=== PATIENT | female | born 1950 | race Two or more races ===

== ENCOUNTER 2017-10-05 15:33 | Emergency (ER) | payer BC ==
[~2017-10-05] VITALS: Ht 160 cm; Wt 111.1 kg
[~2017-10-05 15:33] MED LIST: ALBU18; ASPI81CH43; ERGO1CAP6 PO; FLUT250M2 IN; FURO20TA; FURO20TA3 PO; POTA10CA29; POTA10TA75 PO; PROAIR
[2017-10-05 19:16] LABS: Basophils # (auto) 0 uL; Basophils % (auto) 0.5 % (0.0-2.0); Eosinophils # (auto) 0.1 uL; Eosinophils % (auto) 2.6 % (0.0-7.0); Hematocrit 36.3 % (36.0-46.0); Hemoglobin 12.7 g/dL (12.2-16.2); Lymphocytes % (auto) 17.6 % (10.0-50.0); Mean Corpuscular Hemoglobin 34.2 pg (28.0-32.0); Mean Corpuscular Hgb Conc. 34.9 g/dL (32.0-36.0); Mean Corpuscular Volume 97.9 fL (80.0-100.0); Monocytes # (auto) 0.5 uL; Monocytes % (auto) 7.9 % (0.0-12.0); Neutrophils # (auto) 4.2 uL; Neutrophils % (auto) 71.4 % (37.0-80.0); Nucleated Red Blood Cells % 0.1 %; Platelet Count (auto) 205 10^3/uL (140-450); Red Blood Cells 3.71 10^6/uL (4.0-5.20); Red Cell Distribution Width 15.6 % (11.8-14.3); White Blood Cell 5.9 10^3/uL (4.4-10.8)
[2017-10-05 19:19] LABS: Albumin 4.1 g/dL (3.4-5.0); BUN/Creatinine Ratio 34.8
[2017-10-05 19:29] LABS: Total Protein 7.9 g/dL (6.4-8.2)
[2017-10-06] MEDS ORDERED: HYDROcodone-ACET 5/325MG TAB PO ONE (00:30)
[2017-10-06] MEDS ORDERED: KETOROLAC TROMETH 60MG/2ML VIAL IM ONE (00:30)
[2017-10-06 00:41] VITALS: BP 140/86
== END 2017-10-06 00:45 | disposition home or self-care (01) ==
LOC: ER 15:33
DX: M79.604 Pain in right leg (principal); M06.9 Rheumatoid arthritis, unspecified; J45.909 Unspecified asthma, uncomplicated; M19.90 Unspecified osteoarthritis, unspecified site; Z98.51 Tubal ligation status; Z88.1 Allergy status to other antibiotic agents; Z88.8 Allergy status to other drugs, medicaments and biological substances; Z79.82 Long term (current) use of aspirin; Z79.899 Other long term (current) drug therapy
CPT/HCPCS: 36415; 80053; 85025; 93971; 96372; 99285; J1885

== ENCOUNTER → 2017-10-07 | Outpatient (CLI) | payer BC, MEDICARE ==
[2017-10-07 09:13] LABS: Basophils # (auto) 0 uL; Basophils % (auto) 0.7 % (0.0-2.0); Eosinophils # (auto) 0.1 uL; Eosinophils % (auto) 3.9 % (0.0-7.0); Hematocrit 35.8 % (36.0-46.0); Hemoglobin 12.2 g/dL (12.2-16.2); Lymphocytes # (auto) 0.7 uL; Lymphocytes % (auto) 23.3 % (10.0-50.0); Mean Corpuscular Hemoglobin 33.2 pg (28.0-32.0); Mean Corpuscular Hgb Conc. 34.2 g/dL (32.0-36.0); Monocytes # (auto) 0.2 uL; Monocytes % (auto) 5.2 % (0.0-12.0); Neutrophils # (auto) 2.1 uL; Neutrophils % (auto) 66.9 % (37.0-80.0); Nucleated Red Blood Cells % 0.1 %; Platelet Count (auto) 208 10^3/uL (140-450); White Blood Cell 3.1 10^3/uL (4.4-10.8)
[2017-10-07 09:20] LABS: Albumin 3.8 g/dL (3.4-5.0); BUN/Creatinine Ratio 28.8; Bilirubin, Total 0.8 mg/dL (0.2-1.0); CRP High Sensitivity 0.24 mg/dL (< 0.3); Calcium 8.5 mg/dL (8.5-10.1); Potassium 3.9 mmol/L (3.5-5.1); Total Protein 7.1 g/dL (6.4-8.2); Uric Acid 5.6 mg/dL (2.6-6.0)
[2017-10-07 09:23] LABS: Hepatitis B Surface Antibody Negative
[2017-10-07 10:01] LABS: Hepatitis A Total Antibody Positive
[2017-10-07 13:43] LABS: Hepatitis B Core Total AB Negative; Hepatitis B Surface Antigen Negative (Negative); Hepatitis C Antibody Negative (Negative)
== END | disposition home or self-care (01) ==
LOC: MERGE 07:56 → LAB 07:56
DX: M06.9 Rheumatoid arthritis, unspecified (principal); M79.7 Fibromyalgia; I10 Essential (primary) hypertension; Z79.899 Other long term (current) drug therapy
CPT/HCPCS: 36415; 80053; 82306; 82550; 82607; 84443; 84550; 85025; 85652; 86038; 86141; 86200; 86431; 86704; 86706; 86708; 86803; 86812; 87340

== ENCOUNTER 2017-10-12 09:44 | Inpatient (IN) | payer BC, MEDICARE ==
[~2017-10-12] VITALS: Ht 154.9 cm; Wt 107.0 kg
[2017-10-12] MEDS ORDERED: SODIUM CHLORIDE 0.9% 500 ML IVB ONE (10:09)
[2017-10-12] MEDS ORDERED: ONDANSETRON HCL 4 MG/2 ML VIAL IV ONE ×2 (10:15→12:00)
[2017-10-12] MEDS ORDERED: MORPHINE SULFATE 4 MG/ML SYR/VIAL IV ONE ×2 (10:15→12:00)
[2017-10-12 10:42] LABS: Basophils # (auto) 0 uL; Basophils % (auto) 0.6 % (0.0-2.0); Eosinophils # (auto) 0 uL; Eosinophils % (auto) 0.9 % (0.0-7.0); Hematocrit 38.6 % (36.0-46.0); Hemoglobin 13.6 g/dL (12.2-16.2); Lymphocytes # (auto) 0.4 uL; Lymphocytes % (auto) 7.6 % (10.0-50.0); Mean Corpuscular Hemoglobin 33.5 pg (28.0-32.0); Mean Corpuscular Hgb Conc. 35.1 g/dL (32.0-36.0); Mean Corpuscular Volume 95.5 fL (80.0-100.0); Monocytes # (auto) 0.4 uL; Monocytes % (auto) 8.3 % (0.0-12.0); Neutrophils # (auto) 4.4 uL; Neutrophils % (auto) 82.6 % (37.0-80.0); Platelet Count (auto) 184 10^3/uL (140-450); Red Blood Cells 4.04 10^6/uL (4.0-5.20); Red Cell Distribution Width 15.6 % (11.8-14.3); White Blood Cell 5.3 10^3/uL (4.4-10.8)
[2017-10-12] MEDS ORDERED: MORPHINE SULFATE 8mg/ml INJ SDV IV ONE ×2 (10:45→12:00)
[2017-10-12] MEDS ORDERED: ACYCLOVIR 400 MG TAB PO ONE (10:45)
[2017-10-12 11:02] LABS: Albumin 4.1 g/dL (3.4-5.0); BUN/Creatinine Ratio 16.4; Bilirubin, Total 1.6 mg/dL (0.2-1.0); Magnesium 2.2 mg/dL (1.6-2.6); Potassium 3.8 mmol/L (3.5-5.1); Total Protein 7.9 g/dL (6.4-8.2)
[2017-10-12] MEDS ORDERED: MORPHINE SULFATE 4 MG/ML SYR/VIAL IV PRN ×2 (14:00)
[2017-10-12] MEDS ORDERED: ALBUTEROL SULF 2.5 MG/0.5ML(0.5%) NEB SOLN NEB PRN (14:00)
[2017-10-12] MEDS ORDERED: DEXTROSE (50%) 50ML SYRG IV PRN (14:00)
[2017-10-12] MEDS ORDERED: ONDANSETRON HCL 4 MG/2 ML VIAL IV PRN (14:00)
[2017-10-12] MEDS ORDERED: cefTRIAXone 1GM/10ml IVPUSH 10 ML IV ONE (14:00)
[2017-10-12] MEDS ORDERED: NITROGLYCERIN 0.4 MG SL TAB SL PRN (14:00)
[2017-10-12] MEDS ORDERED: TEMAZEPAM 15 MG CAP PO PRN (14:00)
[2017-10-12] MEDS ORDERED: ACETAMINOPHEN 325 MG TAB PO PRN (14:00)
[2017-10-12] MEDS ORDERED: DOCUSATE SOD 100 MG CAP PO PRN (14:00)
[2017-10-12] MEDS: SODIUM CHLOR 0.9% PF (SALINE LOCK) 10ML VIAL/SYR IV SCH ×2 (14:09→22:52)
[2017-10-12] MEDS: ZINC SULFATE 220 MG CAP PO SCH (14:45)
[2017-10-12] MEDS: ASCORBIC ACID 500 MG TAB PO SCH ×2 (14:45→22:37)
[2017-10-12] MEDS: ACYCLOVIR 400 MG TAB PO SCH ×3 (14:45→22:37)
[2017-10-12 16:21] VITALS: BP 109/59
[2017-10-12 16:36] LABS: Urine Bacteria NONE SEEN /hpf (None Seen); Urine Blood Negative /uL (Negative); Urine Specific Gravity 1.008 (1.001-1.035); Urine WBC 51 /hpf (0 - 5)
[2017-10-12 16:37] VITALS: BP 109/59
[2017-10-12 17:00] VITALS: BP 111/58
[2017-10-12] MEDS: InsuLIN REG 1unit/0.01ml Soln (100units/ml) SC SCH ×2 (17:00→22:50)
[2017-10-12 17:18] VITALS: BP 109/59
[2017-10-12] MEDS: ACCU-CHEK COMFORT CURVE STRIP VI SCH ×2 (18:08→22:41)
[2017-10-12] MEDS: HYDROcodone-ACET 5/325MG TAB PO PRN ×2 (18:28→22:38)
[2017-10-12] MEDS: BUDESONIDE (INHALATION) 0.5 MG/2 ML NEB NEB SCH (19:25)
[2017-10-12 22:00] VITALS: BP 109/61
[2017-10-12] MEDS: FAMOTIDINE 20 MG TAB PO SCH (22:37)
[2017-10-13 05:00] VITALS: BP 130/67
[2017-10-13] MEDS: ACCU-CHEK COMFORT CURVE STRIP VI SCH ×3 (06:02→17:00)
[2017-10-13] MEDS: ACYCLOVIR 400 MG TAB PO SCH ×3 (06:02→14:50)
[2017-10-13] MEDS: SODIUM CHLOR 0.9% PF (SALINE LOCK) 10ML VIAL/SYR IV SCH ×2 (06:02→14:00)
[2017-10-13] MEDS: InsuLIN REG 1unit/0.01ml Soln (100units/ml) SC SCH ×3 (06:12→17:00)
[2017-10-13] MEDS: HYDROcodone-ACET 5/325MG TAB PO PRN ×2 (06:12→14:49)
[2017-10-13 06:42] LABS: Basophils # (auto) 0 uL; Basophils % (auto) 0.8 % (0.0-2.0); Eosinophils # (auto) 0.1 uL; Eosinophils % (auto) 3.3 % (0.0-7.0); Hematocrit 32.9 % (36.0-46.0); Hemoglobin 11.6 g/dL (12.2-16.2); Lymphocytes # (auto) 0.6 uL; Lymphocytes % (auto) 15.2 % (10.0-50.0); Mean Corpuscular Hgb Conc. 35.4 g/dL (32.0-36.0); Mean Corpuscular Volume 96.1 fL (80.0-100.0); Monocytes # (auto) 0.6 uL; Neutrophils # (auto) 2.6 uL; Neutrophils % (auto) 65.7 % (37.0-80.0); Nucleated Red Blood Cells % 0.3 %; Platelet Count (auto) 144 10^3/uL (140-450); Red Blood Cells 3.43 10^6/uL (4.0-5.20); Red Cell Distribution Width 15.7 % (11.8-14.3)
[2017-10-13 07:02] LABS: Potassium 3.9 mmol/L (3.5-5.1)
[2017-10-13 07:17] LABS: Albumin 3.4 g/dL (3.4-5.0); BUN/Creatinine Ratio 21.9; Calcium 8.8 mg/dL (8.5-10.1)
[2017-10-13 07:30] LABS: Bilirubin, Total 1.9 mg/dL (0.2-1.0); Total Protein 6.9 g/dL (6.4-8.2)
[2017-10-13] MEDS: BUDESONIDE (INHALATION) 0.5 MG/2 ML NEB NEB SCH (07:32)
[2017-10-13 08:00] VITALS: BP 124/58
[2017-10-13 09:00] VITALS: BP_SYST 107; BP_SYST 124; BP_DIAS 58; BP_DIAS 75
[2017-10-13] MEDS ORDERED: cefTRIAXone 1GM/10ml IVPUSH 10 ML IV SCH (09:00)
[2017-10-13] MEDS ORDERED: MULTIPLE VITAMIN TAB PO SCH (10:00)
[2017-10-13] MEDS ORDERED: B-COMPLEX W/ C & FOLIC ACID(NEPHROVITE TAB) PO SCH (10:00)
[2017-10-13] MEDS ORDERED: ASPirin-EC 325mg tab PO SCH (10:00)
[2017-10-13] MEDS ORDERED: POTASSIUM CHL 10 Meq TABLET PO SCH (10:00)
[2017-10-13] MEDS ORDERED: FUROSEMIDE 20 MG TAB PO SCH (10:00)
[2017-10-13] MEDS: ZINC SULFATE 220 MG CAP PO SCH (10:09)
[2017-10-13] MEDS: FAMOTIDINE 20 MG TAB PO SCH (10:10)
[2017-10-13] MEDS: ASCORBIC ACID 500 MG TAB PO SCH (10:10)
[2017-10-13 13:00] VITALS: BP 107/75
[2017-10-13 17:00] VITALS: BP 126/74
== END 2017-10-13 17:30 | disposition home or self-care (01) | DRG 872 ==
LOC: ER 09:50 → TELE 09:51 → TELE-WESTW 15:10
PROVIDERS: ADMIT Internal Medicine; ATTEND Family Medicine
DX: A41.9 Sepsis, unspecified organism (principal); B02.9 Zoster without complications; E66.01 Morbid (severe) obesity due to excess calories; N18.3 Chronic kidney disease, stage 3 (moderate); E87.1 Hypo-osmolality and hyponatremia; N28.1 Cyst of kidney, acquired; N12 Tubulo-interstitial nephritis, not specified as acute or chronic; Z68.41 Body mass index [BMI] 40.0-44.9, adult; J45.909 Unspecified asthma, uncomplicated; K40.90 Unilateral inguinal hernia, without obstruction or gangrene, not specified as recurrent; K57.30 Diverticulosis of large intestine without perforation or abscess without bleeding; M19.90 Unspecified osteoarthritis, unspecified site; Z86.73 Personal history of transient ischemic attack (TIA), and cerebral infarction without residual deficits; I70.8 Atherosclerosis of other arteries; L08.82 Omphalitis not of newborn; R73.9 Hyperglycemia, unspecified
CPT/HCPCS: 36415; 74176; 80053; 81001; 82150; 82962; 83036; 83605; 83690; 83735; 84443; 85025; 87040; 87086; 94640; 96361; 96374; 96375; J1815; J2270; J2405

== ENCOUNTER → 2017-11-11 | Outpatient (CLI) | payer BC, MEDICARE ==
[2017-11-11 16:27] LABS: Basophils # (auto) 0 uL; Basophils % (auto) 0.3 % (0.0-2.0); Eosinophils # (auto) 0.1 uL; Eosinophils % (auto) 1.6 % (0.0-7.0); Hemoglobin 13.4 g/dL (12.2-16.2); Lymphocytes # (auto) 1.3 uL; Lymphocytes % (auto) 21.9 % (10.0-50.0); Mean Corpuscular Hemoglobin 33.6 pg (28.0-32.0); Mean Corpuscular Hgb Conc. 35.1 g/dL (32.0-36.0); Mean Corpuscular Volume 95.7 fL (80.0-100.0); Monocytes # (auto) 0.4 uL; Monocytes % (auto) 6.3 % (0.0-12.0); Neutrophils # (auto) 4.2 uL; Neutrophils % (auto) 69.9 % (37.0-80.0); Nucleated Red Blood Cells % 0.1 %; Platelet Count (auto) 192 10^3/uL (140-450); Red Blood Cells 3.97 10^6/uL (4.0-5.20); Red Cell Distribution Width 15.6 % (11.8-14.3)
[2017-11-11 16:33] LABS: Urine Bacteria FEW /hpf (None Seen); Urine Blood Negative /uL (Negative); Urine Mucus FEW (None Seen); Urine Specific Gravity 1.024 (1.001-1.035); Urine WBC 113 /hpf (0 - 5); Urine WBC Clumps PRESENT /hpf (None Seen)
[2017-11-11 16:35] LABS: BUN/Creatinine Ratio 24.6; Calcium 8.8 mg/dL (8.5-10.1)
[2017-11-12 10:29] LABS: Hepatitis B Surface Antibody Negative
[2017-11-12 12:13] LABS: Hepatitis B Surface Antigen Negative (Negative)
== END | disposition home or self-care (01) ==
LOC: LAB 12:21
PROVIDERS: ATTEND Student in an Organized Health Care Education/Training Program
DX: N39.0 Urinary tract infection, site not specified (principal); N18.3 Chronic kidney disease, stage 3 (moderate); D63.1 Anemia in chronic kidney disease; B17.8 Other specified acute viral hepatitis; R76.0 Raised antibody titer; R79.82 Elevated C-reactive protein (CRP); R80.9 Proteinuria, unspecified; R82.90 Unspecified abnormal findings in urine
CPT/HCPCS: 36415; 80048; 81001; 82570; 84156; 85025; 86160; 86225; 86235; 86256; 86706; 87086; 87340

== ENCOUNTER → 2018-01-07 | Outpatient (CLI) | payer BC, MEDICARE | END | disposition home or self-care (01) | LOC: LAB 12:03 | PROVIDERS: ATTEND Student in an Organized Health Care Education/Training Program | DX: R76.9 Abnormal immunological finding in serum, unspecified (principal); N18.3 Chronic kidney disease, stage 3 (moderate); Z88.0 Allergy status to penicillin; Z88.2 Allergy status to sulfonamides | CPT/HCPCS: 84156; 84166 ==

== ENCOUNTER → 2018-01-20 | Outpatient (CLI) | payer BC, MEDICARE ==
[~2018-01-20] MED LIST changes: +MIDAZOLAM HCL 1MG/1ML-2 ML VIAL ONE; +fentaNYL CITRATE 100 MCG/2 ML VL ONE
[2018-01-20 09:01] LABS: Basophils # (auto) 0 uL
[2018-01-20 09:03] LABS: Basophils % (auto) 0.7 % (0.0-2.0); Eosinophils # (auto) 0.2 uL; Eosinophils % (auto) 3.3 % (0.0-7.0); Hematocrit 37.1 % (36.0-46.0); Lymphocytes # (auto) 1.3 uL; Mean Corpuscular Hemoglobin 33.9 pg (28.0-32.0); Mean Corpuscular Hgb Conc. 35.1 g/dL (32.0-36.0); Mean Corpuscular Volume 96.5 fL (80.0-100.0); Monocytes # (auto) 0.3 uL; Monocytes % (auto) 7.2 % (0.0-12.0); Neutrophils % (auto) 62.8 % (37.0-80.0); Platelet Count (auto) 220 10^3/uL (140-450); Red Blood Cells 3.84 10^6/uL (4.0-5.20); Red Cell Distribution Width 15.3 % (11.8-14.3); White Blood Cell 4.8 10^3/uL (4.4-10.8)
[2018-01-20 09:09] LABS: INR 0.88 (0.9-1.15); Partial Thromboplastin Time 26.8 sec (23.78-33.04); Prothrombin Time 9.5 sec (9.27-12.13)
[2018-01-20 10:31] LABS: Albumin 3.7 g/dL (3.4-5.0); BUN/Creatinine Ratio 27.5; Calcium 8.5 mg/dL (8.5-10.1); Potassium 4.2 mmol/L (3.5-5.1)
== END | disposition home or self-care (01) ==
LOC: LAB 07:59
PROVIDERS: ATTEND Urology
DX: N28.1 Cyst of kidney, acquired (principal); I12.9 Hypertensive chronic kidney disease with stage 1 through stage 4 chronic kidney disease, or unspecified chronic kidney disease; N18.3 Chronic kidney disease, stage 3 (moderate)
CPT/HCPCS: 36415; 80053; 85025; 85610; 85730

== ENCOUNTER → 2018-01-21 | Outpatient (CLI) | payer BC, MEDICARE ==
[~2018-01-21] MED LIST changes: +GELATIN 1 SPONGE SIZE 100 TOP ONE; +LIDOCAINE 2% (LOCAL ANESTH.) PF 5ml SDV ONE; -MIDAZOLAM HCL 1MG/1ML-2 ML VIAL ONE; -fentaNYL CITRATE 100 MCG/2 ML VL ONE
== END | disposition home or self-care (01) ==
LOC: CT 08:17
PROVIDERS: ATTEND Urology
DX: N28.1 Cyst of kidney, acquired (principal); Z88.1 Allergy status to other antibiotic agents; Z88.2 Allergy status to sulfonamides; F41.9 Anxiety disorder, unspecified; F10.99 Alcohol use, unspecified with unspecified alcohol-induced disorder; Z82.49 Family history of ischemic heart disease and other diseases of the circulatory system
CPT/HCPCS: 50390; 74150; 75989; 76942; 88104; 88305; C1729; J2001; J2250; J3010; 10022

== ENCOUNTER → 2018-02-09 | Outpatient (CLI) | payer BC, MEDICARE ==
[~2018-02-09] MED LIST changes: -GELATIN 1 SPONGE SIZE 100 TOP ONE; -LIDOCAINE 2% (LOCAL ANESTH.) PF 5ml SDV ONE
[2018-02-09 08:34] LABS: Basophils # (auto) 0 uL; Eosinophils # (auto) 0.1 uL; Eosinophils % (auto) 2.7 % (0.0-7.0); Hematocrit 36.9 % (36.0-46.0); Hemoglobin 13.2 g/dL (12.2-16.2); Lymphocytes # (auto) 1.1 uL; Lymphocytes % (auto) 24.5 % (10.0-50.0); Mean Corpuscular Hemoglobin 35.4 pg (28.0-32.0); Mean Corpuscular Hgb Conc. 35.9 g/dL (32.0-36.0); Mean Corpuscular Volume 98.4 fL (80.0-100.0); Monocytes # (auto) 0.4 uL; Monocytes % (auto) 8.5 % (0.0-12.0); Neutrophils % (auto) 63.3 % (37.0-80.0); Platelet Count (auto) 207 10^3/uL (140-450); Red Blood Cells 3.75 10^6/uL (4.0-5.20); Red Cell Distribution Width 15.4 % (11.8-14.3); White Blood Cell 4.7 10^3/uL (4.4-10.8)
[2018-02-09 08:58] LABS: BUN/Creatinine Ratio 26.9; Calcium 8.5 mg/dL (8.5-10.1); Potassium 4.1 mmol/L (3.5-5.1)
[2018-02-09 12:48] LABS: Urine Bacteria NONE SEEN /hpf (None Seen); Urine Blood Negative /uL (Negative); Urine Mucus FEW (None Seen); Urine Specific Gravity 1.027 (1.001-1.035); Urine WBC 16 /hpf (0 - 5)
[2018-02-09 13:18] LABS: Protein, Urine 13.9 mg/dL (0.0-11.9)
== END | disposition home or self-care (01) ==
LOC: LAB 08:12
PROVIDERS: ATTEND Student in an Organized Health Care Education/Training Program
DX: I12.9 Hypertensive chronic kidney disease with stage 1 through stage 4 chronic kidney disease, or unspecified chronic kidney disease (principal); N18.3 Chronic kidney disease, stage 3 (moderate); D63.1 Anemia in chronic kidney disease; R80.9 Proteinuria, unspecified; E21.3 Hyperparathyroidism, unspecified
CPT/HCPCS: 36415; 80048; 80061; 81001; 82570; 84156; 85025

== ENCOUNTER → 2018-03-03 | Outpatient (CLI) | payer BC, MEDICARE | END | disposition home or self-care (01) | LOC: LAB 14:34 | PROVIDERS: ATTEND Urology | DX: N39.0 Urinary tract infection, site not specified (principal) | CPT/HCPCS: 87086 ==

== ENCOUNTER → 2018-03-21 | Outpatient (CLI) | payer BC, MEDICARE ==
[2018-03-21 13:04] LABS: Basophils # (auto) 0 uL; Eosinophils # (auto) 0.1 uL; Hemoglobin 13.4 g/dL (12.2-16.2); Mean Corpuscular Hemoglobin 34.1 pg (28.0-32.0); Mean Corpuscular Hgb Conc. 34.8 g/dL (32.0-36.0); Mean Corpuscular Volume 97.9 fL (80.0-100.0); Monocytes # (auto) 0.3 uL; Neutrophils # (auto) 2.6 uL; Nucleated Red Blood Cells % 0.1 %; White Blood Cell 4.1 10^3/uL (4.4-10.8)
[2018-03-21 13:09] LABS: Basophils % (auto) 0.6 % (0.0-2.0); Eosinophils % (auto) 3.2 % (0.0-7.0); Hematocrit 38.5 % (36.0-46.0); Lymphocytes # (auto) 1.1 uL; Lymphocytes % (auto) 26.3 % (10.0-50.0); Monocytes % (auto) 6.5 % (0.0-12.0); Neutrophils % (auto) 63.4 % (37.0-80.0); Platelet Count (auto) 193 10^3/uL (140-450); Red Blood Cells 3.93 10^6/uL (4.0-5.20); Red Cell Distribution Width 14.4 % (11.8-14.3)
[2018-03-21 13:32] LABS: Hepatitis B Surface Antibody Negative
[2018-03-21 13:38] LABS: Albumin 3.7 g/dL (3.4-5.0); Bilirubin, Total 0.9 mg/dL (0.2-1.0); CRP High Sensitivity 0.16 mg/dL (< 0.3); Calcium 8.5 mg/dL (8.5-10.1); Total Protein 7.3 g/dL (6.4-8.2)
[2018-03-21 13:59] LABS: Urine Bacteria NONE SEEN /hpf (None Seen); Urine Blood Negative /uL (Negative); Urine Mucus FEW (None Seen); Urine Specific Gravity 1.027 (1.001-1.035); Urine WBC 2 /hpf (0 - 5)
[2018-03-21 14:11] LABS: Hepatitis A Total Antibody Positive
[2018-03-21 14:23] LABS: Protein, Urine 17.8 mg/dL (0.0-11.9)
[2018-03-21 14:36] LABS: Hepatitis B Core Total AB Negative; Hepatitis B Surface Antigen Negative (Negative); Hepatitis C Antibody Negative (Negative)
[2018-03-22 09:07] LABS: Immunoglobulin G, Serum 947 mg/dL (700-1600)
== END | disposition home or self-care (01) ==
LOC: LAB 10:57
PROVIDERS: ATTEND Internal Medicine
DX: E03.5 Myxedema coma (principal); M85.89 Other specified disorders of bone density and structure, multiple sites; M06.9 Rheumatoid arthritis, unspecified; N28.1 Cyst of kidney, acquired; I10 Essential (primary) hypertension
CPT/HCPCS: 36415; 80053; 81001; 82085; 82306; 82550; 82570; 82784; 84155; 84156; 84165; 84166; 84443; 85025; 85652; 86141; 86160; 86200; 86334; 86431; 86704; 86706; 86708; 86800; 86803; 87340

== ENCOUNTER → 2018-09-15 | Outpatient (CLI) | payer BC, MEDICARE ==
[2018-09-15 08:16] LABS: Albumin 3.7 g/dL (3.4-5.0); Calcium 8.5 mg/dL (8.5-10.1); Potassium 4.3 mmol/L (3.5-5.1)
[2018-09-15 08:52] LABS: Bilirubin, Total 0.6 mg/dL (0.2-1.0); Total Protein 6.8 g/dL (6.4-8.2)
[2018-09-15 16:18] LABS: Urine Bacteria FEW /hpf (None Seen); Urine Blood TRACE /uL (Negative); Urine Specific Gravity 1.022 (1.001-1.035); Urine WBC 114 /hpf (0 - 5)
== END | disposition home or self-care (01) ==
LOC: LAB 07:26
DX: R10.9 Unspecified abdominal pain (principal)
CPT/HCPCS: 36415; 80053; 81001; 87086

== ENCOUNTER → 2018-10-24 | Outpatient (CLI) | payer BC, MEDICARE | END | disposition home or self-care (01) | LOC: LAB 08:51 | PROVIDERS: ATTEND Nurse Practitioner Family | DX: R05 Cough (principal) | CPT/HCPCS: 87070; 87205 ==

== ENCOUNTER → 2019-02-03 | Outpatient (CLI) | payer BC, MEDICARE ==
[~2019-02-03] MED LIST changes: +FURO1TAB33; -FURO20TA
[2019-02-03 12:41] LABS: Basophils # (auto) 0.1 uL; Eosinophils # (auto) 0.1 uL; Eosinophils % (auto) 1.9 % (0.0-7.0); Hematocrit 39.7 % (36.0-46.0); Hemoglobin 13.7 g/dL (12.2-16.2); Lymphocytes # (auto) 1.2 uL; Lymphocytes % (auto) 22.6 % (10.0-50.0); Mean Corpuscular Hemoglobin 33.8 pg (28.0-32.0); Mean Corpuscular Hgb Conc. 34.5 g/dL (32.0-36.0); Mean Corpuscular Volume 98.1 fL (80.0-100.0); Monocytes # (auto) 0.3 uL; Monocytes % (auto) 5.7 % (0.0-12.0); Neutrophils # (auto) 3.7 uL; Neutrophils % (auto) 68.8 % (37.0-80.0); Nucleated Red Blood Cells % 0.1 %; Platelet Count (auto) 217 10^3/uL (140-450); Red Blood Cells 4.05 10^6/uL (4.0-5.20); White Blood Cell 5.4 10^3/uL (4.4-10.8)
[2019-02-03 13:00] LABS: Urine Bacteria FEW /hpf (None Seen); Urine Blood Negative /uL (Negative); Urine Specific Gravity 1.021 (1.001-1.035); Urine WBC 15 /hpf (0 - 5)
[2019-02-03 13:32] LABS: Albumin 4.1 g/dL (3.4-5.0); Calcium 9.2 mg/dL (8.5-10.1); Potassium 3.5 mmol/L (3.5-5.1)
[2019-02-03 13:36] LABS: BUN/Creatinine Ratio 24.4; Bilirubin, Total 0.8 mg/dL (0.2-1.0); CRP High Sensitivity 0.1 mg/dL (< 0.3); Total Protein 7.8 g/dL (6.4-8.2)
== END | disposition home or self-care (01) ==
LOC: LAB 11:56
PROVIDERS: ATTEND Internal Medicine
DX: Z00.00 Encounter for general adult medical examination without abnormal findings (principal); N28.1 Cyst of kidney, acquired; I10 Essential (primary) hypertension; E55.9 Vitamin D deficiency, unspecified; M32.10 Systemic lupus erythematosus, organ or system involvement unspecified; M05.79 Rheumatoid arthritis with rheumatoid factor of multiple sites without organ or systems involvement
CPT/HCPCS: 36415; 80053; 80061; 81001; 83036; 84156; 84439; 84443; 85025; 85652; 86141; 86160; 86200; 86225; 86431

== ENCOUNTER 2019-04-10 08:21 | Day surgery (SDC) | payer BC, MEDICARE ==
[2019-04-06 12:15] LABS: Basophils # (auto) 0 uL; Basophils % (auto) 0.8 % (0.0-2.0); Eosinophils # (auto) 0.1 uL; Eosinophils % (auto) 2.4 % (0.0-7.0); Hematocrit 38.7 % (36.0-46.0); Hemoglobin 13.5 g/dL (12.2-16.2); Lymphocytes # (auto) 1.3 uL; Mean Corpuscular Hemoglobin 33.6 pg (28.0-32.0); Mean Corpuscular Hgb Conc. 34.8 g/dL (32.0-36.0); Mean Corpuscular Volume 96.4 fL (80.0-100.0); Monocytes # (auto) 0.4 uL; Monocytes % (auto) 7.9 % (0.0-12.0); Neutrophils # (auto) 3.4 uL; Neutrophils % (auto) 64.9 % (37.0-80.0); Nucleated Red Blood Cells % 0.2 %; Platelet Count (auto) 236 10^3/uL (140-450); Red Blood Cells 4.01 10^6/uL (4.0-5.20); Red Cell Distribution Width 14.4 % (11.8-14.3); White Blood Cell 5.3 10^3/uL (4.4-10.8)
[2019-04-06 12:45] LABS: INR 0.99 (0.9-1.15); Partial Thromboplastin Time 26.3 sec (23.64-32.05)
[~2019-04-10] VITALS: Ht 160 cm; Wt 113.4 kg
[~2019-04-10 08:21] MED LIST changes: -ALBU18; +ALBU18 IN; -ASPI81CH43; +ASPI81CH43 PO; -ERGO1CAP6 PO; -FLUT250M2 IN; -FURO1TAB33; -FURO20TA3 PO; +HYDR-4188 PO; +LIDOCAINE VISCOUS 2% 15ML UD ONE; +METH2.5T3 PO; -POTA10CA29; -POTA10TA75 PO; -PROAIR; +SODIUM CHLORIDE LOCK 10 ML ONE
[2019-04-10] MEDS ORDERED: diphenhdrAMINE HCL 50 MG/1 ML VL ONE (08:22)
[2019-04-10] MEDS: fentaNYL CITRATE 100 MCG/2 ML VL ONE ×2 (08:52→09:04)
[2019-04-10] MEDS: MIDAZOLAM HCL 5 MG/ML-1ML VIAL ONE ×2 (08:52→09:04)
[2019-04-10 09:43] VITALS: BP 133/77
== END 2019-04-10 09:55 | disposition home or self-care (01) ==
LOC: GI 08:21
PROVIDERS: ATTEND Internal Medicine Gastroenterology
DX: K63.5 Polyp of colon (principal); K29.80 Duodenitis without bleeding; K57.30 Diverticulosis of large intestine without perforation or abscess without bleeding; K29.50 Unspecified chronic gastritis without bleeding; J45.909 Unspecified asthma, uncomplicated; D64.9 Anemia, unspecified; N18.3 Chronic kidney disease, stage 3 (moderate); Z86.73 Personal history of transient ischemic attack (TIA), and cerebral infarction without residual deficits; Z79.01 Long term (current) use of anticoagulants; Z98.51 Tubal ligation status; Z98.890 Other specified postprocedural states; Z79.899 Other long term (current) drug therapy; Z88.2 Allergy status to sulfonamides; Z88.1 Allergy status to other antibiotic agents
CPT/HCPCS: 36415; 43239; 45378; 85025; 85610; 85730; 88305; 88342; J1200; J2250; J3010; J7030; 99152

== ENCOUNTER 2019-05-30 14:23 | Inpatient (IN) | payer BC, MEDICARE ==
[~2019-05-30] VITALS: Ht 160 cm; Wt 121.3 kg
[~2019-05-30 14:23] MED LIST changes: -LIDOCAINE VISCOUS 2% 15ML UD ONE; -SODIUM CHLORIDE LOCK 10 ML ONE
--- NOTE | 2019-05-30 14:30 | NUR ---
Direct Admit Note SIOBHAN ASHRAF admitted to Telemetry unit as a direct admit per MD order. Patient oriented to JESS ESCOBAR,RN primary RN, unit, room, bed, and unit policies regarding patient care and visiting hours. Patient now on continuous telemetry monitoring, tele box #10 and telemetry reading on arrival to unit is ST 102BPM. Patient placed on bedside oxygen @ 3L N/C, weighed by bedscale and encouraged to call if they need something. Bed in lowest/locked position, bed rails up x2, call light within reach. All questions and concerns addressed, patient verbalized understanding. MD notified of patients arrival and admit orders received.
[2019-05-30] MEDS ORDERED: ONDANSETRON HCL 4 MG/2 ML VIAL IV PRN (15:00)
[2019-05-30] MEDS ORDERED: NITROGLYCERIN 0.4 MG SL TAB SL PRN (15:00)
[2019-05-30] MEDS ORDERED: cefTRIAXone 1GM/50ML D5W 50 ML IV ONE (15:00)
[2019-05-30] MEDS ORDERED: ALUM & MAG HYDROX-SIMETH LIQ(MAALOX) 30 ML PO PRN (15:00)
[2019-05-30] MEDS ORDERED: MORPHINE SULF INJ 2 MG/ML SYRINGE 1ML IV PRN (15:00)
[2019-05-30] MEDS ORDERED: TEMAZEPAM 15 MG CAP PO PRN (15:00)
[2019-05-30] MEDS ORDERED: HYDROcodone-ACET 5/325MG TAB PO PRN (15:00)
[2019-05-30 15:06] VITALS: BP 129/74
[2019-05-30 15:22] LABS: Basophils # (auto) 0.1 uL; Basophils % (auto) 1.2 % (0.0-2.0); Eosinophils # (auto) 0.1 uL; Eosinophils % (auto) 2.7 % (0.0-7.0); Hematocrit 37.9 % (36.0-46.0); Lymphocytes # (auto) 0.9 uL; Mean Corpuscular Hemoglobin 33.6 pg (28.0-32.0); Mean Corpuscular Hgb Conc. 34.4 g/dL (32.0-36.0); Mean Corpuscular Volume 97.7 fL (80.0-100.0); Monocytes # (auto) 0.4 uL; Monocytes % (auto) 8.5 % (0.0-12.0); Neutrophils # (auto) 3.3 uL; Neutrophils % (auto) 69.6 % (37.0-80.0); Nucleated Red Blood Cells % 0.1 %; Platelet Count (auto) 198 10^3/uL (140-450); Red Blood Cells 3.88 10^6/uL (4.0-5.20); Red Cell Distribution Width 14.7 % (11.8-14.3); White Blood Cell 4.7 10^3/uL (4.4-10.8)
[2019-05-30 15:38] LABS: Albumin 3.8 g/dL (3.4-5.0); Calcium 8.7 mg/dL (8.5-10.1); Magnesium 2.3 mg/dL (1.6-2.6)
[2019-05-30 15:41] LABS: BUN/Creatinine Ratio 28.9; Bilirubin, Total 0.7 mg/dL (0.2-1.0); Total Protein 7.3 g/dL (6.4-8.2)
[2019-05-30 15:42] LABS: Partial Thromboplastin Time 26.8 sec (23.64-32.05)
[2019-05-30] MEDS ORDERED: LEVOFLOXACIN 500MG 100 ML IV ONE (16:00)
[2019-05-30] MEDS ORDERED: OPTISON 3ml Vial for INJ IV ONE (16:06)
[2019-05-30] MEDS ORDERED: FUROSEMIDE 40 MG/4 ML VIAL IV ONE (16:15)
--- NOTE | 2019-05-30 16:40 | NUR ---
MD ROUNDS JG QUARLES AT BEDSIDE DISCUSSING POC WITH PATIENT. ALL QUESTIONS/CONCERNS ANSWERED. NEW ORDERS RECEIVED/CARRIED OUT. WILL CONTINUE TO MONITOR
[2019-05-30] MEDS ORDERED: ASPirin 81 mg TAB PO ONE (17:15)
[2019-05-30 17:35] VITALS: BP 134/82
[2019-05-30] MEDS: ALBUTEROL SULF 2.5 MG/0.5ML(0.5%) NEB SOLN NEB PRN (18:49)
[2019-05-30] MEDS: BUDESONIDE (INHALATION) 0.5 MG/2 ML NEB NEB SCH (18:50)
[2019-05-30] MEDS: IPRATROPIUM BROM 0.5 MG/2.5ML INH SOL NEB PRN (18:50)
--- NOTE | 2019-05-30 19:42 | NUR ---
LAB UA SENT
--- NOTE | 2019-05-30 20:18 | NUR ---
LAB UA SENT Addendum: 05/31/19 at 0019 by JESS ESCOBAR RN RN DUPLICATE
[2019-05-30 20:25] LABS: Urine Bacteria FEW /hpf (None Seen); Urine Blood Negative /uL (Negative); Urine Mucus FEW (None Seen); Urine Specific Gravity 1.019 (1.001-1.035); Urine WBC 22 /hpf (0 - 5)
[2019-05-30 20:31] LABS: Cholesterol 154 mg/dL (< 200)
[2019-05-30 20:34] LABS: HDL Cholesterol 50 mg/dL (40-59); LDL Cholesterol 91 mg/dL (< 100); Triglycerides 77 mg/dL (< 150)
[2019-05-30 22:00] VITALS: BP 99/49
[2019-05-30] MEDS: CARVEDILOL 3.125 MG TAB PO SCH (22:00)
--- NOTE | 2019-05-30 22:00 | NUR ---
EKG EKG SUBMITTED TO CHART PER MD ORDER
[2019-05-30] MEDS: SACUBITRIL-VALSARTAN 24mg/26mg TAB PO SCH (22:27)
[2019-05-30] MEDS: ATORVASTATIN 20 MG TAB PO SCH (22:27)
[2019-05-30] MEDS: SODIUM CHLOR 0.9% PF (SALINE LOCK) 10ML VIAL/SYR IV SCH (22:28)
[2019-05-30] MEDS: methylPREDNISolone SOD SUCC 125 MG/2 ML VL IV SCH (22:28)
[2019-05-31 00:40] VITALS: BP 99/49
--- NOTE | 2019-05-31 03:30 | NUR ---
RECEIVED REPORT. ASSUMED CARE.
[2019-05-31 05:00] VITALS: BP 115/65
[2019-05-31] MEDS: SODIUM CHLOR 0.9% PF (SALINE LOCK) 10ML VIAL/SYR IV SCH ×3 (06:00→22:01)
[2019-05-31 06:40] LABS: BUN/Creatinine Ratio 21.6; Calcium 9.1 mg/dL (8.5-10.1); Magnesium 2.3 mg/dL (1.6-2.6); Potassium 4.2 mmol/L (3.5-5.1)
[2019-05-31] MEDS: FUROSEMIDE 40 MG/4 ML VIAL IV SCH ×2 (06:45→18:30)
[2019-05-31] MEDS: ADENOSINE 101 MG in GIVE UN-DILUTED 0 ML IV STA ×2 (08:19→09:17)
--- NOTE | 2019-05-31 08:31 | NUR ---
PER STRESS TEST LABS REQUEST, SECOND IV STARTED TO RT FOREARM JUST ABOVE WRIST 20GA. ON FIRST ATTEMPT. HEPLOCKED.
[2019-05-31 08:56] VITALS: BP 110/64
--- NOTE | 2019-05-31 09:09 | NUR ---
[facility], faxed ss order and packet to [facility]
[2019-05-31] MEDS: IPRATROPIUM BROM 0.5 MG/2.5ML INH SOL NEB PRN (09:23)
[2019-05-31] MEDS: BUDESONIDE (INHALATION) 0.5 MG/2 ML NEB NEB SCH ×2 (09:23→22:15)
[2019-05-31] MEDS: ALBUTEROL SULF 2.5 MG/0.5ML(0.5%) NEB SOLN NEB PRN (09:23)
[2019-05-31] MEDS: cefTRIAXone 1GM/50ML D5W 50 ML IV SCH (09:29)
[2019-05-31] MEDS: methylPREDNISolone SOD SUCC 125 MG/2 ML VL IV SCH ×2 (10:15→22:01)
[2019-05-31] MEDS: CARVEDILOL 3.125 MG TAB PO SCH ×2 (10:16→22:00)
[2019-05-31] MEDS: SACUBITRIL-VALSARTAN 24mg/26mg TAB PO SCH ×2 (10:17→21:59)
[2019-05-31] MEDS: LEVOFLOXACIN 500MG 100 ML IV SCH (10:24)
[2019-05-31 12:30] VITALS: BP 106/67
--- NOTE | 2019-05-31 12:49 | NUR ---
IV TO LEFT ARM SORE RED. FLUSHES WELL BUT IS VERY UNCOMFORTABLE. SITE DC'D CANNULA INTACT. HOUSESMITH AT BEDSIDE STATES SECOND IV WILL BE NEEDED TOMORROW. AND THAT OK FOR PT TO EAT AT LUNCH.
--- NOTE | 2019-05-31 13:12 | NUR ---
CARDIAC STRESS TEST STAFF COMES TO TAKE PT FOR FIRST PART OF THIS TEST. CONFIRMS OK TO EAT PRIOR FOR THIS PORTION OF THE TEST. IV HAS BEEN HEPLOCKED AFTER IVPB.
[2019-05-31 17:16] VITALS: BP 122/78
--- NOTE | 2019-05-31 18:54 | NUR ---
LATRELL HALL HERE TEACHING PT ON USE OF THEIR DEVISE FOR USE ON DC HOME.
--- NOTE | 2019-05-31 19:40 | NUR ---
Opening Shift Note Assumed care of patient, awake and alert oriented x4. No S/S of distress/SOB noted. Bed is in lowest locked position with bed rails up x2 and call light is within reach of the patient. Life vest is on the patient and instructed she is on strict I AND O's. Patient verbalized understanding. Instructed on POC and to call for assist PRN.
[2019-05-31] MEDS: ATORVASTATIN 20 MG TAB PO SCH (21:59)
[2019-05-31 22:00] VITALS: BP 104/64
[2019-05-31] MEDS: ACETAMINOPHEN 325 MG TAB PO PRN (22:00)
--- NOTE | 2019-06-01 02:11 | NUR ---
rapid influenza swab sent to lab
[2019-06-01 05:00] VITALS: BP 94/56
[2019-06-01] MEDS: SODIUM CHLOR 0.9% PF (SALINE LOCK) 10ML VIAL/SYR IV SCH ×3 (05:45→22:45)
[2019-06-01] MEDS: FUROSEMIDE 40 MG/4 ML VIAL IV SCH (05:45)
[2019-06-01] MEDS: BUDESONIDE (INHALATION) 0.5 MG/2 ML NEB NEB SCH ×2 (08:19→19:32)
[2019-06-01] MEDS: ALBUTEROL SULF 2.5 MG/0.5ML(0.5%) NEB SOLN NEB PRN (08:19)
[2019-06-01 09:15] VITALS: BP 109/73
[2019-06-01] MEDS: cefTRIAXone 1GM/50ML D5W 50 ML IV SCH (10:34)
--- NOTE | 2019-06-01 10:34 | NUR ---
RETURNS FROM CARDIAC STRESS TEST. PLACED BACK ON TELE MONITOR. LIFE VEST IN PLACE. DENIES ANY DISCOMFORT. SCHEDULED IVPB INITIATED. ASSISTED WITH POSITIONING BED LINENS.
[2019-06-01] MEDS: CARVEDILOL 3.125 MG TAB PO SCH ×2 (11:00→22:53)
[2019-06-01] MEDS: methylPREDNISolone SOD SUCC 125 MG/2 ML VL IV SCH ×2 (11:00→22:45)
[2019-06-01] MEDS: SACUBITRIL-VALSARTAN 24mg/26mg TAB PO SCH ×2 (11:00→22:44)
[2019-06-01 12:49] VITALS: BP 121/69
[2019-06-01] MEDS: LEVOFLOXACIN 500MG 100 ML IV SCH (13:33)
--- NOTE | 2019-06-01 14:51 | NUR ---
URINE SPECIMEN SENT TO LAB. ASSISTED PT IN TROUBLE SHOOTING AND REPOSITIONING LIFE VEST THAT INDICATED IMPROPER PLACEMENT.
[2019-06-01] MEDS ORDERED: METH2.5T3 PO (15:19)
[2019-06-01] MEDS ORDERED: HYDR-4188 OR (15:19)
[2019-06-01] MEDS ORDERED: METHOTREXATE 2.5 MG TAB PO SCH (15:30)
[2019-06-01 17:03] VITALS: BP 128/81
[2019-06-01] MEDS: FUROSEMIDE 20 MG/2 ML VIAL IV SCH (18:20)
--- NOTE | 2019-06-01 18:34 | NUR ---
RT NOTE PT EATING EVENING MEAL. RT WILL RETURN
--- NOTE | 2019-06-01 19:28 | NUR ---
RT NOTE PT WAS SEEN BY RT FOR HHN TX. PT TOLERATES WELL VIA MOUTHPIECE. NO ADVERSE REACTION NOTED. CONT ORDERED Addendum: 06/01/19 at 1956 by Johana Solano RT Amended: Links added.
--- NOTE | 2019-06-01 19:30 | NUR ---
Opening Shift Note Assumed care of patient, awake and alert oriented x4. No S/S of distress/SOB noted. Bed is in lowest locked position with bed rails up x2 and call light is within reach of the patient. Life vest is on the patient and instructed she is on strict I AND O's. Patient verbalized understanding. Instructed on POC and to call for assist PRN. Life vest is on the patient.
[2019-06-01 21:00] VITALS: BP 103/63
[2019-06-01] MEDS: ATORVASTATIN 20 MG TAB PO SCH (22:44)
[2019-06-01] MEDS: HYDROXYCHLOROQUINE SULFATE 200 MG TAB PO SCH (22:44)
[2019-06-01] MEDS: ACETAMINOPHEN 325 MG TAB PO PRN (22:44)
[2019-06-01 23:37] LABS: Protein, Urine 33.5 mg/dL (0.0-11.9)
[2019-06-02 04:30] VITALS: BP 114/68
--- NOTE | 2019-06-02 04:59 | NUR ---
EKG DONE AND PLACED IN CHART. PATIENT TOLERATED WELL.
[2019-06-02] MEDS: SODIUM CHLOR 0.9% PF (SALINE LOCK) 10ML VIAL/SYR IV SCH ×3 (05:56→22:09)
[2019-06-02] MEDS: FUROSEMIDE 20 MG/2 ML VIAL IV SCH ×2 (05:56→18:28)
[2019-06-02 08:00] VITALS: BP 129/77
[2019-06-02 08:20] LABS: Basophils # (auto) 0 uL; Basophils % (auto) 0.3 % (0.0-2.0); Eosinophils # (auto) 0 uL; Hematocrit 41.3 % (36.0-46.0); Hemoglobin 14.3 g/dL (12.2-16.2); Lymphocytes # (auto) 0.4 uL; Lymphocytes % (auto) 4.1 % (10.0-50.0); Mean Corpuscular Hemoglobin 33.5 pg (28.0-32.0); Mean Corpuscular Hgb Conc. 34.6 g/dL (32.0-36.0); Mean Corpuscular Volume 96.8 fL (80.0-100.0); Monocytes # (auto) 0.2 uL; Neutrophils # (auto) 8.4 uL; Neutrophils % (auto) 93.6 % (37.0-80.0); Nucleated Red Blood Cells % 0.2 %; Platelet Count (auto) 237 10^3/uL (140-450); Red Blood Cells 4.27 10^6/uL (4.0-5.20)
[2019-06-02 08:31] LABS: INR 1.05 (0.9-1.15); Partial Thromboplastin Time 25.1 sec (23.64-32.05)
[2019-06-02 08:32] LABS: BUN/Creatinine Ratio 29.5; Calcium 8.5 mg/dL (8.5-10.1); Potassium 4.2 mmol/L (3.5-5.1)
[2019-06-02] MEDS: BUDESONIDE (INHALATION) 0.5 MG/2 ML NEB NEB SCH ×2 (08:33→22:00)
--- NOTE | 2019-06-02 08:50 | NUR ---
[facility] CALLS FOR PT. TRANSPORTED TO CCL. CHECK LIST COMPLETE. CONSENTS PREPARED.
[2019-06-02] MEDS: SACUBITRIL-VALSARTAN 24mg/26mg TAB PO SCH ×2 (10:00→22:07)
[2019-06-02] MEDS: CARVEDILOL 3.125 MG TAB PO SCH ×2 (10:00→22:00)
[2019-06-02] MEDS: HYDROXYCHLOROQUINE SULFATE 200 MG TAB PO SCH ×2 (10:00→22:09)
[2019-06-02] MEDS ORDERED: IOHEXOL 350 MG/ML 100ML IJ ONE ×2 (10:03→11:59)
[2019-06-02] MEDS ORDERED: LIDOCAINE 2%HCL (LOCAL ANESTH.) INJ 20ML MDV ONE ×2 (10:04→11:59)
[2019-06-02] MEDS ORDERED: ANGIOMAX 250 MG VIAL IV ONE (11:57)
[2019-06-02] MEDS ORDERED: fentaNYL CITRATE 100 MCG/2 ML VL ONE (11:58)
[2019-06-02] MEDS ORDERED: HEPARIN SODIUM (PORCINE) 5000 UNITS/ML 1ML VIAL ONE (11:58)
[2019-06-02] MEDS ORDERED: MIDAZOLAM HCL 1MG/1ML-2 ML VIAL ONE (11:58)
[2019-06-02] MEDS ORDERED: SODIUM CHL 0.9% 0 ML ONE (11:58)
[2019-06-02] MEDS ORDERED: VERAPAMIL 2.5MG/ML INJ 2ML VIAL IV ONE (11:58)
--- NOTE | 2019-06-02 14:00 | NUR ---
RETURNS FROM CCL. ASSESS RT GROIN FOUND SOFT TO TOUCH, DSG D&I NO STAINING. STRONG PEDAL PULSE. TEACHING REGARDING RESTRICTIONS. PLANNED USE OF BEDPAN. DR. ELLIOTT ROUNDS AND VISITS PT.
--- NOTE | 2019-06-02 14:20 | NUR ---
RIGHT GROIN CHECK BENIGN.
--- NOTE | 2019-06-02 15:08 | NUR ---
RIGHT GROIN CHECK SOFT TO TOUCH. DSG NO STAINING. SMALL BRUISE DISCOLORATION AROUND EDGES NOW VISIBLE. DENIES NEED TO VOID AT THIS TIME.
[2019-06-02] MEDS ORDERED: ATOR20TA50 PO (15:35)
[2019-06-02] MEDS ORDERED: CHOL20007 OR (15:35)
[2019-06-02] MEDS ORDERED: CAR3125T PO (15:35)
[2019-06-02] MEDS ORDERED: FURO40TA4 PO (15:35)
[2019-06-02] MEDS ORDERED: SACU1TAB PO (15:35)
[2019-06-02] MEDS ORDERED: LEVO-28 PO (15:35)
[2019-06-02] MEDS ORDERED: POTA10TA51 PO (15:35)
[2019-06-02 17:00] VITALS: BP 132/84
[2019-06-02] MEDS ORDERED: METHOTREXATE 2.5 MG TAB PO SCH (17:45)
--- NOTE | 2019-06-02 17:56 | NUR ---
GROIN BENIGN. UP TO BR. GROIN REMAINS STABLE.
[2019-06-02] MEDS: LEVOFLOXACIN 500 MG TAB PO SCH (18:27)
--- NOTE | 2019-06-02 19:30 | NUR ---
Opening Shift Note Assumed care of patient, awake and alert oriented x4. No S/S of distress/SOB noted. Bed is in lowest locked position with bed rails up x2 and call light is within reach of the patient. Life vest is on the patient and instructed she is on strict I AND O's. Patient verbalized understanding. Instructed on POC and to call for assist PRN. Life vest is on the patient. Dressing to right groin is dry and intact.
[2019-06-02 21:00] VITALS: BP 92/41
[2019-06-02 21:30] VITALS: BP 132/84
--- NOTE | 2019-06-02 22:00 | NUR ---
Respiratory note: PT REFUSED MED NEB TX AT THIS TIME. HR 78, RR 16, SPO2 96% ON 2L NC. NO SIGNS OF ANY RESPIRATORY DISTRESS NOTED. ADVISED PT TO CALL IF TX IS NEEDED. RT NAME AND PAGER NUMBER WRITTEN ON PT'S BOARD.
[2019-06-02] MEDS: ATORVASTATIN 20 MG TAB PO SCH (22:08)
[2019-06-02] MEDS: ACETAMINOPHEN 325 MG TAB PO PRN (22:17)
[2019-06-03 04:30] VITALS: BP 96/48
[2019-06-03] MEDS: FUROSEMIDE 20 MG/2 ML VIAL IV SCH (05:30)
[2019-06-03] MEDS: SODIUM CHLOR 0.9% PF (SALINE LOCK) 10ML VIAL/SYR IV SCH (05:31)
[2019-06-03] MEDS: BUDESONIDE (INHALATION) 0.5 MG/2 ML NEB NEB SCH (07:27)
--- NOTE | 2019-06-03 07:55 | NUR ---
Opening Shift Note Assumed care of patient, awake , alert and oriented x4. No S/S of distress/SOB noted. Bed is in lowest locked position with bed rails up x2 and call light is within reach of the patient. Life vest is on the patient. Patient instructed on fluid restriction. Patient verbalized understanding. Instructed on POC and to call for assist PRN. Dressing to right groin is dry and intact. Moderated sized bruise noted on the bottom of the dressing. No c/o pain , tender to touch. Will continue to monitor PRN.
[2019-06-03 07:56] LABS: Potassium 3.8 mmol/L (3.5-5.1)
[2019-06-03 08:00] VITALS: BP 100/46
[2019-06-03 08:05] LABS: Albumin 3.2 g/dL (3.4-5.0); BUN/Creatinine Ratio 36.3; Bilirubin, Total 0.5 mg/dL (0.2-1.0); Calcium 8.3 mg/dL (8.5-10.1)
[2019-06-03 09:00] VITALS: BP 97/33
[2019-06-03] MEDS: CARVEDILOL 3.125 MG TAB PO SCH (10:00)
[2019-06-03] MEDS: HYDROXYCHLOROQUINE SULFATE 200 MG TAB PO SCH (10:03)
[2019-06-03] MEDS: LEVOFLOXACIN 500 MG TAB PO SCH (10:03)
[2019-06-03] MEDS: SACUBITRIL-VALSARTAN 24mg/26mg TAB PO SCH (10:03)
--- NOTE | 2019-06-03 11:55 | NUR ---
DR. KILLIAN AT BEDSIDE , UPDATING PATIENT ON PLAN OF CARE. MD REQUESTING FOR OXYGEN TO BE OFF, RE-CHECK OXYGEN SATURATIONS IN 20 MINUTES.
--- NOTE | 2019-06-03 12:17 | NUR ---
O2 SATURATION PATIENT'S OXYGEN SATURATION IS AT 96% ON ROOM AIR, NO S/S OF DISTRESS/SOB NOTED/STATED. WILL CONTINUE TO MONITOR PRN.
[2019-06-03 13:00] VITALS: BP 92/43
== END 2019-06-03 14:37 | disposition home or self-care (01) | DRG 286 ==
LOC: TELE-EAST 14:34
PROVIDERS: ADMIT Internal Medicine; ATTEND Internal Medicine
PROC: 4A023N8 Measurement of Cardiac Sampling and Pressure, Bilateral, Percutaneous Approach (ICD-10-PCS; principal; 2019-06-02)
PROC: B2111ZZ Fluoroscopy of Multiple Coronary Arteries using Low Osmolar Contrast (ICD-10-PCS; 2019-06-02)
PROC: B2151ZZ Fluoroscopy of Left Heart using Low Osmolar Contrast (ICD-10-PCS; 2019-06-02)
DX: I50.23 Acute on chronic systolic (congestive) heart failure (principal); J96.00 Acute respiratory failure, unspecified whether with hypoxia or hypercapnia; Z68.42 Body mass index [BMI] 45.0-49.9, adult; J98.11 Atelectasis; N39.0 Urinary tract infection, site not specified; M35.1 Other overlap syndromes; I42.9 Cardiomyopathy, unspecified; M06.9 Rheumatoid arthritis, unspecified; J45.909 Unspecified asthma, uncomplicated; G47.00 Insomnia, unspecified; D64.9 Anemia, unspecified; R73.9 Hyperglycemia, unspecified; I27.20 Pulmonary hypertension, unspecified; I45.10 Unspecified right bundle-branch block; E55.9 Vitamin D deficiency, unspecified; E87.70 Fluid overload, unspecified; E66.01 Morbid (severe) obesity due to excess calories; K21.9 Gastro-esophageal reflux disease without esophagitis; N28.1 Cyst of kidney, acquired; M32.9 Systemic lupus erythematosus, unspecified; J34.0 Abscess, furuncle and carbuncle of nose; Z79.899 Other long term (current) drug therapy; Z79.82 Long term (current) use of aspirin; Z72.89 Other problems related to lifestyle; Z82.49 Family history of ischemic heart disease and other diseases of the circulatory system; Z88.1 Allergy status to other antibiotic agents; Z88.2 Allergy status to sulfonamides
CPT/HCPCS: 36415; 71045; 71250; 78452; 78582; 80048; 80053; 80061; 81001; 82306; 82570; 83036; 83735; 83880; 84156; 84443; 84484; 85025; 85379; 85610; 85652; 85730; 86141; 86160; 86225; 87086; 87804; 93017; 93306; 93460; 94640; 99152; 99153; C1751; G0378; J0153; J0696; J1956; J2250; Q9956

== ENCOUNTER → 2019-06-09 | Outpatient (CLI) | payer BC, MEDICARE ==
[~2019-06-09] MED LIST changes: +ATOR20TA50 PO; +CAR3125T PO; +CHOL20007 OR; +FURO40TA4 PO; +HYDR-4188 OR; +LEVO-28 PO; +POTA10TA51 PO; +SACU1TAB PO
[2019-06-09 12:52] LABS: Basophils # (auto) 0 uL; Basophils % (auto) 0.8 % (0.0-2.0); Eosinophils # (auto) 0.3 uL; Eosinophils % (auto) 5.4 % (0.0-7.0); Hematocrit 41.2 % (36.0-46.0); Hemoglobin 14.1 g/dL (12.2-16.2); Lymphocytes # (auto) 0.9 uL; Lymphocytes % (auto) 15.6 % (10.0-50.0); Mean Corpuscular Hemoglobin 32.7 pg (28.0-32.0); Mean Corpuscular Hgb Conc. 34.2 g/dL (32.0-36.0); Mean Corpuscular Volume 95.6 fL (80.0-100.0); Monocytes # (auto) 0.7 uL; Monocytes % (auto) 12.7 % (0.0-12.0); Neutrophils # (auto) 3.8 uL; Neutrophils % (auto) 65.5 % (37.0-80.0); Nucleated Red Blood Cells % 0.1 %; Platelet Count (auto) 214 10^3/uL (140-450); Red Blood Cells 4.31 10^6/uL (4.0-5.20); Red Cell Distribution Width 14.8 % (11.8-14.3); White Blood Cell 5.8 10^3/uL (4.4-10.8)
[2019-06-09 13:17] LABS: Albumin 3.7 g/dL (3.4-5.0); Calcium 9.2 mg/dL (8.5-10.1); Potassium 4.3 mmol/L (3.5-5.1)
[2019-06-09 13:20] LABS: Bilirubin, Total 0.9 mg/dL (0.2-1.0); Total Protein 6.9 g/dL (6.4-8.2)
== END | disposition home or self-care (01) ==
LOC: LAB 12:16
PROVIDERS: ATTEND Internal Medicine
DX: C17.2 Malignant neoplasm of ileum (principal)
CPT/HCPCS: 36415; 80053; 85025; 85652; 86160

== ENCOUNTER → 2019-07-26 | Outpatient (CLI) | payer BC, MEDICARE | END | disposition home or self-care (01) | LOC: XYW 09:33 | PROVIDERS: ATTEND Internal Medicine | DX: I07.1 Rheumatic tricuspid insufficiency (principal); I42.9 Cardiomyopathy, unspecified; R06.02 Shortness of breath; I48.91 Unspecified atrial fibrillation | CPT/HCPCS: 93306 ==

== ENCOUNTER → 2019-08-01 | Outpatient (CLI) | payer BC ==
[~2019-08-01] MED LIST changes: +CYAN1TAB14 PO; +DOX100T PO; +ERGO1CAP23 PO; +MET25T PO; +POTA1TAB61 PO
[2019-08-01 13:36] LABS: Basophils # (auto) 0 10 ^3/uL (0-0.2); Basophils % (auto) 0.6 % (0.0-2.0); Eosinophils # (auto) 0.2 10 ^3/uL (0-0.8); Eosinophils % (auto) 3.3 % (0.0-7.0); Hematocrit 33.3 % (36.0-46.0); Hemoglobin 11.6 g/dL (12.2-16.2); Lymphocytes # (auto) 0.9 10 ^3/uL (0.4-5.4); Lymphocytes % (auto) 18.1 % (10.0-50.0); Mean Corpuscular Hemoglobin 33.9 pg (28.0-32.0); Mean Corpuscular Hgb Conc. 34.8 g/dL (32.0-36.0); Mean Corpuscular Volume 97.5 fL (80.0-100.0); Monocytes # (auto) 0.4 10 ^3/uL (0-1.3); Monocytes % (auto) 7.5 % (0.0-12.0); Neutrophils # (auto) 3.3 10 ^3/uL (1.6-8.6); Neutrophils % (auto) 70.5 % (37.0-80.0); Nucleated Red Blood Cells % 0.1 %; Platelet Count (auto) 212 10^3/uL (140-450); Red Blood Cells 3.42 10^6/uL (4.0-5.20); Red Cell Distribution Width 16.7 % (11.8-14.3); White Blood Cell 4.7 10^3/uL (4.4-10.8)
[2019-08-01 13:54] LABS: BUN/Creatinine Ratio 29.4; CRP High Sensitivity 0.11 mg/dL (< 0.3); Potassium 3.8 mmol/L (3.5-5.1)
== END | disposition home or self-care (01) ==
LOC: LAB 13:11
PROVIDERS: ATTEND Internal Medicine Rheumatology
DX: M05.79 Rheumatoid arthritis with rheumatoid factor of multiple sites without organ or systems involvement (principal)
CPT/HCPCS: 36415; 80048; 85025; 85652; 86141

== ENCOUNTER → 2019-08-15 | Outpatient (CLI) | payer BC ==
[~2019-08-15] MED LIST changes: -CYAN1TAB14 PO; -DOX100T PO; -ERGO1CAP23 PO; -MET25T PO
[2019-08-15 13:34] LABS: Eosinophils # (auto) 0.2 10 ^3/uL (0-0.8); Hematocrit 33.4 % (36.0-46.0); Monocytes # (auto) 0.4 10 ^3/uL (0-1.3); Nucleated Red Blood Cells % 0.1 %; Red Blood Cells 3.44 10^6/uL (4.0-5.20); White Blood Cell 5.2 10^3/uL (4.4-10.8)
[2019-08-15 13:36] LABS: Basophils # (auto) 0 10 ^3/uL (0-0.2); Basophils % (auto) 0.9 % (0.0-2.0); Eosinophils % (auto) 2.9 % (0.0-7.0); Hemoglobin 11.9 g/dL (12.2-16.2); Mean Corpuscular Hemoglobin 34.5 pg (28.0-32.0); Mean Corpuscular Hgb Conc. 35.5 g/dL (32.0-36.0); Mean Corpuscular Volume 97.2 fL (80.0-100.0); Neutrophils # (auto) 3.6 10 ^3/uL (1.6-8.6); Neutrophils % (auto) 68.2 % (37.0-80.0); Platelet Count (auto) 196 10^3/uL (140-450); Red Cell Distribution Width 15.6 % (11.8-14.3)
[2019-08-15 13:45] LABS: Urine Bacteria NONE SEEN /hpf (None Seen); Urine Blood Negative /uL (Negative); Urine Hyaline Cast FEW /lpf (0 - 2); Urine Mucus FEW (None Seen); Urine Specific Gravity 1.026 (1.001-1.035); Urine WBC 26 /hpf (0 - 5)
[2019-08-15 13:56] LABS: INR 0.98 (0.9-1.15); Partial Thromboplastin Time 26.8 sec (23.64-32.05)
[2019-08-15 13:59] LABS: BUN/Creatinine Ratio 25.5; Calcium 9.1 mg/dL (8.5-10.1)
== END | disposition home or self-care (01) ==
LOC: LAB 13:07
PROVIDERS: ATTEND Specialist
DX: N64.9 Disorder of breast, unspecified (principal); I10 Essential (primary) hypertension; R31.9 Hematuria, unspecified
CPT/HCPCS: 36415; 80048; 81001; 85025; 85610; 85730; 87086

== ENCOUNTER 2019-08-21 06:33 | Inpatient (IN) | payer BC, MEDICARE ==
[~2019-08-21] VITALS: Ht 160 cm; Wt 121.6 kg
[~2019-08-21 06:33] MED LIST changes: -CHOL20007 OR; -HYDR-4188 OR; -LEVO-28 PO; -POTA10TA51 PO
[2019-08-21] MEDS ORDERED: VANCOMYCIN 1GM/250ML 250 ML IV ONE (07:12)
[2019-08-21] MEDS ORDERED: BACITRACIN INJ 50000 UNIT VIAL ONE (07:12)
[2019-08-21] MEDS ORDERED: VANCOMYCIN HCL 1000 MG VL ONE (07:12)
[2019-08-21] MEDS ORDERED: LIDOCAINE 2%HCL (LOCAL ANESTH.) INJ 20ML MDV ONE (07:15)
[2019-08-21] MEDS ORDERED: MIDAZOLAM HCL 1MG/1ML-2 ML VIAL ONE (08:09)
[2019-08-21] MEDS ORDERED: EPINEPHrine HCL 1 MG/10 ML SYRG ONE (08:09)
[2019-08-21] MEDS ORDERED: ATROPINE SULF 1 MG/10ml SYR ONE (08:09)
[2019-08-21] MEDS ORDERED: fentaNYL CITRATE 100 MCG/2 ML VL ONE (08:09)
[2019-08-21] MEDS ORDERED: IODIXANOL 320MG/ML 100ML BTL IV ONE (09:04)
[2019-08-21] MEDS ORDERED: ONDANSETRON HCL 4 MG/2 ML VIAL IV PRN (11:30)
[2019-08-21] MEDS ORDERED: NITROGLYCERIN 0.4 MG SL TAB SL PRN (11:30)
[2019-08-21] MEDS ORDERED: MORPHINE SULF INJ 2 MG/ML SYRINGE 1ML IV PRN (11:30)
[2019-08-21] MEDS ORDERED: METHOTREXATE 2.5 MG TAB PO SCH (11:30)
[2019-08-21] MEDS ORDERED: POTASSIUM CHL 10 Meq TABLET PO PRN (12:00)
[2019-08-21] MEDS: HYDROcodone-ACET 5/325MG TAB PO PRN ×3 (12:27→23:03)
[2019-08-21 14:55] LABS: Basophils # (auto) 0 10 ^3/uL (0-0.2); Basophils % (auto) 0.4 % (0.0-2.0); Eosinophils # (auto) 0.1 10 ^3/uL (0-0.8); Eosinophils % (auto) 2.8 % (0.0-7.0); Hematocrit 32.3 % (36.0-46.0); Hemoglobin 10.6 g/dL (12.2-16.2); Lymphocytes # (auto) 0.7 10 ^3/uL (0.4-5.4); Lymphocytes % (auto) 15.5 % (10.0-50.0); Mean Corpuscular Hemoglobin 32.6 pg (28.0-32.0); Mean Corpuscular Hgb Conc. 32.9 g/dL (32.0-36.0); Monocytes # (auto) 0.2 10 ^3/uL (0-1.3); Monocytes % (auto) 5.5 % (0.0-12.0); Neutrophils # (auto) 3.5 10 ^3/uL (1.6-8.6); Neutrophils % (auto) 75.8 % (37.0-80.0); Platelet Count (auto) 165 10^3/uL (140-450); Red Blood Cells 3.27 10^6/uL (4.0-5.20); Red Cell Distribution Width 15.3 % (11.8-14.3); White Blood Cell 4.5 10^3/uL (4.4-10.8)
--- NOTE | 2019-08-21 15:05 | NUR ---
Telemetry admit from Printing Equipment Mechanic Apprentice SIOBHAN ASHRAF admitted to Telemetry unit after SBAR received. Patient oriented to LORI WASHINGTON, RN primary RN, unit, room, bed, and unit policies regarding patient care and visiting hours. Patient now on continuous telemetry monitoring, tele box # 79 and telemetry reading on arrival to unit is Sinus Rhythm. Patient placed on bedside oxygen, weighed by bedscale and encouraged to call if they need something. All questions and concerns addressed, patient verbalized understanding.
[2019-08-21 15:08] LABS: BUN/Creatinine Ratio 24.1; Calcium 8.2 mg/dL (8.5-10.1); Magnesium 2.5 mg/dL (1.6-2.6); Potassium 4.3 mmol/L (3.5-5.1)
[2019-08-21 15:30] VITALS: BP 110/78
[2019-08-21 16:00] VITALS: BP 110/78
--- NOTE | 2019-08-21 16:30 | NUR ---
Patient reuqesting pain medication for pain 11/30. Administered requested [place]. Will reassess and cont to monitor patient.
[2019-08-21] MEDS: VANCOMYCIN 1GM/250ML 250 ML IV SCH (18:25)
--- NOTE | 2019-08-21 19:26 | NUR ---
Endorsed care to night RN Alex. Patient resting in bed, no distress, sob, or pain noted.
[2019-08-21 21:59] VITALS: BP 98/57
[2019-08-21] MEDS: SACUBITRIL-VALSARTAN 24mg/26mg TAB PO SCH (22:00)
[2019-08-21] MEDS: CARVEDILOL 3.125 MG TAB PO SCH (22:00)
[2019-08-21] MEDS: ATORVASTATIN 20 MG TAB PO SCH (22:50)
[2019-08-21] MEDS: DOXYCYCLINE 100 MG TAB/CAP PO SCH (22:50)
[2019-08-22] VITALS (7 sets, daily range): BP systolic 77–109; BP diastolic 52–69
[2019-08-22 06:34] LABS: Folate (Folic Acid) 13.78 ng/mL (5.38-24)
[2019-08-22] MEDS: VANCOMYCIN 1GM/250ML 250 ML IV SCH (06:40)
--- NOTE | 2019-08-22 07:35 | NUR ---
opening shift note Care of patient assumed from NOC RN. Patient is AOX4 no sings and symptoms of SOB, pain or distress at this time. Bed is in lowest locked position, side rails up x2, call light is within reach. Updated patient on plan of care, patient verbalized understanding. I will continue to monitor Q1HR and PRN.
[2019-08-22] MEDS: SACUBITRIL-VALSARTAN 24mg/26mg TAB PO SCH ×2 (10:00→22:00)
[2019-08-22] MEDS: FUROSEMIDE 40 MG TAB PO SCH (10:00)
[2019-08-22] MEDS: CARVEDILOL 3.125 MG TAB PO SCH ×2 (10:00→22:00)
[2019-08-22] MEDS: HYDROcodone-ACET 5/325MG TAB PO PRN (10:12)
[2019-08-22] MEDS: DOXYCYCLINE 100 MG TAB/CAP PO SCH ×2 (10:12→22:06)
[2019-08-22] MEDS ORDERED: ERGOCALCIFEROL 50,000 UNIT(1.25MG) CAP PO SCH (10:45)
[2019-08-22] MEDS ORDERED: CYANOCOBALAMIN (B-12) 1000 MCG/1 ML VIAL SUBCUT ONE (10:45)
--- NOTE | 2019-08-22 13:52 | NUR ---
Nutrition Assessment Notes Please refer to link for full assessment notes. Est energy needs: 5272-6155 kcals (12-15 kcal/kgBW) Est protein needs: 68-75 gms/day (1.0-1.1 gm/kgAdjBW) Will continue to monitor and reassess prn. Addendum: 08/22/19 at [address] Amended: Links added.
--- NOTE | 2019-08-22 14:55 | NUR ---
Spoke to family Spoke to patients , updated him on patient status and plan of care.
--- NOTE | 2019-08-22 17:26 | NUR ---
Called pharmacy regarding Vit D 50,0000 units. Medication is not in med Pyxis, per pharmacy they will be sending the medication via [facility].
--- NOTE | 2019-08-22 19:25 | NUR ---
closing shift note Care of patient endorsed to NOC LUISITO Sibley. No s/s of distress noted at this time.
--- NOTE | 2019-08-22 19:35 | NUR ---
Opening Shift Note Assumed care of patient, awake and alert. No S/S of distress/SOB. Patient is on 1 liter of oxygen via nasal cannula. Respirations even and unlabored. Dressing to pacemaker insertion site is clean, dry, and intact. Patient reports 6/10 pain to pacemaker insertion site. Will medicate for pain per MD order. Instructed on POC and to call for assist PRN, will continue to monitor for changes Q1hr and PRN.
[2019-08-22] MEDS: ACETAMINOPHEN 325 MG TAB PO PRN (19:37)
--- NOTE | 2019-08-22 19:37 | NUR ---
Tylenol given for pain 6/10 at pacemaker insertion site per patient request. Patient refuses Odonnell. Ice pack placed to left shoulder.
--- NOTE | 2019-08-22 20:37 | NUR ---
Patient reports 6/10 pain at pacemaker insertion site. Patient refuses pain medication at this time. Ice pack remains on left shoulder. Will continue to monitor.
--- NOTE | 2019-08-22 21:50 | NUR ---
Hospitalist paged regarding patient's blood pressure of 77/59. Patient's HR is 114, respiratory rate 18, temperature 97.9 F, pulse oximeter reading is 94% on room air. Patient states she is only dizzy when she gets up. Patient denies dizziness at rest. Patient asymptomatic at rest. Awaiting callback at this time. Will continue to monitor.
[2019-08-22] MEDS: ATORVASTATIN 20 MG TAB PO SCH (22:05)
--- NOTE | 2019-08-22 22:21 | NUR ---
JG Jerome, called back regarding patient's blood pressure of 77/59. New orders received. Addendum: 08/23/19 at 0806 by Maryjo Rodríguez RN Stat BMP, CBC, and lactic acid.
[2019-08-22] MEDS ORDERED: ALBUMIN 5% 250 ML IV ONE (22:30)
[2019-08-22 22:47] LABS: Basophils # (auto) 0 10 ^3/uL (0-0.2); Eosinophils # (auto) 0.2 10 ^3/uL (0-0.8); Hemoglobin 10.9 g/dL (12.2-16.2); Lymphocytes # (auto) 0.4 10 ^3/uL (0.4-5.4); Neutrophils # (auto) 5.6 10 ^3/uL (1.6-8.6); Platelet Count (auto) 143 10^3/uL (140-450); White Blood Cell 6.6 10^3/uL (4.4-10.8)
[2019-08-22 22:48] LABS: Basophils % (auto) 0.1 % (0.0-2.0); Eosinophils % (auto) 3.2 % (0.0-7.0); Hematocrit 30.9 % (36.0-46.0); Mean Corpuscular Hemoglobin 34.6 pg (28.0-32.0); Mean Corpuscular Hgb Conc. 35.2 g/dL (32.0-36.0); Mean Corpuscular Volume 98.4 fL (80.0-100.0); Monocytes # (auto) 0.3 10 ^3/uL (0-1.3); Monocytes % (auto) 5.2 % (0.0-12.0); Neutrophils % (auto) 85.5 % (37.0-80.0); Nucleated Red Blood Cells % 0.1 %; Red Blood Cells 3.14 10^6/uL (4.0-5.20)
--- NOTE | 2019-08-22 22:50 | NUR ---
New order received from JG Jerome, for Albumin 5%. Albumin started at this time per MD order.
[2019-08-22 23:03] LABS: BUN/Creatinine Ratio 17.9; Calcium 8.4 mg/dL (8.5-10.1); Potassium 4.3 mmol/L (3.5-5.1)
[2019-08-23] VITALS (44 sets, daily range): BP systolic 64–116; BP diastolic 35–66
[2019-08-23] MEDS: ACETAMINOPHEN 325 MG TAB PO PRN ×2 (01:40→08:59)
--- NOTE | 2019-08-23 01:40 | NUR ---
Tylenol given for 7/10 pain at pacemaker insertion site per patient request. Patient refuses all other pain medication. Patient states she only wants Tylenol. Ice pack placed on left shoulder.
--- NOTE | 2019-08-23 01:54 | NUR ---
IV removal from right hand due to leakage and bleeding IV DC'd with clean sterile technique, catheter fully intact. Pressure dressing applied to site. Patient tolerated well.
--- NOTE | 2019-08-23 02:22 | NUR ---
Hospitalist paged regarding patient's blood pressure of 88/45. Patient's HR is 108, respiratory rate is 16, temperature is 98.3 F, pulse oximeter reading with 1 liter of oxygen via nasal cannula is 98%. Patient denies dizziness at rest. Patient asymptomatic at rest. Patients states she is dizzy when she gets up. Awaiting callback at this time.
--- NOTE | 2019-08-23 02:40 | NUR ---
Patient has no complaints of pain at this time.
--- NOTE | 2019-08-23 02:47 | NUR ---
JG Jerome, called back regarding patient's blood pressure of 88/45. Per JG Jerome, to be notified when MAP is not below 60. No new orders received. Patient currently asymptomatic.
[2019-08-23] MEDS ORDERED: SODIUM CHLORIDE 0.9% 500 ML IV ONE ×2 (03:00→13:00)
--- NOTE | 2019-08-23 03:08 | NUR ---
Patient's blood pressure reassessed and is 86/42 with MAP of 66. Patient asymptomatic at this time.
--- NOTE | 2019-08-23 03:26 | NUR ---
New order received from JG Jerome, for 500 ml of NS to be given over one hour. Patient's lung sounds clear throughout anterior. NS started at this time.
--- NOTE | 2019-08-23 05:24 | NUR ---
Report given to Ramirez JORGE in ICU. Patient to be transferred to bed 108. Vital signs are BP of 106/54, HR 116, respiratory rate of 20, temperature of 98.3 F, and pulse oximeter reading of 100% on 1 liter of oxygen via nasal cannula. Addendum: 08/23/19 at 0811 by Maryjo Rodríguez RN Correct time is 0542.
--- NOTE | 2019-08-23 05:25 | NUR ---
Hospitalist paged regarding patient's blood pressure of 64/40 MAP of 51. Patient's HR is 108, respiratory rate 18, temperature 97.9 F, pulse oximeter reading on 1 liter of oxygen via nasal cannula is 97%. Patient states she feels tired. Patient denies dizziness at rest. Patient states she feels dizzy when she gets up. Awaiting callback at this time.
--- NOTE | 2019-08-23 05:30 | NUR ---
Callback received from JG Jerome, regarding patient's blood pressure of 64/40 and MAP of 51. New orders received at this time. Stat CBC, CMP, troponin, and transfer to ICU to be started on Levophed.
--- NOTE | 2019-08-23 05:35 | NUR ---
salesperson furniture notified regarding patient to be transferred to ICU. salesperson furniture Clyde to notify housekeeper supervisor.
--- NOTE | 2019-08-23 05:42 | NUR ---
Report given to Ramirez JORGE in ICU. Patient to be transferred to bed 108. Vital signs are BP of 106/54, HR 116, respiratory rate of 20, temperature of 98.3 F, and pulse oximeter reading of 100% on 1 liter of oxygen via nasal cannula.
[2019-08-23] MEDS ORDERED: NOREPINEPHRINE 8 MG/250ML KIT 250 ML IV ONE (06:08)
--- NOTE | 2019-08-23 06:15 | NUR ---
Patient transferred to ICU bed 108 with 1 liter of oxygen via nasal cannula. Patient has no S/S of distress/SOB at this time.
--- NOTE | 2019-08-23 06:30 | NUR ---
Received patient via bed, on 1 L NC, states "I just feel awful". HR V paced low 100s, SBP 90s. New 22 G IV to left hand started, left AC 20 G IV patent. Levophed order received, did not start at this time.
[2019-08-23 07:26] LABS: Basophils # (auto) 0 10 ^3/uL (0-0.2); Basophils % (auto) 0.1 % (0.0-2.0); Eosinophils # (auto) 0.2 10 ^3/uL (0-0.8); Lymphocytes # (auto) 0.4 10 ^3/uL (0.4-5.4); Lymphocytes % (auto) 6.9 % (10.0-50.0); Monocytes # (auto) 0.4 10 ^3/uL (0-1.3); Red Cell Distribution Width 15.1 % (11.8-14.3); White Blood Cell 5.7 10^3/uL (4.4-10.8)
[2019-08-23 07:28] LABS: Hemoglobin 10.6 g/dL (12.2-16.2); Mean Corpuscular Hemoglobin 34.8 pg (28.0-32.0); Mean Corpuscular Hgb Conc. 35.3 g/dL (32.0-36.0); Mean Corpuscular Volume 98.6 fL (80.0-100.0); Monocytes % (auto) 6.6 % (0.0-12.0); Neutrophils # (auto) 4.8 10 ^3/uL (1.6-8.6); Neutrophils % (auto) 83.4 % (37.0-80.0); Platelet Count (auto) 121 10^3/uL (140-450); Red Blood Cells 3.04 10^6/uL (4.0-5.20)
[2019-08-23 07:44] LABS: Albumin 3.4 g/dL (3.4-5.0); Calcium 8.2 mg/dL (8.5-10.1); Potassium 4.3 mmol/L (3.5-5.1)
[2019-08-23 07:49] LABS: BUN/Creatinine Ratio 19.8; Total Protein 5.9 g/dL (6.4-8.2)
--- NOTE | 2019-08-23 08:46 | NUR ---
BIOTRONIKS PAGED: PATIENT COMPLAINING OF A "SHOCKING" SENSATION TO LEFT UPPER CHEST ESPECIALLY WHEN LYING FLAT. PATIENTS NOTED TO HAVE TWITCHING SENSATION. PATIENT NOTED TO BE 100% V PACED WITH RATE AT 104-120'S. CIRCUIT BOARD ASSEMBLER PAGED. AWAITING CALLBACK WITH ETA.
[2019-08-23] MEDS: DOXYCYCLINE 100 MG TAB/CAP PO SCH ×2 (08:59→22:34)
--- NOTE | 2019-08-23 09:00 | NUR ---
[email or web address] CALLED BACK EXT JS DEVELOPER KARL [phone]. PATIENT AWARE.
--- NOTE | 2019-08-23 09:24 | NUR ---
UTILITY WORKER DRIVER DR. DOVER CALLED. UPDATED ON ICU TRANSFER. AWARE PATIENT HAS REMAINED OFF LEVOPHED. AWARE OF ICU SHOCKING PATIENT. NEW ORDERS IN PLACE FOR ECHO. Addendum: 08/23/19 at 1608 by Gypsy Marroquin RN CELINA
[2019-08-23] MEDS: SACUBITRIL-VALSARTAN 24mg/26mg TAB PO SCH ×2 (10:00→22:00)
[2019-08-23] MEDS: FUROSEMIDE 40 MG TAB PO SCH (10:00)
--- NOTE | 2019-08-23 10:00 | NUR ---
DR. DOVER AT BEDSIDE MD UPDATED PATIENTS ON CURRENT STATUS AND PLAN OF CARE. SEE NEW ORDERS.
--- NOTE | 2019-08-23 12:00 | NUR ---
INCENTIVE SPIROMETER PATIENT UNABLE TO GET OOB DUE TO BP FLUCTUATING FROM 80'S-90'S. PATIENT EDUCATED ON IMPORTANCE OF I.S AND HOW TO PERFORM EXERCISE. PATIENT ABLE TO RETURN PROPER DEMONSTRATION REACHING 1500ML DURING INSPIRATION. PT AWARE TO PERFORM EXERCISE AT LEAST 10/HR WHEN AWAKE. PT VERBALIZED UNDERSTANDING. WILL CONTINUE TO ENCOURAGE USE.
--- NOTE | 2019-08-23 12:35 | NUR ---
BIOTRONIK REP AT BEDSIDE
--- NOTE | 2019-08-23 13:00 | NUR ---
BIOTRONIK F/U BIOTRONIK TRAINER MADE ADJUSTMENTS TO AICD SETTINGS. PATIENTS AT THIS TIME NOT NOTICING ANY SHOCKS. WILL CONTINUE TO MONITOR. IF TWITCHING/SHOCKS NOTED BIOTRONIK TO BE RECALLED FOR FURTHER ADJUSTMENTS.
--- NOTE | 2019-08-23 15:40 | NUR ---
PAGED PAGED TO UPDATED ON PATIENTS STATUS AND DETERMINE IF PATIENTS BP REMAINS STABLE IF OK TO DOWNGRADE TO TELE. CALLED BACK AND STATED LATER TONIGHT IF BP STABLE OK TO DOWNGRADE.
--- NOTE | 2019-08-23 16:05 | NUR ---
PATIENTS BP AGAIN RANGING 80'S. PATIENT CONTINUES TO STATE SHE ONLY FEELS TIRED BUT NO SOB, CP OR DIZZINESS. BP TO RECYCLE BP HAS BEEN FLUCTUATING. IF BP PERSISTS IN 80'S MD TO BE REPAGED.
--- NOTE | 2019-08-23 16:32 | NUR ---
Elimination Patient verbalizing she needs to urinate. Patient to remains bed rest at this time due to hypotension and fall precautions. Patient able to assist with turning while immobilizing left arm with sling. Patient used bedpan but urine fell onto peripad. Output inaccurate at this time.
--- NOTE | 2019-08-23 16:51 | NUR ---
MD AWARE PATIENTS CONTINUES TO FLUCTUATE BP. PATIENT NOT ADEQUATELY TAKING PO INTAKE AT THIS TIME. ONLY NOTED TO DRINK WATER WHEN NURSE AT BEDSIDE TO ENCOURAGE. NEW ORDERS IN PLACE.
[2019-08-23] MEDS ORDERED: SODIUM CHLORIDE 0.9% 1,000 ML IV SCH (17:00)
[2019-08-23] MEDS: SODIUM CHLORIDE 0.9% 1,000 ML IV SCH (18:38)
--- NOTE | 2019-08-23 20:00 | NUR ---
PT AAOX4, AFEBRILE. NO SOB OR DISTRESS. POC DISCUSSED, PT STATED UNDERSTANDING. SAFETY PRECAUTIONS IN PLACE. WILL CONTINUE TO MONITOR.
[2019-08-23] MEDS: ATORVASTATIN 20 MG TAB PO SCH (22:34)
--- NOTE | 2019-08-23 23:30 | NUR ---
PT HAD 1 BM HARD SMALL.
[2019-08-24] VITALS (73 sets, daily range): BP systolic 77–148; BP diastolic 32–76
--- NOTE | 2019-08-24 01:30 | NUR ---
LEVOPHED INITIATED, PT SBP 70'S, PT TOLERATING WELL , SAFETY PRECAUTIONS IN PLACE.
[2019-08-24] MEDS: NOREPINEPHRINE 8 MG/250ML KIT 250 ML IV SCH ×2 (01:35→06:57)
[2019-08-24 04:30] LABS: BUN/Creatinine Ratio 21.1; Calcium 8.2 mg/dL (8.5-10.1); Magnesium 2.1 mg/dL (1.6-2.6); Potassium 4.1 mmol/L (3.5-5.1)
[2019-08-24] MEDS: SODIUM CHLORIDE 0.9% 1,000 ML IV SCH ×3 (04:33→23:51)
[2019-08-24] MEDS: ACETAMINOPHEN 325 MG TAB PO PRN (04:33)
--- NOTE | 2019-08-24 05:30 | NUR ---
AM CARE DONE , PT TOLERATED WELL.
[2019-08-24] MEDS: SACUBITRIL-VALSARTAN 24mg/26mg TAB PO SCH ×2 (09:33→22:22)
[2019-08-24] MEDS: FUROSEMIDE 40 MG TAB PO SCH (10:16)
[2019-08-24] MEDS: DOXYCYCLINE 100 MG TAB/CAP PO SCH ×2 (10:16→22:23)
--- NOTE | 2019-08-24 11:44 | NUR ---
assessment Patient is a 68 year old female who is alert and oriented. Patients cognitive abilities are intact. Prior to admission patient lived home with her Cruz and functioned independently. Patient informed me she is able to care for her own ADLs. Per patient she will return home to her prior living arrangements post discharge and family will transport her home. Patient has a cane for home use. Patients PCP is Dr Lea. Patient has no safety issues regarding returning home on discharge. I informed patient her post discharge needs to be determined prior to discharge. I informed patient she has a right to speak to a clinical social worker regarding all care. I informed patient she has a right to participate in any and all discharge planning. Patient has a POA and advanced directive. Patient verbalized understanding and agreed to discharge plan. Addendum: 08/24/19 at 1148 by Laurel LAST Amended: Links added.
--- NOTE | 2019-08-24 12:45 | NUR ---
DR. MCCLURE AT BEDSIDE. SEE MD NOTED AND EMR FOR ANY NEW ORDERS.
[2019-08-24] MEDS ORDERED: diphenhdrAMINE HCL 25 MG CAP PO ONE ×2 (14:15→22:45)
[2019-08-24] MEDS: ATORVASTATIN 20 MG TAB PO SCH (22:23)
--- NOTE | 2019-08-24 22:28 | NUR ---
PT REFUSED ENTRESTO DO B/P BEING LOW .
--- NOTE | 2019-08-24 22:37 | NUR ---
PT C/O ITCHING RE OCCURRING . Miki DOE NOTIFIED , ORDER REC'D.
[2019-08-24] MEDS: METOPROLOL TARTRATE 25 MG TAB PO SCH (23:00)
[2019-08-25] VITALS (27 sets, daily range): BP systolic 82–114; BP diastolic 39–63
[2019-08-25 04:21] LABS: Basophils # (auto) 0 10 ^3/uL (0-0.2); Eosinophils # (auto) 0.2 10 ^3/uL (0-0.8); Eosinophils % (auto) 4.3 % (0.0-7.0); Hemoglobin 9.4 g/dL (12.2-16.2); Lymphocytes # (auto) 0.4 10 ^3/uL (0.4-5.4); Lymphocytes % (auto) 7.5 % (10.0-50.0); Mean Corpuscular Hemoglobin 34.3 pg (28.0-32.0); Mean Corpuscular Hgb Conc. 34.9 g/dL (32.0-36.0); Mean Corpuscular Volume 98.2 fL (80.0-100.0); Monocytes # (auto) 0.3 10 ^3/uL (0-1.3); Monocytes % (auto) 5.7 % (0.0-12.0); Neutrophils % (auto) 82.5 % (37.0-80.0); Nucleated Red Blood Cells % 0.1 %; Platelet Count (auto) 112 10^3/uL (140-450); Red Blood Cells 2.75 10^6/uL (4.0-5.20); Red Cell Distribution Width 14.7 % (11.8-14.3); White Blood Cell 4.9 10^3/uL (4.4-10.8)
[2019-08-25 04:33] LABS: Potassium 3.9 mmol/L (3.5-5.1)
[2019-08-25 04:38] LABS: BUN/Creatinine Ratio 16.7; Calcium 8.6 mg/dL (8.5-10.1)
--- NOTE | 2019-08-25 07:30 | NUR ---
REPORT RECEIVED FROM GENERAL MERCHANDISE SALESPERSON NURSE. PATIENT ASLEEP IN BED AT THIS TIME. RESPIRATIONS EVEN AND UNLABORED. NO SIGNS OF ACUTE DISTRESS NOTED. CALL LIGHT IN REACH, BED IN LOW POSITION. WILL CONTINUE TO MONITOR.
--- NOTE | 2019-08-25 09:46 | NUR ---
UPDATED ON PATIENT STATUS PER PATIENT REQUEST. ALL QUESTIONS AND CONCERNS ADDRESSED AT THIS TIME.
--- NOTE | 2019-08-25 09:55 | NUR ---
UPDATED DAUGHTER AND ON PATIENT STATUS AND OBTAINED HOME MEDICATION LIST. PER FAMILY PATIENT IS UP TO DATE ON VACCINES. ALSO OBTAINED DOUBLE NURSE CONSENT FROM . Addendum: 08/25/19 at 1006 by Carina Ahumada RN WRONG PATIENT
[2019-08-25] MEDS ORDERED: METHOTREXATE 2.5 MG TAB PO SCH (10:00)
[2019-08-25] MEDS: SODIUM CHLORIDE 0.9% 1,000 ML IV SCH (10:00)
[2019-08-25] MEDS: SACUBITRIL-VALSARTAN 24mg/26mg TAB PO SCH (10:00)
[2019-08-25] MEDS: DOXYCYCLINE 100 MG TAB/CAP PO SCH (10:38)
[2019-08-25] MEDS: METOPROLOL TARTRATE 25 MG TAB PO SCH (10:40)
--- NOTE | 2019-08-25 10:58 | NUR ---
REPORT GIVEN TO SIDRA JORGE FROM TELEMETRY FLOOR. PATIENT TO GO TO ROOM 287B TELE BOX 73.
--- NOTE | 2019-08-25 11:45 | NUR ---
RECEIVED PATIENT VIA WHEEL CHAIR SBAR RECEIVED FROM DAMIAN JORGE. PATIENT ORIENTATED TO SIDRA JORGE, UNIT, 287 ROOM, AND B BED. PATIENT EDUCATED ON POC AND TO CALL PRN. WILL CONTINUE TO MONITOR.
--- NOTE | 2019-08-25 11:48 | NUR ---
PATIENT TRANSFERRED TO ROOM 287B VIA WHEELCHAIR CONNECTED TO TELEMETRY BOX 73. ASSISTED TO TOILET THEN BED. GIVEN CALL LIGHT GIVEN TO PATIENT AND INSTRUCTED TO CALL BEFORE AMBULATING. PATIENT VERBALIZED UNDERSTANDING. PRIMARY NURSE AT BEDSIDE TO SEE PATIENT. Addendum: 08/25/19 at 1159 by Carina Ahumada RN BED IN LOW POSITION. NO SIGNS OF ACUTE DISTRESS NOTED.
[2019-08-25] MEDS ORDERED: MET25T PO (13:22)
[2019-08-25] MEDS ORDERED: ERGO1CAP23 PO (13:24)
[2019-08-25] MEDS ORDERED: CYAN1TAB14 PO (13:24)
[2019-08-25] MEDS ORDERED: DOX100T PO (13:24)
--- NOTE | 2019-08-25 16:15 | NUR ---
Discharge instructions given as ordered. Encourage to follow up with PMD as instructed. All questions and concerns addressed. Patient verbalized understanding. Medication reconciliation form completed and copy given to patient. No home medications held in Pharmacy and none returned to patient, and no needed vaccines given. IV removed with catheter intact, pressure dressing applied. Telemetry unit returned to ICU. Patient taken to vehicle via wheelchair with all personal belongings, accompanied by staff. Family member at front entrance waiting to transport patient home. No distress noted at time of departure.
== END 2019-08-25 17:49 | disposition home or self-care (01) | DRG 226 ==
LOC: CATH 06:33 → TELE-WESTW 15:07 → ICU WEST 08-23 06:10 → WEST WING 08-25 11:28 → TELE-WESTW 08-25 12:08
PROVIDERS: ADMIT Internal Medicine; ATTEND Internal Medicine
PROC: 0JH609Z Insertion of Cardiac Resynchronization Defibrillator Pulse Generator into Chest Subcutaneous Tissue and Fascia, Open Approach (ICD-10-PCS; principal; 2019-08-21)
PROC: 02HK3KZ Insertion of Defibrillator Lead into Right Ventricle, Percutaneous Approach (ICD-10-PCS; 2019-08-21)
PROC: 02H63KZ Insertion of Defibrillator Lead into Right Atrium, Percutaneous Approach (ICD-10-PCS; 2019-08-21)
DX: I11.0 Hypertensive heart disease with heart failure (principal); R57.0 Cardiogenic shock; Z68.42 Body mass index [BMI] 45.0-49.9, adult; I50.23 Acute on chronic systolic (congestive) heart failure; I42.8 Other cardiomyopathies; E66.01 Morbid (severe) obesity due to excess calories; Z88.2 Allergy status to sulfonamides; Z88.8 Allergy status to other drugs, medicaments and biological substances; Z82.49 Family history of ischemic heart disease and other diseases of the circulatory system; Z86.73 Personal history of transient ischemic attack (TIA), and cerebral infarction without residual deficits
CPT/HCPCS: 36415; 71045; 80048; 80053; 82306; 82607; 82746; 83036; 83605; 83735; 83880; 84484; 85025; 87081; 93005; 93306; 99152; 99153; C1769; G0378; J2250; Q9967

== ENCOUNTER → 2019-09-25 | Outpatient (CLI) | payer MEDICARE, OTHER ==
[~2019-09-25] MED LIST changes: -CAR3125T PO; +CYAN1TAB14 PO; +DOX100T PO; +ERGO1CAP23 PO; +MET25T PO; +METH2.5T PO; -METH2.5T3 PO; -SACU1TAB PO
[2019-09-25 10:48] LABS: Basophils # (auto) 0 10 ^3/uL (0-0.2); Eosinophils # (auto) 0.2 10 ^3/uL (0-0.8); Eosinophils % (auto) 5.4 % (0.0-7.0); Hematocrit 33.4 % (36.0-46.0); Hemoglobin 11.4 g/dL (12.2-16.2); Lymphocytes # (auto) 0.9 10 ^3/uL (0.4-5.4); Lymphocytes % (auto) 21.5 % (10.0-50.0); Mean Corpuscular Hemoglobin 33.7 pg (28.0-32.0); Mean Corpuscular Hgb Conc. 34.3 g/dL (32.0-36.0); Mean Corpuscular Volume 98.3 fL (80.0-100.0); Monocytes # (auto) 0.3 10 ^3/uL (0-1.3); Monocytes % (auto) 6.8 % (0.0-12.0); Neutrophils # (auto) 2.8 10 ^3/uL (1.6-8.6); Neutrophils % (auto) 65.3 % (37.0-80.0); Platelet Count (auto) 179 10^3/uL (140-450); Red Cell Distribution Width 15.4 % (11.8-14.3); White Blood Cell 4.3 10^3/uL (4.4-10.8)
[2019-09-25 10:51] LABS: Urine Bacteria NONE SEEN /hpf (None Seen); Urine Blood Negative /uL (Negative); Urine Mucus FEW (None Seen); Urine Specific Gravity 1.023 (1.001-1.035); Urine WBC 5 /hpf (0 - 5)
[2019-09-25 11:24] LABS: Potassium 4.2 mmol/L (3.5-5.1)
[2019-09-25 11:32] LABS: Albumin 3.6 g/dL (3.4-5.0); Bilirubin, Direct 0.2 mg/dL (0-0.2); Bilirubin, Total 0.9 mg/dL (0.2-1.0); Calcium 8.9 mg/dL (8.5-10.1)
== END | disposition home or self-care (01) ==
LOC: LAB 10:23
PROVIDERS: ATTEND Specialist
DX: I10 Essential (primary) hypertension (principal); R94.5 Abnormal results of liver function studies; D64.9 Anemia, unspecified; E78.5 Hyperlipidemia, unspecified; E11.9 Type 2 diabetes mellitus without complications; E03.9 Hypothyroidism, unspecified
CPT/HCPCS: 36415; 80053; 80061; 80076; 81001; 83036; 84443; 85025

== ENCOUNTER → 2019-12-09 | Outpatient (CLI) | payer OTHER ==
[2019-12-09 09:30] LABS: Basophils # (auto) 0.1 10 ^3/uL (0-0.2); Basophils % (auto) 1.2 % (0.0-2.0); Eosinophils # (auto) 0.1 10 ^3/uL (0-0.8); Eosinophils % (auto) 2.8 % (0.0-7.0); Hematocrit 35.1 % (36.0-46.0); Hemoglobin 12.2 g/dL (12.2-16.2); Lymphocytes % (auto) 23.1 % (10.0-50.0); Mean Corpuscular Hemoglobin 33.5 pg (28.0-32.0); Mean Corpuscular Hgb Conc. 34.7 g/dL (32.0-36.0); Mean Corpuscular Volume 96.7 fL (80.0-100.0); Monocytes # (auto) 0.3 10 ^3/uL (0-1.3); Monocytes % (auto) 6.1 % (0.0-12.0); Neutrophils # (auto) 2.8 10 ^3/uL (1.6-8.6); Neutrophils % (auto) 66.8 % (37.0-80.0); Platelet Count (auto) 188 10^3/uL (140-450); Red Blood Cells 3.63 10^6/uL (4.0-5.20); Red Cell Distribution Width 15.5 % (11.8-14.3); White Blood Cell 4.2 10^3/uL (4.4-10.8)
[2019-12-09 09:55] LABS: Calcium 9.1 mg/dL (8.5-10.1); Potassium 4.1 mmol/L (3.5-5.1)
[2019-12-09 10:02] LABS: Albumin 3.8 g/dL (3.4-5.0); BUN/Creatinine Ratio 22.6; Bilirubin, Direct 0.3 mg/dL (0-0.2); Bilirubin, Total 0.8 mg/dL (0.2-1.0); CRP High Sensitivity 0.06 mg/dL (< 0.3); Total Protein 7.1 g/dL (6.4-8.2)
== END | disposition home or self-care (01) ==
LOC: LAB 09:04
PROVIDERS: ATTEND Specialist
DX: I10 Essential (primary) hypertension (principal); R94.5 Abnormal results of liver function studies; D64.9 Anemia, unspecified; E78.5 Hyperlipidemia, unspecified; E03.9 Hypothyroidism, unspecified
CPT/HCPCS: 36415; 80053; 80061; 80076; 83036; 85025; 85652; 86141

== ENCOUNTER → 2020-03-07 | Outpatient (CLI) | payer OTHER ==
[2020-03-07 10:36] LABS: Basophils # (auto) 0 10 ^3/uL (0-0.2); Basophils % (auto) 0.8 % (0.0-2.0); Eosinophils # (auto) 0.1 10 ^3/uL (0-0.8); Eosinophils % (auto) 2.7 % (0.0-7.0); Hematocrit 35.8 % (36.0-46.0); Hemoglobin 12.6 g/dL (12.2-16.2); Lymphocytes # (auto) 0.9 10 ^3/uL (0.4-5.4); Lymphocytes % (auto) 22.9 % (10.0-50.0); Mean Corpuscular Hgb Conc. 35.1 g/dL (32.0-36.0); Monocytes # (auto) 0.2 10 ^3/uL (0-1.3); Neutrophils # (auto) 2.8 10 ^3/uL (1.6-8.6); Neutrophils % (auto) 68.6 % (37.0-80.0); Nucleated Red Blood Cells % 0.3 %; Platelet Count (auto) 157 10^3/uL (140-450); Red Blood Cells 3.69 10^6/uL (4.0-5.20); Red Cell Distribution Width 15.1 % (11.8-14.3)
[2020-03-07 11:05] LABS: Calcium 9.1 mg/dL (8.5-10.1); Potassium 4.1 mmol/L (3.5-5.1)
[2020-03-07 11:09] LABS: BUN/Creatinine Ratio 27.5; CRP High Sensitivity 0.18 mg/dL (< 0.3); Total Protein 7.2 g/dL (6.4-8.2)
== END | disposition home or self-care (01) ==
LOC: LAB 10:07
PROVIDERS: ATTEND Internal Medicine Rheumatology
DX: M32.10 Systemic lupus erythematosus, organ or system involvement unspecified (principal)
CPT/HCPCS: 36415; 80053; 85025; 85613; 85652; 85670; 85705; 85732; 86141; 86147

== ENCOUNTER → 2020-06-11 | Outpatient (CLI) | payer OTHER ==
[2020-06-11 11:53] LABS: Basophils # (auto) 0 10 ^3/uL (0-0.2); Basophils % (auto) 0.8 % (0.0-2.0); Eosinophils # (auto) 0.1 10 ^3/uL (0-0.8); Hematocrit 35.3 % (36.0-46.0); Hemoglobin 12.4 g/dL (12.2-16.2); Lymphocytes # (auto) 0.7 10 ^3/uL (0.4-5.4); Lymphocytes % (auto) 15.3 % (10.0-50.0); Mean Corpuscular Hemoglobin 34.8 pg (28.0-32.0); Mean Corpuscular Hgb Conc. 35.1 g/dL (32.0-36.0); Mean Corpuscular Volume 99.1 fL (80.0-100.0); Monocytes # (auto) 0.5 10 ^3/uL (0-1.3); Monocytes % (auto) 9.5 % (0.0-12.0); Neutrophils # (auto) 3.4 10 ^3/uL (1.6-8.6); Neutrophils % (auto) 71.4 % (37.0-80.0); Nucleated Red Blood Cells % 0.2 %; Platelet Count (auto) 159 10^3/uL (140-450); Red Blood Cells 3.56 10^6/uL (4.0-5.20); Red Cell Distribution Width 16.4 % (11.8-14.3); White Blood Cell 4.8 10^3/uL (4.4-10.8)
[2020-06-11 13:06] LABS: Calcium 8.7 mg/dL (8.5-10.1)
[2020-06-11 13:11] LABS: Albumin 3.8 g/dL (3.4-5.0); BUN/Creatinine Ratio 25.6; Bilirubin, Total 0.8 mg/dL (0.2-1.0); Total Protein 7.2 g/dL (6.4-8.2)
== END | disposition home or self-care (01) ==
LOC: LAB 11:31
PROVIDERS: ATTEND Internal Medicine Rheumatology
DX: M05.79 Rheumatoid arthritis with rheumatoid factor of multiple sites without organ or systems involvement (principal)
CPT/HCPCS: 36415; 80053; 85025

== ENCOUNTER → 2020-07-15 | Outpatient (CLI) | payer OTHER ==
[2020-07-15 09:10] LABS: Basophils # (auto) 0.1 10 ^3/uL (0-0.2); Eosinophils # (auto) 0.4 10 ^3/uL (0-0.8); Hemoglobin 12.2 g/dL (12.2-16.2); Lymphocytes # (auto) 0.9 10 ^3/uL (0.4-5.4); Monocytes # (auto) 0.6 10 ^3/uL (0-1.3); Monocytes % (auto) 10.7 % (0.0-12.0); Neutrophils # (auto) 3.4 10 ^3/uL (1.6-8.6); Nucleated Red Blood Cells % 0.1 %; Red Cell Distribution Width 15.8 % (11.8-14.3)
[2020-07-15 09:12] LABS: Basophils % (auto) 1.1 % (0.0-2.0); Eosinophils % (auto) 6.8 % (0.0-7.0); Hematocrit 34.6 % (36.0-46.0); Lymphocytes % (auto) 16.8 % (10.0-50.0); Mean Corpuscular Hgb Conc. 35.3 g/dL (32.0-36.0); Mean Corpuscular Volume 99.3 fL (80.0-100.0); Neutrophils % (auto) 64.6 % (37.0-80.0); Platelet Count (auto) 145 10^3/uL (140-450); Red Blood Cells 3.48 10^6/uL (4.0-5.20); White Blood Cell 5.3 10^3/uL (4.4-10.8)
[2020-07-15 09:46] LABS: Albumin 3.8 g/dL (3.4-5.0); Calcium 9.2 mg/dL (8.5-10.1); Potassium 4.2 mmol/L (3.5-5.1)
[2020-07-15 09:50] LABS: BUN/Creatinine Ratio 21.4; Bilirubin, Direct 0.2 mg/dL (0-0.2); Bilirubin, Total 0.8 mg/dL (0.2-1.0); Total Protein 7.2 g/dL (6.4-8.2)
== END | disposition home or self-care (01) ==
LOC: LAB 08:50
PROVIDERS: ATTEND Specialist
DX: I10 Essential (primary) hypertension (principal); E11.9 Type 2 diabetes mellitus without complications; R94.5 Abnormal results of liver function studies; D64.9 Anemia, unspecified; E78.5 Hyperlipidemia, unspecified; E03.9 Hypothyroidism, unspecified; Z79.899 Other long term (current) drug therapy
CPT/HCPCS: 36415; 80048; 80061; 80076; 80162; 83036; 84443; 85025

== ENCOUNTER → 2020-09-12 | Outpatient (CLI) | payer OTHER ==
[2020-09-12 11:50] LABS: Basophils # (auto) 0 10 ^3/uL (0-0.2); Basophils % (auto) 0.7 % (0.0-2.0); Eosinophils # (auto) 0.1 10 ^3/uL (0-0.8); Eosinophils % (auto) 2.5 % (0.0-7.0); Hemoglobin 12.6 g/dL (12.2-16.2); Lymphocytes # (auto) 1.1 10 ^3/uL (0.4-5.4); Lymphocytes % (auto) 22.3 % (10.0-50.0); Mean Corpuscular Hemoglobin 34.5 pg (28.0-32.0); Mean Corpuscular Hgb Conc. 35.1 g/dL (32.0-36.0); Mean Corpuscular Volume 98.3 fL (80.0-100.0); Monocytes # (auto) 0.2 10 ^3/uL (0-1.3); Monocytes % (auto) 5.2 % (0.0-12.0); Neutrophils # (auto) 3.3 10 ^3/uL (1.6-8.6); Neutrophils % (auto) 69.3 % (37.0-80.0); Nucleated Red Blood Cells % 0.1 %; Platelet Count (auto) 177 10^3/uL (140-450); Red Blood Cells 3.66 10^6/uL (4.0-5.20); Red Cell Distribution Width 15.4 % (11.8-14.3); White Blood Cell 4.7 10^3/uL (4.4-10.8)
[2020-09-12 13:29] LABS: Albumin 3.6 g/dL (3.4-5.0); Calcium 8.9 mg/dL (8.5-10.1); Potassium 4.2 mmol/L (3.5-5.1)
[2020-09-12 13:34] LABS: BUN/Creatinine Ratio 22.6; Bilirubin, Total 0.9 mg/dL (0.2-1.0); CRP High Sensitivity 0.33 mg/dL (< 0.3); Total Protein 6.8 g/dL (6.4-8.2)
== END | disposition home or self-care (01) ==
LOC: LAB 11:15
PROVIDERS: ATTEND Internal Medicine
DX: I11.0 Hypertensive heart disease with heart failure (principal); I50.22 Chronic systolic (congestive) heart failure; M32.9 Systemic lupus erythematosus, unspecified; M05.79 Rheumatoid arthritis with rheumatoid factor of multiple sites without organ or systems involvement
CPT/HCPCS: 36415; 80053; 80061; 82306; 84443; 85025; 85652; 86141

== ENCOUNTER 2020-09-26 13:57 | Observation (INO) | payer OTHER ==
[~2020-09-26] VITALS: Ht 30.5 cm; Wt 54.4 kg
[2020-09-26] MEDS ORDERED: ALUM & MAG HYDROX-SIMETH LIQ(MAALOX) 30 ML PO PRN (14:45)
[2020-09-26] MEDS ORDERED: HYDROcodone-ACET 5/325MG TAB PO PRN (14:45)
[2020-09-26] MEDS ORDERED: ONDANSETRON HCL 4 MG/2 ML VIAL IV PRN (14:45)
[2020-09-26] MEDS ORDERED: HYDROmorphone HCL 2 MG/ML VL IV PRN (14:45)
[2020-09-26] MEDS ORDERED: TEMAZEPAM 15 MG CAP PO PRN (14:45)
[2020-09-26] MEDS ORDERED: NITROGLYCERIN 0.4 MG SL TAB SL PRN (14:45)
[2020-09-26] MEDS ORDERED: MORPHINE SULFATE INJECTION 2 MG/ML SYRG IV PRN (14:45)
[2020-09-26] MEDS ORDERED: ACETAMINOPHEN 325 MG TAB PO PRN (14:45)
[2020-09-26 15:00] VITALS: BP 117/68
[2020-09-26 16:35] LABS: Basophils # (auto) 0 10 ^3/uL (0-0.2); Lymphocytes # (auto) 1.2 10 ^3/uL (0.4-5.4); Monocytes # (auto) 0.4 10 ^3/uL (0-1.3)
[2020-09-26 16:37] LABS: Basophils % (auto) 0.7 % (0.0-2.0); Eosinophils # (auto) 0.2 10 ^3/uL (0-0.8); Eosinophils % (auto) 3.1 % (0.0-7.0); Hematocrit 33.8 % (36.0-46.0); Hemoglobin 12.1 g/dL (12.2-16.2); Lymphocytes % (auto) 21.8 % (10.0-50.0); Mean Corpuscular Hgb Conc. 35.7 g/dL (32.0-36.0); Monocytes % (auto) 7.8 % (0.0-12.0); Neutrophils # (auto) 3.7 10 ^3/uL (1.6-8.6); Neutrophils % (auto) 66.6 % (37.0-80.0); Nucleated Red Blood Cells % 0.1 %; Red Blood Cells 3.45 10^6/uL (4.0-5.20); Red Cell Distribution Width 15.2 % (11.8-14.3); White Blood Cell 5.5 10^3/uL (4.4-10.8)
[2020-09-26 16:51] LABS: INR 0.99 (0.9-1.15); Partial Thromboplastin Time 25.8 sec (23.0-31.2)
[2020-09-26 17:00] VITALS: BP 117/68
[2020-09-26 17:01] LABS: Albumin 3.6 g/dL (3.4-5.0); Calcium 8.5 mg/dL (8.5-10.1); Magnesium 2.6 mg/dL (1.6-2.6); Potassium 3.9 mmol/L (3.5-5.1)
[2020-09-26 17:06] LABS: BUN/Creatinine Ratio 24.5; Bilirubin, Total 0.7 mg/dL (0.2-1.0); Total Protein 6.7 g/dL (6.4-8.2)
[2020-09-26] MEDS ORDERED: FURO20TA3 PO (17:31)
[2020-09-26] MEDS ORDERED: DIGO0.12 PO (17:34)
[2020-09-26] MEDS ORDERED: MET25T PO (17:35)
[2020-09-26] MEDS ORDERED: FOLI1TAB6 PO (17:36)
[2020-09-26] MEDS ORDERED: ALBU0.084 NEB (17:39)
[2020-09-26] MEDS: FUROSEMIDE 40 MG/4 ML VIAL IV SCH (17:53)
[2020-09-26] MEDS ORDERED: ERGOCALCIFEROL 50,000 UNIT(1.25MG) CAP PO SCH (18:00)
[2020-09-26] MEDS: SODIUM CHLOR 0.9% PF (SALINE LOCK) 10ML VIAL/SYR IV SCH (21:30)
[2020-09-26 22:00] VITALS: BP 127/75
[2020-09-26] MEDS ORDERED: SACUBITRIL-VALSARTAN 24mg/26mg TAB PO SCH (22:00)
[2020-09-26] MEDS ORDERED: CARVEDILOL 3.125 MG TAB PO SCH (22:00)
[2020-09-26 23:35] LABS: Urine Bacteria FEW /hpf (None Seen); Urine Blood Negative /uL (Negative); Urine Specific Gravity 1.005 (1.001-1.035); Urine WBC 5 /hpf (0 - 5)
[2020-09-27 05:00] VITALS: BP 121/53
[2020-09-27 05:39] LABS: Calcium 8.4 mg/dL (8.5-10.1); Potassium 3.9 mmol/L (3.5-5.1)
[2020-09-27 05:41] LABS: BUN/Creatinine Ratio 24.7
[2020-09-27] MEDS: SODIUM CHLOR 0.9% PF (SALINE LOCK) 10ML VIAL/SYR IV SCH ×2 (06:00→14:29)
[2020-09-27] MEDS: FUROSEMIDE 40 MG/4 ML VIAL IV SCH (06:00)
[2020-09-27 08:46] VITALS: BP 110/48
[2020-09-27] MEDS ORDERED: CARVEDILOL 3.125 MG TAB PO SCH (10:00)
[2020-09-27] MEDS ORDERED: DIGOXIN 0.125 MG TAB PO SCH (10:00)
[2020-09-27] MEDS: ALBUTEROL SULF 2.5 MG/0.5ML(0.5%) NEB SOLN NEB SCH ×2 (12:00→14:56)
[2020-09-27 13:44] VITALS: BP 110/48
[2020-09-27 14:07] VITALS: BP 110/48
[2020-09-27] MEDS ORDERED: FUROSEMIDE 40 MG/4 ML VIAL IV ONE (15:30)
[2020-09-27 16:46] VITALS: BP 97/57
[2021-02-18] MEDS ORDERED: CAR3125T PO (09:55)
[2021-02-18] MEDS ORDERED: FLUT1INH6 IN (09:55)
[2021-02-18] MEDS ORDERED: SACU1TAB PO (09:55)
== END 2020-09-27 17:45 | disposition home or self-care (01) ==
LOC: TELE 13:57 → INTOOBSV 13:57 → TELE-WESTW 14:01
PROVIDERS: ADMIT Internal Medicine; ATTEND Internal Medicine
DX: I11.0 Hypertensive heart disease with heart failure (principal); I50.23 Acute on chronic systolic (congestive) heart failure; I42.8 Other cardiomyopathies; J81.0 Acute pulmonary edema; E55.9 Vitamin D deficiency, unspecified; E66.01 Morbid (severe) obesity due to excess calories; R42 Dizziness and giddiness; M06.9 Rheumatoid arthritis, unspecified; M32.9 Systemic lupus erythematosus, unspecified; Z79.82 Long term (current) use of aspirin; Z79.899 Other long term (current) drug therapy; Z95.810 Presence of automatic (implantable) cardiac defibrillator
CPT/HCPCS: 36415; 71045; 80048; 80053; 80162; 81001; 82306; 82607; 83735; 83880; 85025; 85610; 85730; 87426; 93005; 93306; 94640; 96374; 96376; G0378; J1940

== ENCOUNTER → 2020-11-27 | Outpatient (CLI) | payer OTHER, BC, MEDICARE ==
[~2020-11-27] MED LIST changes: +ALBU0.084 NEB; -ATOR20TA50 PO; +DIGO0.12 PO; -DOX100T PO; -ERGO1CAP23 PO; +FOLI1TAB6 PO; +FURO20TA3 PO; -FURO40TA4 PO; -HYDR-4188 PO
[2020-11-27 10:03] LABS: Basophils # (auto) 0.1 10 ^3/uL (0-0.2); Eosinophils # (auto) 0.2 10 ^3/uL (0-0.8); Hemoglobin 12.7 g/dL (12.2-16.2); Lymphocytes # (auto) 1.2 10 ^3/uL (0.4-5.4); Nucleated Red Blood Cells % 0.1 %; Platelet Count (auto) 169 10^3/uL (140-450)
[2020-11-27 10:05] LABS: Basophils % (auto) 1.3 % (0.0-2.0); Eosinophils % (auto) 3.4 % (0.0-7.0); Hematocrit 36.1 % (36.0-46.0); Lymphocytes % (auto) 24.1 % (10.0-50.0); Mean Corpuscular Hgb Conc. 35.2 g/dL (32.0-36.0); Mean Corpuscular Volume 99.5 fL (80.0-100.0); Monocytes # (auto) 0.5 10 ^3/uL (0-1.3); Monocytes % (auto) 10.1 % (0.0-12.0); Neutrophils % (auto) 61.1 % (37.0-80.0); Red Blood Cells 3.63 10^6/uL (4.0-5.20); Red Cell Distribution Width 15.7 % (11.8-14.3)
[2020-11-27 10:32] LABS: Potassium 4.3 mmol/L (3.5-5.1)
[2020-11-27 10:38] LABS: Albumin 3.6 g/dL (3.4-5.0); BUN/Creatinine Ratio 20.4; CRP High Sensitivity 0.4 mg/dL (< 0.3); Calcium 8.6 mg/dL (8.5-10.1)
== END | disposition home or self-care (01) ==
LOC: LAB 09:38
PROVIDERS: ATTEND Internal Medicine Rheumatology
DX: M05.79 Rheumatoid arthritis with rheumatoid factor of multiple sites without organ or systems involvement (principal)
CPT/HCPCS: 36415; 80053; 85025; 85049; 85652; 86141

== ENCOUNTER 2020-12-14 09:21 | Emergency (ER) | payer BC, MEDICARE, OTHER ==
[~2020-12-14] VITALS: Ht 160 cm; Wt 104.8 kg
[2020-12-14 10:31] LABS: Basophils # (auto) 0.1 10 ^3/uL (0-0.2); Eosinophils # (auto) 0.2 10 ^3/uL (0-0.8); Lymphocytes # (auto) 1.2 10 ^3/uL (0.4-5.4); Neutrophils # (auto) 3.9 10 ^3/uL (1.6-8.6)
[2020-12-14 10:33] LABS: Basophils % (auto) 1.2 % (0.0-2.0); Eosinophils % (auto) 3.4 % (0.0-7.0); Hematocrit 34.1 % (36.0-46.0); Hemoglobin 11.9 g/dL (12.2-16.2); Mean Corpuscular Hemoglobin 34.9 pg (28.0-32.0); Mean Corpuscular Volume 99.5 fL (80.0-100.0); Monocytes # (auto) 0.4 10 ^3/uL (0-1.3); Monocytes % (auto) 7.5 % (0.0-12.0); Neutrophils % (auto) 66.9 % (37.0-80.0); Red Blood Cells 3.42 10^6/uL (4.0-5.20); Red Cell Distribution Width 15.5 % (11.8-14.3); White Blood Cell 5.8 10^3/uL (4.4-10.8)
[2020-12-14 10:51] LABS: INR 0.97 (0.9-1.15); Partial Thromboplastin Time 24.7 sec (23.0-31.2)
[2020-12-14 11:20] LABS: Albumin 3.4 g/dL (3.4-5.0); Calcium 8.8 mg/dL (8.5-10.1); Potassium 4.3 mmol/L (3.5-5.1)
[2020-12-14 11:23] LABS: Bilirubin, Total 0.8 mg/dL (0.2-1.0); Total Protein 6.6 g/dL (6.4-8.2)
[2020-12-14] MEDS ORDERED: SODIUM CHLORIDE 0.9% 1,000 ML IV ONE (12:00)
[2020-12-14 12:07] LABS: BUN/Creatinine Ratio 26.3
[2020-12-14 14:00] VITALS: BP 134/70
[2021-02-18] MEDS ORDERED: SACU1TAB PO (09:55)
[2021-02-18] MEDS ORDERED: FLUT1INH6 IN (09:55)
[2021-02-18] MEDS ORDERED: CAR3125T PO (09:55)
== END 2020-12-14 14:18 | disposition home or self-care (01) ==
LOC: ER 09:21
DX: R10.84 Generalized abdominal pain (principal); D64.9 Anemia, unspecified; R73.9 Hyperglycemia, unspecified; I11.0 Hypertensive heart disease with heart failure; I50.9 Heart failure, unspecified; J45.909 Unspecified asthma, uncomplicated; Z88.1 Allergy status to other antibiotic agents; Z88.2 Allergy status to sulfonamides; Z91.018 Allergy to other foods; Z79.82 Long term (current) use of aspirin; Z79.899 Other long term (current) drug therapy; Z98.890 Other specified postprocedural states
CPT/HCPCS: 36415; 74176; 80053; 83690; 83880; 85025; 85610; 85730; 96360; 96361; 99284; J7030

== ENCOUNTER → 2020-12-20 | Outpatient (CLI) | payer OTHER ==
[2020-12-20 11:07] LABS: Eosinophils # (auto) 0.1 10 ^3/uL (0-0.8); Neutrophils # (auto) 3.3 10 ^3/uL (1.6-8.6); White Blood Cell 4.8 10^3/uL (4.4-10.8)
[2020-12-20 11:10] LABS: Basophils # (auto) 0.1 10 ^3/uL (0-0.2); Basophils % (auto) 1.1 % (0.0-2.0); Lymphocytes % (auto) 20.2 % (10.0-50.0); Mean Corpuscular Hemoglobin 35.7 pg (28.0-32.0); Mean Corpuscular Hgb Conc. 36.4 g/dL (32.0-36.0); Mean Corpuscular Volume 98.1 fL (80.0-100.0); Monocytes # (auto) 0.3 10 ^3/uL (0-1.3); Monocytes % (auto) 6.9 % (0.0-12.0); Neutrophils % (auto) 68.8 % (37.0-80.0); Nucleated Red Blood Cells % 0.2 %; Red Blood Cells 3.36 10^6/uL (4.0-5.20); Red Cell Distribution Width 15.4 % (11.8-14.3)
[2020-12-20 11:50] LABS: Albumin 3.5 g/dL (3.4-5.0); BUN/Creatinine Ratio 19.8; Bilirubin, Total 0.8 mg/dL (0.2-1.0); Calcium 8.7 mg/dL (8.5-10.1); Total Protein 6.9 g/dL (6.4-8.2)
== END | disposition home or self-care (01) ==
LOC: LAB 10:37
PROVIDERS: ATTEND Internal Medicine
DX: I42.9 Cardiomyopathy, unspecified (principal)
CPT/HCPCS: 36415; 80053; 82274; 82378; 85025; 86300; 86301; 86304

== ENCOUNTER 2021-02-21 07:23 | Day surgery (SDC) | payer OTHER ==
[2021-02-18 10:48] LABS: Basophils # (auto) 0 10 ^3/uL (0-0.2); Eosinophils # (auto) 0.1 10 ^3/uL (0-0.8); Hemoglobin 12.3 g/dL (12.2-16.2); Lymphocytes # (auto) 0.7 10 ^3/uL (0.4-5.4); Mean Corpuscular Hemoglobin 34.4 pg (28.0-32.0); Monocytes # (auto) 0.3 10 ^3/uL (0-1.3); Neutrophils # (auto) 3.2 10 ^3/uL (1.6-8.6); Nucleated Red Blood Cells % 0.2 %; Red Cell Distribution Width 15.4 % (11.8-14.3)
[2021-02-18 10:50] LABS: Basophils % (auto) 0.8 % (0.0-2.0); Eosinophils % (auto) 2.2 % (0.0-7.0); Hematocrit 35.9 % (36.0-46.0); Lymphocytes % (auto) 16.6 % (10.0-50.0); Mean Corpuscular Hgb Conc. 34.3 g/dL (32.0-36.0); Mean Corpuscular Volume 100.4 fL (80.0-100.0); Neutrophils % (auto) 73.4 % (37.0-80.0); Red Blood Cells 3.58 10^6/uL (4.0-5.20); White Blood Cell 4.4 10^3/uL (4.4-10.8)
[2021-02-18 10:52] LABS: Urine Bacteria FEW /hpf (None Seen); Urine Blood Negative /uL (Negative); Urine Hyaline Cast FEW /lpf (0 - 2); Urine Mucus FEW (None Seen); Urine Specific Gravity 1.024 (1.001-1.035); Urine WBC 26 /hpf (0 - 5)
[2021-02-18 11:03] LABS: Albumin 3.6 g/dL (3.4-5.0); Calcium 8.9 mg/dL (8.5-10.1)
[2021-02-18 11:06] LABS: BUN/Creatinine Ratio 22.6; Bilirubin, Total 0.9 mg/dL (0.2-1.0); Total Protein 6.9 g/dL (6.4-8.2)
[~2021-02-21] VITALS: Ht 160 cm; Wt 101.2 kg
[~2021-02-21 07:23] MED LIST changes: +CAR3125T PO; -DIGO0.12 PO; +FLUT1INH6 IN; +SACU1TAB PO
[2021-02-21] MEDS ORDERED: ceFAZolin 1GM/50ML 100 ML IV ONE (07:47)
[2021-02-21] MEDS ORDERED: fentaNYL CITRATE 100 MCG/2 ML VL ONE (09:11)
[2021-02-21] MEDS ORDERED: MEPERIDINE HCL (50 MG/ML) 1 ML VIAL ONE (09:11)
[2021-02-21] MEDS ORDERED: MIDAZOLAM HCL 2MG/2ML 2ml VIAL (1mg/ml) ONE (09:11)
[2021-02-21] MEDS ORDERED: DexAMETHasone SOD PHOS 10MG/1ML VIAL INJ ONE (09:29)
[2021-02-21] MEDS ORDERED: PROPOFOL 10 MG/ML 20 ML IV ONE (09:29)
[2021-02-21] MEDS ORDERED: LABETALOL HCL 5 MG/ML 4ML SYRINGE IV PRN (10:00)
[2021-02-21] MEDS ORDERED: MORPHINE SULFATE 4 MG/ML SYR/VIAL IV PRN (10:00)
[2021-02-21] MEDS ORDERED: ePHEDrine SULFATE 50 MG/ML AMP IV PRN (10:00)
[2021-02-21] MEDS ORDERED: ONDANSETRON HCL 4 MG/2 ML VIAL IV PRN ×2 (10:00→14:00)
[2021-02-21] MEDS ORDERED: HYDROmorphone HCL 2 MG/ML VL IV PRN (10:00)
[2021-02-21] MEDS ORDERED: MIDAZOLAM HCL 2MG/2ML 2ml VIAL (1mg/ml) IV PRN (10:00)
[2021-02-21 11:00] VITALS: BP 117/63
== END 2021-02-21 11:00 | disposition home or self-care (01) ==
LOC: SUR 07:23
PROVIDERS: ATTEND Obstetrics & Gynecology
DX: N85.00 Endometrial hyperplasia, unspecified (principal); J45.909 Unspecified asthma, uncomplicated; E66.01 Morbid (severe) obesity due to excess calories; G47.33 Obstructive sleep apnea (adult) (pediatric); I42.9 Cardiomyopathy, unspecified; E11.9 Type 2 diabetes mellitus without complications; M19.90 Unspecified osteoarthritis, unspecified site; Z88.1 Allergy status to other antibiotic agents; Z88.8 Allergy status to other drugs, medicaments and biological substances; Z68.39 Body mass index [BMI] 39.0-39.9, adult; Z96.89 Presence of other specified functional implants; Z79.82 Long term (current) use of aspirin; Z20.822 Contact with and (suspected) exposure to COVID-19; Z98.890 Other specified postprocedural states; Z79.899 Other long term (current) drug therapy
CPT/HCPCS: 36415; 58558; 80053; 81001; 85025; 86850; 86900; 86901; J0690; J1100; J2175; J2250; J2704; J3010; U0003

== ENCOUNTER → 2021-04-23 | Outpatient (CLI) | payer OTHER ==
[2021-04-23 15:08] LABS: Eosinophils # (auto) 0.2 10 ^3/uL (0-0.8); Lymphocytes # (auto) 0.8 10 ^3/uL (0.4-5.4); Mean Corpuscular Hgb Conc. 35.1 g/dL (32.0-36.0); Monocytes # (auto) 0.3 10 ^3/uL (0-1.3)
[2021-04-23 15:10] LABS: Basophils # (auto) 0.1 10 ^3/uL (0-0.2); Basophils % (auto) 1.3 % (0.0-2.0); Eosinophils % (auto) 3.8 % (0.0-7.0); Hematocrit 32.5 % (36.0-46.0); Hemoglobin 11.4 g/dL (12.2-16.2); Lymphocytes % (auto) 19.1 % (10.0-50.0); Mean Corpuscular Hemoglobin 35.6 pg (28.0-32.0); Mean Corpuscular Volume 101.4 fL (80.0-100.0); Monocytes % (auto) 7.2 % (0.0-12.0); Neutrophils % (auto) 68.6 % (37.0-80.0); Nucleated Red Blood Cells % 0.2 %; Red Blood Cells 3.21 10^6/uL (4.0-5.20); Red Cell Distribution Width 15.5 % (11.8-14.3); White Blood Cell 4.3 10^3/uL (4.4-10.8)
[2021-04-23 15:26] LABS: Albumin 3.5 g/dL (3.4-5.0); CRP High Sensitivity 0.23 mg/dL (< 0.3); Calcium 8.3 mg/dL (8.5-10.1); Potassium 4.6 mmol/L (3.5-5.1)
[2021-04-23 15:29] LABS: Bilirubin, Total 0.9 mg/dL (0.2-1.0); Total Protein 6.8 g/dL (6.4-8.2)
== END | disposition home or self-care (01) ==
LOC: LAB 14:26
PROVIDERS: ATTEND Internal Medicine Rheumatology
DX: Z11.1 Encounter for screening for respiratory tuberculosis (principal); M32.10 Systemic lupus erythematosus, organ or system involvement unspecified; M05.79 Rheumatoid arthritis with rheumatoid factor of multiple sites without organ or systems involvement
CPT/HCPCS: 36415; 80053; 85025; 85652; 86141

== ENCOUNTER → 2021-05-13 | Outpatient (CLI) | payer OTHER | END | disposition home or self-care (01) | LOC: XY 08:57 | PROVIDERS: ATTEND Internal Medicine | DX: I25.10 Atherosclerotic heart disease of native coronary artery without angina pectoris (principal) | CPT/HCPCS: 93886 ==

== ENCOUNTER → 2021-06-02 | Outpatient (CLI) | payer OTHER ==
[2021-06-02 12:02] LABS: Urine Bacteria FEW /hpf (None Seen); Urine Blood TRACE /uL (Negative); Urine Hyaline Cast FEW /lpf (0 - 2); Urine Mucus FEW (None Seen); Urine Specific Gravity 1.018 (1.001-1.035); Urine WBC 61 /hpf (0 - 5)
[2021-06-02 12:44] LABS: Potassium 4.2 mmol/L (3.5-5.1)
[2021-06-02 13:05] LABS: BUN/Creatinine Ratio 23.5; Calcium 8.8 mg/dL (8.5-10.1)
== END | disposition home or self-care (01) ==
LOC: LAB 10:57
PROVIDERS: ATTEND Internal Medicine
DX: N85.00 Endometrial hyperplasia, unspecified (principal); I10 Essential (primary) hypertension
CPT/HCPCS: 36415; 80048; 80061; 81001; 82306; 87086

== ENCOUNTER → 2021-06-05 | Outpatient (CLI) | payer OTHER | END | disposition home or self-care (01) | LOC: LAB 10:38 | PROVIDERS: ATTEND Internal Medicine | DX: Z01.812 Encounter for preprocedural laboratory examination (principal) | CPT/HCPCS: 36415; 82565; 84520 ==

== ENCOUNTER → 2021-06-05 | Outpatient (CLI) | payer OTHER | END | disposition home or self-care (01) | LOC: XYW 09:32 | PROVIDERS: ATTEND Internal Medicine | DX: I07.1 Rheumatic tricuspid insufficiency (principal); I42.0 Dilated cardiomyopathy; I35.0 Nonrheumatic aortic (valve) stenosis; I05.0 Rheumatic mitral stenosis | CPT/HCPCS: 93306 ==

== ENCOUNTER → 2021-06-30 | Outpatient (CLI) | payer OTHER ==
[2021-06-30 11:59] LABS: Urine Bacteria NONE SEEN /hpf (None Seen); Urine Blood 2+ /uL (Negative); Urine Specific Gravity 1.018 (1.001-1.035); Urine WBC 102 /hpf (0 - 5)
== END | disposition home or self-care (01) ==
LOC: LAB 11:08
PROVIDERS: ATTEND Internal Medicine
DX: R39.9 Unspecified symptoms and signs involving the genitourinary system (principal)
CPT/HCPCS: 81001

== ENCOUNTER → 2021-12-23 | Outpatient (CLI) | payer OTHER ==
[~2021-12-23] MED LIST changes: +CEPH-322 PO; +LISI2.5T47 PO; -MET25T PO; -SACU1TAB PO
[2021-12-23 13:41] LABS: Basophils # (auto) 0 10 ^3/uL (0-0.2); Basophils % (auto) 0.8 % (0.0-2.0); Eosinophils # (auto) 0.2 10 ^3/uL (0-0.8); Eosinophils % (auto) 4.3 % (0.0-7.0); Hematocrit 37.8 % (36.0-46.0); Hemoglobin 12.6 g/dL (12.2-16.2); Lymphocytes # (auto) 1.4 10 ^3/uL (0.4-5.4); Lymphocytes % (auto) 30.1 % (10.0-50.0); Mean Corpuscular Hemoglobin 32.3 pg (28.0-32.0); Mean Corpuscular Hgb Conc. 33.3 g/dL (32.0-36.0); Mean Corpuscular Volume 96.9 fL (80.0-100.0); Monocytes # (auto) 0.4 10 ^3/uL (0-1.3); Monocytes % (auto) 8.9 % (0.0-12.0); Neutrophils # (auto) 2.6 10 ^3/uL (1.6-8.6); Neutrophils % (auto) 55.9 % (37.0-80.0); Nucleated Red Blood Cells % 0.1 %; Red Cell Distribution Width 15.8 % (11.8-14.3); White Blood Cell 4.7 10^3/uL (4.4-10.8)
[2021-12-23 13:53] LABS: Urine Bacteria FEW /hpf (None Seen); Urine Blood Negative /uL (Negative); Urine Specific Gravity 1.016 (1.001-1.035); Urine WBC 1 /hpf (0 - 5)
[2021-12-23 14:46] LABS: Albumin 3.7 g/dL (3.4-5.0); BUN/Creatinine Ratio 22.9; Potassium 4.3 mmol/L (3.5-5.1)
[2021-12-23 14:49] LABS: Bilirubin, Total 0.7 mg/dL (0.2-1.0); Total Protein 6.8 g/dL (6.4-8.2)
== END | disposition home or self-care (01) ==
LOC: LAB 13:17
PROVIDERS: ATTEND Internal Medicine
DX: R73.03 Prediabetes (principal)
CPT/HCPCS: 36415; 80053; 81001; 82306; 85025

== ENCOUNTER → 2022-01-07 | Outpatient (CLI) | payer OTHER | END | disposition home or self-care (01) | LOC: LAB 14:10 | PROVIDERS: ATTEND Internal Medicine | DX: E83.52 Hypercalcemia (principal) | CPT/HCPCS: 82274 ==

== ENCOUNTER 2022-01-10 19:46 | Inpatient (IN) | payer OTHER ==
[~2022-01-10] VITALS: Ht 160 cm; Wt 102.5 kg
[2022-01-10 21:49] LABS: Basophils # (auto) 0 10 ^3/uL (0-0.2); Basophils % (auto) 0.8 % (0.0-2.0); Eosinophils # (auto) 0.1 10 ^3/uL (0-0.8); Eosinophils % (auto) 2.4 % (0.0-7.0); Hematocrit 34.3 % (36.0-46.0); Hemoglobin 11.6 g/dL (12.2-16.2); Lymphocytes # (auto) 1.1 10 ^3/uL (0.4-5.4); Mean Corpuscular Hemoglobin 33.1 pg (28.0-32.0); Mean Corpuscular Hgb Conc. 33.9 g/dL (32.0-36.0); Mean Corpuscular Volume 97.8 fL (80.0-100.0); Monocytes # (auto) 0.4 10 ^3/uL (0-1.3); Monocytes % (auto) 7.3 % (0.0-12.0); Neutrophils # (auto) 4.2 10 ^3/uL (1.6-8.6); Neutrophils % (auto) 71.5 % (37.0-80.0); White Blood Cell 5.9 10^3/uL (4.4-10.8)
[2022-01-10 22:00] VITALS: BP 124/47
[2022-01-10 22:03] LABS: Albumin 3.5 g/dL (3.4-5.0); Calcium 8.6 mg/dL (8.5-10.1); Potassium 4.3 mmol/L (3.5-5.1)
[2022-01-10 22:06] LABS: BUN/Creatinine Ratio 23.1
[2022-01-10 22:07] LABS: Bilirubin, Total 0.4 mg/dL (0.2-1.0); Total Protein 6.4 g/dL (6.4-8.2)
[2022-01-10] MEDS ORDERED: hydrALAZINE HCL 20 MG/ML VL IV PRN (22:45)
[2022-01-10] MEDS ORDERED: IPRATROPIUM BROM 0.5 MG/2.5ML INH SOL NEB PRN (22:45)
[2022-01-10] MEDS ORDERED: FUROSEMIDE 20 MG/2 ML VIAL IV ONE (22:45)
[2022-01-10] MEDS ORDERED: ONDANSETRON HCL 4 MG/2 ML VIAL IV PRN (22:45)
[2022-01-10] MEDS ORDERED: ALBUTEROL SULF 2.5 MG/0.5ML(0.5%) NEB SOLN NEB PRN (22:45)
[2022-01-10] MEDS ORDERED: DOCUSATE SOD 100 MG CAP PO PRN (22:45)
[2022-01-10] MEDS ORDERED: NITROGLYCERIN 0.4 MG SL TAB SL PRN (23:00)
[2022-01-10] MEDS ORDERED: MORPHINE SULFATE INJ 2 MG/ml SYRG IV PRN (23:00)
[2022-01-10 23:36] LABS: Urine Bacteria FEW /hpf (None Seen); Urine Blood Negative /uL (Negative); Urine Mucus FEW (None Seen); Urine WBC 7 /hpf (0 - 5)
[2022-01-11 04:03] VITALS: BP 117/73
[2022-01-11 05:00] VITALS: BP 117/73
[2022-01-11] MEDS: HYDROcodone-ACET 5/325MG TAB PO PRN (05:42)
[2022-01-11 06:23] LABS: Albumin 3.4 g/dL (3.4-5.0); Calcium 8.6 mg/dL (8.5-10.1); Potassium 4.3 mmol/L (3.5-5.1)
[2022-01-11] MEDS: SODIUM CHLOR 0.9% PF (SALINE LOCK) 10ML VIAL/SYR IV SCH ×2 (06:27→13:46)
[2022-01-11 06:28] LABS: BUN/Creatinine Ratio 26.8; Bilirubin, Total 0.4 mg/dL (0.2-1.0); Total Protein 6.4 g/dL (6.4-8.2)
[2022-01-11 06:49] LABS: Basophils # (auto) 0.1 10 ^3/uL (0-0.2); Basophils % (auto) 0.9 % (0.0-2.0); Eosinophils # (auto) 0.2 10 ^3/uL (0-0.8); Eosinophils % (auto) 3.5 % (0.0-7.0); Hematocrit 34.4 % (36.0-46.0); Hemoglobin 11.9 g/dL (12.2-16.2); Lymphocytes # (auto) 1.6 10 ^3/uL (0.4-5.4); Lymphocytes % (auto) 29.1 % (10.0-50.0); Mean Corpuscular Hemoglobin 33.7 pg (28.0-32.0); Mean Corpuscular Hgb Conc. 34.7 g/dL (32.0-36.0); Mean Corpuscular Volume 97.4 fL (80.0-100.0); Monocytes # (auto) 0.4 10 ^3/uL (0-1.3); Monocytes % (auto) 7.7 % (0.0-12.0); Neutrophils # (auto) 3.2 10 ^3/uL (1.6-8.6); Neutrophils % (auto) 58.8 % (37.0-80.0); Nucleated Red Blood Cells % 0.1 %; Red Blood Cells 3.54 10^6/uL (4.0-5.20); Red Cell Distribution Width 15.3 % (11.8-14.3); White Blood Cell 5.5 10^3/uL (4.4-10.8)
[2022-01-11 09:00] VITALS: BP 95/56
[2022-01-11] MEDS: FUROSEMIDE 20 MG/2 ML VIAL IV SCH (10:00)
[2022-01-11] MEDS: FAMOTIDINE (10MG/ML) 2ML VL IV SCH (10:00)
[2022-01-11] MEDS: ASPirin 81 mg TAB PO SCH (10:00)
[2022-01-11] MEDS: CARVEDILOL 3.125 MG TAB PO SCH ×2 (10:00→22:00)
[2022-01-11 13:00] VITALS: BP 100/53
[2022-01-11 17:00] VITALS: BP 117/86
[2022-01-11 22:00] VITALS: BP 105/54
[2022-01-12 05:00] VITALS: BP 128/51
[2022-01-12] MEDS: ACETAMINOPHEN 325 MG TAB PO PRN (05:06)
[2022-01-12] MEDS: SODIUM CHLOR 0.9% PF (SALINE LOCK) 10ML VIAL/SYR IV SCH ×4 (08:07→22:37)
[2022-01-12 09:00] VITALS: BP 126/69
[2022-01-12] MEDS: FAMOTIDINE (10MG/ML) 2ML VL IV SCH (10:00)
[2022-01-12] MEDS: FUROSEMIDE 20 MG/2 ML VIAL IV SCH (10:00)
[2022-01-12] MEDS: ASPirin 81 mg TAB PO SCH (10:15)
[2022-01-12] MEDS: CARVEDILOL 3.125 MG TAB PO SCH ×2 (10:20→22:00)
[2022-01-12] MEDS ORDERED: AMIODARONE HCL 200 MG TAB PO ONE (11:00)
[2022-01-12 13:00] VITALS: BP 116/71
[2022-01-12] MEDS ORDERED: cefTRIAXone 1GM/50ML D5W 50 ML IV ONE (16:00)
[2022-01-12 17:00] VITALS: BP 113/73
[2022-01-12 22:00] VITALS: BP 129/72
[2022-01-12] MEDS: AMIODARONE HCL 200 MG TAB PO SCH (22:00)
[2022-01-13] VITALS (8 sets, daily range): BP systolic 112–132; BP diastolic 61–76
[2022-01-13 05:34] LABS: Basophils # (auto) 0 10 ^3/uL (0-0.2); Basophils % (auto) 0.8 % (0.0-2.0); Eosinophils # (auto) 0.2 10 ^3/uL (0-0.8); Eosinophils % (auto) 4.2 % (0.0-7.0); Hematocrit 34.9 % (36.0-46.0); Hemoglobin 12.2 g/dL (12.2-16.2); Lymphocytes # (auto) 1.2 10 ^3/uL (0.4-5.4); Lymphocytes % (auto) 26.7 % (10.0-50.0); Mean Corpuscular Hgb Conc. 34.9 g/dL (32.0-36.0); Mean Corpuscular Volume 97.5 fL (80.0-100.0); Monocytes # (auto) 0.6 10 ^3/uL (0-1.3); Monocytes % (auto) 12.3 % (0.0-12.0); Neutrophils # (auto) 2.6 10 ^3/uL (1.6-8.6); Nucleated Red Blood Cells % 0.1 %; Red Blood Cells 3.58 10^6/uL (4.0-5.20); Red Cell Distribution Width 15.3 % (11.8-14.3); White Blood Cell 4.7 10^3/uL (4.4-10.8)
[2022-01-13 05:51] LABS: Albumin 3.5 g/dL (3.4-5.0); Calcium 9.4 mg/dL (8.5-10.1)
[2022-01-13 05:53] LABS: INR 0.97 (0.9-1.15); Partial Thromboplastin Time 26.8 sec (24.6-33.4)
[2022-01-13 05:55] LABS: Total Protein 6.5 g/dL (6.4-8.2)
[2022-01-13] MEDS: SODIUM CHLOR 0.9% PF (SALINE LOCK) 10ML VIAL/SYR IV SCH ×2 (07:53→14:00)
[2022-01-13] MEDS: cefTRIAXone 1GM/50ML D5W 50 ML IV SCH (07:53)
[2022-01-13] MEDS: FUROSEMIDE 20 MG/2 ML VIAL IV SCH (08:50)
[2022-01-13] MEDS: FAMOTIDINE (10MG/ML) 2ML VL IV SCH (09:18)
[2022-01-13] MEDS: ASPirin 81 mg TAB PO SCH (09:38)
[2022-01-13] MEDS: CARVEDILOL 3.125 MG TAB PO SCH ×2 (09:38→22:04)
[2022-01-13] MEDS: AMIODARONE HCL 200 MG TAB PO SCH ×2 (09:38→22:02)
[2022-01-13] MEDS: LISINOPRIL 5 MG TAB PO SCH (09:39)
[2022-01-13] MEDS ORDERED: LIDOCAINE 2%HCL (LOCAL ANESTH.) INJ 20ML MDV ONE (11:52)
[2022-01-13] MEDS ORDERED: IODIXANOL 320MG/ML 100ML BTL IV ONE (11:52)
[2022-01-13] MEDS ORDERED: ANGIOMAX 250 MG VIAL IV ONE (15:53)
[2022-01-13] MEDS ORDERED: MIDAZOLAM HCL 2MG/2ML 2ml VIAL (1mg/ml) ONE (15:54)
[2022-01-13] MEDS ORDERED: VERAPAMIL 2.5MG/ML INJ 2ML VIAL IV ONE (15:54)
[2022-01-13] MEDS ORDERED: fentaNYL CITRATE 100 MCG/2 ML VL ONE (15:54)
[2022-01-13] MEDS ORDERED: HEPARIN SODIUM (PORCINE) 5000 UNITS/ML 1ML VIAL ONE (15:54)
[2022-01-13] MEDS ORDERED: SODIUM CHL 0.9% 0 ML ONE (15:54)
[2022-01-14] MEDS: HYDROcodone-ACET 5/325MG TAB PO PRN (00:45)
[2022-01-14] MEDS: SODIUM CHLOR 0.9% PF (SALINE LOCK) 10ML VIAL/SYR IV SCH ×3 (01:42→14:04)
[2022-01-14 05:00] VITALS: BP_SYST 105; BP_SYST 56; BP_DIAS 59
[2022-01-14] MEDS ORDERED: ERGOCALCIFEROL 50,000 UNIT(1.25MG) CAP PO SCH (07:45)
[2022-01-14] MEDS: ACETAMINOPHEN 325 MG TAB PO PRN ×2 (07:51→14:11)
[2022-01-14] MEDS: cefTRIAXone 1GM/50ML D5W 50 ML IV SCH (08:11)
[2022-01-14] MEDS: FUROSEMIDE 20 MG/2 ML VIAL IV SCH (08:12)
[2022-01-14] MEDS: ASPirin 81 mg TAB PO SCH (08:12)
[2022-01-14] MEDS: AMIODARONE HCL 200 MG TAB PO SCH (08:13)
[2022-01-14] MEDS: CARVEDILOL 3.125 MG TAB PO SCH (08:13)
[2022-01-14] MEDS: LISINOPRIL 5 MG TAB PO SCH (08:14)
[2022-01-14 09:00] VITALS: BP 111/58
[2022-01-14 13:00] VITALS: BP 99/56
[2022-01-14] MEDS ORDERED: AMIO200T4 PO (13:09)
[2022-01-14 16:48] VITALS: BP 138/98
== END 2022-01-14 16:49 | disposition home or self-care (01) | DRG 286 ==
LOC: ER 19:46 → EDUNIT# 19:46 → EDBD 19:46 → TELE-WESTW 22:59
PROVIDERS: ADMIT Nurse Practitioner Family; ATTEND Internal Medicine
PROC: 4A023N7 Measurement of Cardiac Sampling and Pressure, Left Heart, Percutaneous Approach (ICD-10-PCS; principal; 2022-01-13)
PROC: B211YZZ Fluoroscopy of Multiple Coronary Arteries using Other Contrast (ICD-10-PCS; 2022-01-13)
PROC: B215YZZ Fluoroscopy of Left Heart using Other Contrast (ICD-10-PCS; 2022-01-13)
DX: I47.1 Supraventricular tachycardia (principal); I50.23 Acute on chronic systolic (congestive) heart failure; I42.0 Dilated cardiomyopathy; Z68.41 Body mass index [BMI] 40.0-44.9, adult; I13.0 Hypertensive heart and chronic kidney disease with heart failure and stage 1 through stage 4 chronic kidney disease, or unspecified chronic kidney disease; E11.65 Type 2 diabetes mellitus with hyperglycemia; N18.2 Chronic kidney disease, stage 2 (mild); Z20.822 Contact with and (suspected) exposure to COVID-19; E66.01 Morbid (severe) obesity due to excess calories; E78.5 Hyperlipidemia, unspecified; I25.10 Atherosclerotic heart disease of native coronary artery without angina pectoris; J44.9 Chronic obstructive pulmonary disease, unspecified; E11.22 Type 2 diabetes mellitus with diabetic chronic kidney disease; Z88.2 Allergy status to sulfonamides; Z88.8 Allergy status to other drugs, medicaments and biological substances; Z95.810 Presence of automatic (implantable) cardiac defibrillator
CPT/HCPCS: 36415; 70450; 71045; 80053; 81001; 83036; 83880; 84439; 84443; 84484; 85025; 85610; 85730; 86850; 86900; 86901; 87086; 93005; 93306; 93458; 94640; 96374; 96376; 99152; G0378; J0696; J2250; J3490; Q9967

== ENCOUNTER → 2022-01-27 | Outpatient (CLI) | payer OTHER ==
[~2022-01-27] MED LIST changes: +AMIO200T4 PO; -CEPH-322 PO
[2022-01-27 14:20] LABS: Basophils # (auto) 0.1 10 ^3/uL (0-0.2); Eosinophils # (auto) 0.3 10 ^3/uL (0-0.8); Hematocrit 35.6 % (36.0-46.0); Lymphocytes # (auto) 1.2 10 ^3/uL (0.4-5.4); Lymphocytes % (auto) 23.7 % (10.0-50.0); Mean Corpuscular Hemoglobin 33.1 pg (28.0-32.0); Mean Corpuscular Hgb Conc. 33.8 g/dL (32.0-36.0); Monocytes # (auto) 0.6 10 ^3/uL (0-1.3); Monocytes % (auto) 11.3 % (0.0-12.0); Neutrophils # (auto) 3.1 10 ^3/uL (1.6-8.6); Nucleated Red Blood Cells % 0.1 %; Red Blood Cells 3.63 10^6/uL (4.0-5.20); Red Cell Distribution Width 15.5 % (11.8-14.3); White Blood Cell 5.2 10^3/uL (4.4-10.8)
== END | disposition home or self-care (01) ==
LOC: LAB 14:08
PROVIDERS: ATTEND Ophthalmology
DX: M31.6 Other giant cell arteritis (principal)
CPT/HCPCS: 36415; 85025; 85652; 86141

== ENCOUNTER → 2022-02-26 | Outpatient (CLI) | payer OTHER ==
[2022-02-26 09:28] LABS: Basophils # (auto) 0 10 ^3/uL (0-0.2); Basophils % (auto) 0.9 % (0.0-2.0); Eosinophils # (auto) 0.2 10 ^3/uL (0-0.8); Hematocrit 39.3 % (36.0-46.0); Hemoglobin 13.3 g/dL (12.2-16.2); Lymphocytes # (auto) 0.9 10 ^3/uL (0.4-5.4); Mean Corpuscular Hemoglobin 33.7 pg (28.0-32.0); Mean Corpuscular Hgb Conc. 33.9 g/dL (32.0-36.0); Mean Corpuscular Volume 99.5 fL (80.0-100.0); Monocytes # (auto) 0.4 10 ^3/uL (0-1.3); Monocytes % (auto) 8.1 % (0.0-12.0); Neutrophils # (auto) 3.3 10 ^3/uL (1.6-8.6); Red Blood Cells 3.95 10^6/uL (4.0-5.20); Red Cell Distribution Width 16.4 % (11.8-14.3); White Blood Cell 4.8 10^3/uL (4.4-10.8)
[2022-02-26 10:04] LABS: Albumin 3.8 g/dL (3.4-5.0); Calcium 8.9 mg/dL (8.5-10.1); Potassium 4.5 mmol/L (3.5-5.1)
[2022-02-26 10:07] LABS: BUN/Creatinine Ratio 21.7; Bilirubin, Total 0.8 mg/dL (0.2-1.0); CRP High Sensitivity 0.29 mg/dL (< 0.3); Total Protein 6.8 g/dL (6.4-8.2)
== END | disposition home or self-care (01) ==
LOC: LAB 09:16
PROVIDERS: ATTEND Internal Medicine Rheumatology
DX: M32.10 Systemic lupus erythematosus, organ or system involvement unspecified (principal); M05.79 Rheumatoid arthritis with rheumatoid factor of multiple sites without organ or systems involvement
CPT/HCPCS: 36415; 80053; 85025; 85652; 86141

== ENCOUNTER → 2022-04-14 | Outpatient (CLI) | payer OTHER ==
[2022-04-14 10:45] LABS: Basophils # (auto) 0 10 ^3/uL (0-0.2); Eosinophils # (auto) 0.2 10 ^3/uL (0-0.8); Hemoglobin 13.9 g/dL (12.2-16.2); Lymphocytes # (auto) 0.9 10 ^3/uL (0.4-5.4); Mean Corpuscular Hemoglobin 34.3 pg (28.0-32.0); Monocytes # (auto) 0.5 10 ^3/uL (0-1.3); Neutrophils # (auto) 2.6 10 ^3/uL (1.6-8.6); Red Blood Cells 4.04 10^6/uL (4.0-5.20); White Blood Cell 4.2 10^3/uL (4.4-10.8)
[2022-04-14 10:48] LABS: Basophils % (auto) 0.8 % (0.0-2.0); Eosinophils % (auto) 3.7 % (0.0-7.0); Hematocrit 41.1 % (36.0-46.0); Lymphocytes % (auto) 21.4 % (10.0-50.0); Mean Corpuscular Hgb Conc. 33.7 g/dL (32.0-36.0); Mean Corpuscular Volume 101.6 fL (80.0-100.0); Monocytes % (auto) 11.5 % (0.0-12.0); Neutrophils % (auto) 62.6 % (37.0-80.0); Nucleated Red Blood Cells % 0.2 %; Red Cell Distribution Width 16.3 % (11.8-14.3)
[2022-04-14 12:18] LABS: Albumin 3.6 g/dL (3.4-5.0); Bilirubin, Total 0.7 mg/dL (0.2-1.0); Calcium 9.4 mg/dL (8.5-10.1); Potassium 4.7 mmol/L (3.5-5.1); Total Protein 7.1 g/dL (6.4-8.2)
== END | disposition home or self-care (01) ==
LOC: LAB 10:26
PROVIDERS: ATTEND Internal Medicine
DX: I08.8 Other rheumatic multiple valve diseases (principal); I10 Essential (primary) hypertension
CPT/HCPCS: 36415; 80053; 80061; 82306; 83036; 85025; 93306

== ENCOUNTER 2022-04-15 16:57 | Emergency (ER) | payer OTHER ==
[~2022-04-15] VITALS: Ht 160 cm; Wt 101.6 kg
[2022-04-15 17:12] VITALS: BP 159/79
[2022-04-15] MEDS ORDERED: LORazepam 0.5 MG TAB PO ONE (17:15)
[2022-04-15 18:44] LABS: Basophils # (auto) 0 10 ^3/uL (0-0.2); Basophils % (auto) 0.6 % (0.0-2.0); Eosinophils # (auto) 0.2 10 ^3/uL (0-0.8); Eosinophils % (auto) 3.1 % (0.0-7.0); Hematocrit 39.3 % (36.0-46.0); Hemoglobin 13.3 g/dL (12.2-16.2); Lymphocytes # (auto) 0.8 10 ^3/uL (0.4-5.4); Lymphocytes % (auto) 16.1 % (10.0-50.0); Mean Corpuscular Hemoglobin 34.6 pg (28.0-32.0); Mean Corpuscular Hgb Conc. 33.8 g/dL (32.0-36.0); Mean Corpuscular Volume 102.4 fL (80.0-100.0); Monocytes # (auto) 0.4 10 ^3/uL (0-1.3); Monocytes % (auto) 7.3 % (0.0-12.0); Neutrophils # (auto) 3.7 10 ^3/uL (1.6-8.6); Neutrophils % (auto) 72.9 % (37.0-80.0); Nucleated Red Blood Cells % 0.3 %; Red Blood Cells 3.83 10^6/uL (4.0-5.20); Red Cell Distribution Width 16.4 % (11.8-14.3); White Blood Cell 5.1 10^3/uL (4.4-10.8)
[2022-04-15 19:03] LABS: Albumin 3.5 g/dL (3.4-5.0); Calcium 8.5 mg/dL (8.5-10.1); Magnesium 2.8 mg/dL (1.6-2.6); Potassium 4.6 mmol/L (3.5-5.1)
[2022-04-15 19:07] LABS: BUN/Creatinine Ratio 21.9; Bilirubin, Total 0.5 mg/dL (0.2-1.0); Total Protein 6.4 g/dL (6.4-8.2)
== END 2022-04-15 20:03 | disposition home or self-care (01) ==
LOC: EDBD 16:57 → ER 16:57 → EDUNIT# 16:57 → ER 20:00
DX: R42 Dizziness and giddiness (principal); I16.0 Hypertensive urgency; I11.0 Hypertensive heart disease with heart failure; I50.9 Heart failure, unspecified; J44.9 Chronic obstructive pulmonary disease, unspecified; M19.90 Unspecified osteoarthritis, unspecified site; Z98.51 Tubal ligation status
CPT/HCPCS: 36415; 70450; 80053; 83735; 85025; 93005

== ENCOUNTER → 2022-06-03 | Outpatient (CLI) | payer OTHER ==
[2022-06-03 10:04] LABS: Albumin 3.7 g/dL (3.4-5.0); Potassium 4.4 mmol/L (3.5-5.1)
[2022-06-03 10:08] LABS: Bilirubin, Total 0.6 mg/dL (0.2-1.0); Total Protein 6.6 g/dL (6.4-8.2)
== END | disposition home or self-care (01) ==
LOC: LAB 09:31
PROVIDERS: ATTEND Internal Medicine
DX: R06.02 Shortness of breath (principal)
CPT/HCPCS: 36415; 80053; 83880

== ENCOUNTER → 2022-07-01 | Outpatient (CLI) | payer OTHER ==
[2022-07-01 12:27] LABS: Monocytes # (auto) 0.6 10 ^3/uL (0-1.3); Nucleated Red Blood Cells % 0.2 %; White Blood Cell 4.8 10^3/uL (4.4-10.8)
[2022-07-01 12:28] LABS: Basophils # (auto) 0.1 10 ^3/uL (0-0.2); Basophils % (auto) 1.2 % (0.0-2.0); Eosinophils # (auto) 0.1 10 ^3/uL (0-0.8); Hematocrit 40.4 % (36.0-46.0); Lymphocytes # (auto) 0.8 10 ^3/uL (0.4-5.4); Lymphocytes % (auto) 16.2 % (10.0-50.0); Mean Corpuscular Hemoglobin 35.4 pg (28.0-32.0); Mean Corpuscular Hgb Conc. 34.6 g/dL (32.0-36.0); Mean Corpuscular Volume 102.3 fL (80.0-100.0); Monocytes % (auto) 12.7 % (0.0-12.0); Neutrophils # (auto) 3.2 10 ^3/uL (1.6-8.6); Neutrophils % (auto) 66.9 % (37.0-80.0); Red Blood Cells 3.95 10^6/uL (4.0-5.20); Red Cell Distribution Width 15.5 % (11.8-14.3)
[2022-07-01 12:50] LABS: Albumin 3.6 g/dL (3.4-5.0); Calcium 8.6 mg/dL (8.5-10.1); Potassium 4.6 mmol/L (3.5-5.1)
[2022-07-01 12:53] LABS: BUN/Creatinine Ratio 19.1; Bilirubin, Total 0.6 mg/dL (0.2-1.0); Total Protein 6.7 g/dL (6.4-8.2)
== END | disposition home or self-care (01) ==
LOC: LAB 12:07
PROVIDERS: ATTEND Internal Medicine Rheumatology
DX: R94.5 Abnormal results of liver function studies (principal); M32.10 Systemic lupus erythematosus, organ or system involvement unspecified; M05.79 Rheumatoid arthritis with rheumatoid factor of multiple sites without organ or systems involvement
CPT/HCPCS: 36415; 80053; 85025

== ENCOUNTER → 2022-07-14 | Outpatient (CLI) | payer OTHER | END | disposition home or self-care (01) | LOC: XYW 11:53 | PROVIDERS: ATTEND Internal Medicine | DX: I08.0 Rheumatic disorders of both mitral and aortic valves (principal); I13.10 Hypertensive heart and chronic kidney disease without heart failure, with stage 1 through stage 4 chronic kidney disease, or unspecified chronic kidney disease; N18.9 Chronic kidney disease, unspecified | CPT/HCPCS: 93306 ==

== ENCOUNTER → 2022-10-07 | Outpatient (CLI) | payer OTHER ==
[2022-10-07 10:32] LABS: Basophils # (auto) 0 10 ^3/uL (0-0.2); Basophils % (auto) 1.1 % (0.0-2.0); Eosinophils # (auto) 0.2 10 ^3/uL (0-0.8); Monocytes # (auto) 0.4 10 ^3/uL (0-1.3); Neutrophils # (auto) 2.9 10 ^3/uL (1.6-8.6); Nucleated Red Blood Cells % 0.2 %; White Blood Cell 4.3 10^3/uL (4.4-10.8)
[2022-10-07 10:34] LABS: Eosinophils % (auto) 4.3 % (0.0-7.0); Hematocrit 38.9 % (36.0-46.0); Hemoglobin 13.5 g/dL (12.2-16.2); Lymphocytes # (auto) 0.8 10 ^3/uL (0.4-5.4); Lymphocytes % (auto) 17.9 % (10.0-50.0); Mean Corpuscular Hemoglobin 35.9 pg (28.0-32.0); Mean Corpuscular Hgb Conc. 34.6 g/dL (32.0-36.0); Mean Corpuscular Volume 103.7 fL (80.0-100.0); Monocytes % (auto) 10.2 % (0.0-12.0); Neutrophils % (auto) 66.5 % (37.0-80.0); Red Blood Cells 3.75 10^6/uL (4.0-5.20); Red Cell Distribution Width 16.1 % (11.8-14.3)
[2022-10-07 11:33] LABS: Albumin 3.6 g/dL (3.4-5.0); Calcium 9.2 mg/dL (8.5-10.1)
[2022-10-07 11:38] LABS: CRP High Sensitivity 0.75 mg/dL (< 0.3); Total Protein 6.8 g/dL (6.4-8.2)
== END | disposition home or self-care (01) ==
LOC: LAB 10:06
PROVIDERS: ATTEND Internal Medicine
DX: I10 Essential (primary) hypertension (principal); M32.10 Systemic lupus erythematosus, organ or system involvement unspecified; M05.79 Rheumatoid arthritis with rheumatoid factor of multiple sites without organ or systems involvement
CPT/HCPCS: 36415; 80053; 80061; 83036; 85025; 85652; 86141; 86160

== ENCOUNTER → 2023-01-07 | Outpatient (CLI) | payer OTHER ==
[~2023-01-07] MED LIST changes: +AMIO200T13 PO; -AMIO200T4 PO; +FOLI-119 PO; -FOLI1TAB6 PO
== END | disposition home or self-care (01) ==
LOC: XYW 13:02
DX: I51.7 Cardiomegaly (principal); I42.8 Other cardiomyopathies
CPT/HCPCS: 93306

== ENCOUNTER 2023-01-27 10:35 | Inpatient (IN) | payer OTHER ==
[~2023-01-27] VITALS: Ht 157.5 cm; Wt 105.0 kg
[2023-01-27] MEDS ORDERED: SODIUM CHLORIDE 0.9% 1,000 ML IV ONE ×2 (10:45)
[2023-01-27 11:09] LABS: Basophils # (auto) 0.1 10 ^3/uL (0-0.2); Eosinophils # (auto) 0.1 10 ^3/uL (0-0.8); Hemoglobin 14.7 g/dL (12.2-16.2); Lymphocytes # (auto) 0.8 10 ^3/uL (0.4-5.4); Monocytes # (auto) 0.7 10 ^3/uL (0-1.3); Nucleated Red Blood Cells % 0.2 %; White Blood Cell 6.3 10^3/uL (4.4-10.8)
[2023-01-27 11:11] LABS: Eosinophils % (auto) 1.4 % (0.0-7.0); Hematocrit 43.3 % (36.0-46.0); Lymphocytes % (auto) 13.3 % (10.0-50.0); Mean Corpuscular Hemoglobin 34.8 pg (28.0-32.0); Mean Corpuscular Volume 102.5 fL (80.0-100.0); Monocytes % (auto) 11.6 % (0.0-12.0); Neutrophils # (auto) 4.5 10 ^3/uL (1.6-8.6); Neutrophils % (auto) 72.7 % (37.0-80.0); Red Blood Cells 4.22 10^6/uL (4.0-5.20); Red Cell Distribution Width 16.1 % (11.8-14.3)
[2023-01-27 11:27] LABS: Alanine Aminotransferase 77 U/L (7-40); Albumin 4.3 g/dL (3.2-4.8); Alkaline Phosphatase 76 U/L (46-116); Anion Gap 9.7 (5-15); Aspartate Aminotransferase 81 U/L (13-40); BUN/Creatinine Ratio 17.9 (10.0-20.0); Blood Urea Nitrogen 30 mg/dL (9-23); Calcium 9.3 mg/dL (8.5-10.1); Carbon Dioxide 25.3 mmol/L (20-30); Chloride 102 mmol/L (98-107); Glucose 166 mg/dL (74-106); Potassium 3.7 mmol/L (3.5-5.1); Sodium 137 mmol/L (136-145); Total Protein 6.8 g/dL (5.7-8.2)
[2023-01-27 13:16] VITALS: PULSE 78; RESP 10; O2SAT 96
[2023-01-27] MEDS ORDERED: IPRATROPIUM BROM 0.5 MG/2.5ML INH SOL NEB PRN (13:30)
[2023-01-27] MEDS ORDERED: ONDANSETRON HCL 4 MG/2 ML VIAL IV PRN (13:30)
[2023-01-27] MEDS ORDERED: ALBUTEROL SULF 2.5 MG/0.5ML(0.5%) NEB SOLN NEB PRN (13:30)
[2023-01-27] MEDS ORDERED: DOCUSATE SOD 100 MG CAP PO PRN (13:30)
[2023-01-27] MEDS ORDERED: MORPHINE SULFATE INJ 2 MG/ml SYRG IV PRN (13:45)
[2023-01-27] MEDS ORDERED: NITROGLYCERIN 0.4 MG SL TAB SL PRN (13:45)
[2023-01-27 14:30] VITALS: PULSE 77; RESP 20; O2SAT 99
[2023-01-27] MEDS: SODIUM CHLOR 0.9% PF (SALINE LOCK) 10ML VIAL/SYR IV SCH ×2 (14:34→21:28)
[2023-01-27] MEDS: HYDROcodone-ACET 5/325MG TAB PO PRN (16:46)
[2023-01-27 19:30] VITALS: PULSE 77; RESP 20; O2SAT 98
[2023-01-27] MEDS: CARVEDILOL 3.125 MG TAB PO SCH ×2 (21:33→21:37)
[2023-01-28] VITALS (10 sets, daily range): BP systolic 98–134; BP diastolic 50–72; PULSE 57–96; RESP 15–20; TEMP 97.6–98.5; O2SAT 96–99
[2023-01-28] MEDS: HYDROcodone-ACET 5/325MG TAB PO PRN (00:07)
[2023-01-28] MEDS: IBUPROFEN 600 MG TAB PO PRN ×2 (05:30→16:06)
[2023-01-28] MEDS: SODIUM CHLOR 0.9% PF (SALINE LOCK) 10ML VIAL/SYR IV SCH ×3 (05:34→21:48)
[2023-01-28 07:09] LABS: Alanine Aminotransferase 59 U/L (7-40); Albumin 3.5 g/dL (3.2-4.8); Alkaline Phosphatase 58 U/L (46-116); Anion Gap 7.3 (5-15); Aspartate Aminotransferase 65 U/L (13-40); BUN/Creatinine Ratio 19.8 (10.0-20.0); Blood Urea Nitrogen 24 mg/dL (9-23); Calcium 8.7 mg/dL (8.5-10.1); Carbon Dioxide 25.7 mmol/L (20-30); Chloride 107 mmol/L (98-107); Glucose 102 mg/dL (74-106); Potassium 3.5 mmol/L (3.5-5.1); Sodium 140 mmol/L (136-145)
[2023-01-28 07:10] LABS: Total Protein 5.4 g/dL (5.7-8.2)
[2023-01-28 07:34] LABS: Basophils # (auto) 0 10 ^3/uL (0-0.2); Basophils % (auto) 1.1 % (0.0-2.0); Eosinophils # (auto) 0.1 10 ^3/uL (0-0.8); Hemoglobin 12.4 g/dL (12.2-16.2); Lymphocytes # (auto) 0.7 10 ^3/uL (0.4-5.4); Monocytes # (auto) 0.5 10 ^3/uL (0-1.3); White Blood Cell 4.1 10^3/uL (4.4-10.8)
[2023-01-28 07:36] LABS: Hematocrit 35.7 % (36.0-46.0); Lymphocytes % (auto) 16.6 % (10.0-50.0); Mean Corpuscular Hemoglobin 35.2 pg (28.0-32.0); Mean Corpuscular Hgb Conc. 34.6 g/dL (32.0-36.0); Mean Corpuscular Volume 101.8 fL (80.0-100.0); Neutrophils # (auto) 2.8 10 ^3/uL (1.6-8.6); Neutrophils % (auto) 67.3 % (37.0-80.0); Nucleated Red Blood Cells % 0.2 %; Red Blood Cells 3.51 10^6/uL (4.0-5.20); Red Cell Distribution Width 16.3 % (11.8-14.3)
[2023-01-28] MEDS: CARVEDILOL 3.125 MG TAB PO SCH (10:00)
[2023-01-28] MEDS: ASPirin 81 mg TAB PO SCH (10:47)
[2023-01-28] MEDS ORDERED: EMPA1TAB3 PO (10:54)
[2023-01-28] MEDS ORDERED: SACU1TAB7 PO (10:54)
[2023-01-28 19:25] LABS: Urine Bacteria NONE SEEN /hpf (None Seen); Urine Blood Negative /uL (Negative); Urine Clarity Clear (Clear); Urine Color Colorless (Yellow); Urine Mucus FEW (None Seen); Urine Protein, UAD Negative (Negative); Urine Specific Gravity 1.012 (1.001-1.035); Urine Urobilinogen Normal (Negative); Urine WBC 21 /hpf (0 - 5)
[2023-01-29 05:00] VITALS: BP 117/57; PULSE 68; RESP 18; TEMP 98.2; O2SAT 100
[2023-01-29] MEDS: SODIUM CHLOR 0.9% PF (SALINE LOCK) 10ML VIAL/SYR IV SCH ×2 (06:01→15:04)
[2023-01-29 07:00] LABS: Alanine Aminotransferase 54 U/L (7-40); Albumin 3.6 g/dL (3.2-4.8); Alkaline Phosphatase 61 U/L (46-116); Anion Gap 6.9 (5-15); Aspartate Aminotransferase 56 U/L (13-40); BUN/Creatinine Ratio 18.5 (10.0-20.0); Bilirubin, Total 0.9 mg/dL (0.2-1.0); Blood Urea Nitrogen 22 mg/dL (9-23); Carbon Dioxide 26.1 mmol/L (20-30); Chloride 107 mmol/L (98-107); Glucose 122 mg/dL (74-106); Potassium 3.8 mmol/L (3.5-5.1); Sodium 140 mmol/L (136-145); Total Protein 5.9 g/dL (5.7-8.2)
[2023-01-29] MEDS ORDERED: EMPAGLIFLOZIN 10 MG TAB PO SCH (07:00)
[2023-01-29 07:01] LABS: Basophils # (auto) 0 10 ^3/uL (0-0.2); Eosinophils # (auto) 0.2 10 ^3/uL (0-0.8); Hematocrit 38.8 % (36.0-46.0); Monocytes # (auto) 0.6 10 ^3/uL (0-1.3); Neutrophils # (auto) 2.3 10 ^3/uL (1.6-8.6); Nucleated Red Blood Cells % 0.1 %; Red Blood Cells 3.78 10^6/uL (4.0-5.20); White Blood Cell 3.8 10^3/uL (4.4-10.8)
[2023-01-29 07:03] LABS: Eosinophils % (auto) 4.6 % (0.0-7.0); Lymphocytes # (auto) 0.7 10 ^3/uL (0.4-5.4); Lymphocytes % (auto) 19.3 % (10.0-50.0); Mean Corpuscular Hemoglobin 34.4 pg (28.0-32.0); Mean Corpuscular Hgb Conc. 33.5 g/dL (32.0-36.0); Mean Corpuscular Volume 102.8 fL (80.0-100.0); Monocytes % (auto) 15.3 % (0.0-12.0); Neutrophils % (auto) 59.8 % (37.0-80.0)
[2023-01-29 08:14] VITALS: PULSE 58
[2023-01-29 09:00] VITALS: BP 93/49; PULSE 79; RESP 17; TEMP 97.6; O2SAT 96
[2023-01-29 09:55] VITALS: O2SAT 100
[2023-01-29] MEDS ORDERED: JARDIANCE 25 MG PO SCH (10:29)
[2023-01-29] MEDS: ASPirin 81 mg TAB PO SCH (11:24)
[2023-01-29 13:00] VITALS: BP 130/81; PULSE 83; RESP 16; TEMP 97.6; O2SAT 98
[2023-01-29 16:11] VITALS: BP 114/72; PULSE 71; RESP 18; TEMP 36.4; O2SAT 97
== END 2023-01-29 17:50 | disposition home or self-care (01) | DRG 312 ==
LOC: ER 10:35 → TELE 13:48 → TELE-WESTW 22:43
PROVIDERS: ADMIT Internal Medicine
DX: I95.1 Orthostatic hypotension (principal); N17.9 Acute kidney failure, unspecified; I13.0 Hypertensive heart and chronic kidney disease with heart failure and stage 1 through stage 4 chronic kidney disease, or unspecified chronic kidney disease; Z68.41 Body mass index [BMI] 40.0-44.9, adult; I50.42 Chronic combined systolic (congestive) and diastolic (congestive) heart failure; D69.6 Thrombocytopenia, unspecified; N18.9 Chronic kidney disease, unspecified; E66.01 Morbid (severe) obesity due to excess calories; R74.01 Elevation of levels of liver transaminase levels; E86.0 Dehydration; J44.9 Chronic obstructive pulmonary disease, unspecified; M19.90 Unspecified osteoarthritis, unspecified site; I25.10 Atherosclerotic heart disease of native coronary artery without angina pectoris; M06.9 Rheumatoid arthritis, unspecified; R51.9 Headache, unspecified; R73.9 Hyperglycemia, unspecified; Z88.1 Allergy status to other antibiotic agents; Z86.73 Personal history of transient ischemic attack (TIA), and cerebral infarction without residual deficits; Z88.8 Allergy status to other drugs, medicaments and biological substances; Z91.018 Allergy to other foods; Z88.2 Allergy status to sulfonamides; Z95.810 Presence of automatic (implantable) cardiac defibrillator
CPT/HCPCS: 36415; 71045; 76705; 80053; 81001; 84443; 84484; 85025; 93005; 93306; 99291; G0378

== ENCOUNTER → 2023-04-27 | Outpatient (CLI) | payer OTHER ==
[~2023-04-27] MED LIST changes: -ALBU0.084 NEB; -CAR3125T PO; +EMPA1TAB3 PO; -LISI2.5T47 PO; +SACU1TAB7 PO
[2023-04-27 15:01] LABS: Basophils # (auto) 0 10 ^3/uL (0-0.2); Basophils % (auto) 0.7 % (0.0-2.0); Eosinophils # (auto) 0.1 10 ^3/uL (0-0.8); Eosinophils % (auto) 1.8 % (0.0-7.0); Hematocrit 41.3 % (36.0-46.0); Hemoglobin 13.8 g/dL (12.2-16.2); Lymphocytes # (auto) 1.1 10 ^3/uL (0.4-5.4); Lymphocytes % (auto) 21.1 % (10.0-50.0); Mean Corpuscular Hemoglobin 34.7 pg (28.0-32.0); Mean Corpuscular Hgb Conc. 33.4 g/dL (32.0-36.0); Monocytes # (auto) 0.5 10 ^3/uL (0-1.3); Monocytes % (auto) 9.4 % (0.0-12.0); Neutrophils # (auto) 3.5 10 ^3/uL (1.6-8.6); Nucleated Red Blood Cells % 0.1 %; Red Blood Cells 3.97 10^6/uL (4.0-5.20); Red Cell Distribution Width 15.2 % (11.8-14.3); White Blood Cell 5.2 10^3/uL (4.4-10.8)
[2023-04-27 15:48] LABS: Alanine Aminotransferase 90 U/L (7-40); Alkaline Phosphatase 74 U/L (46-116); Anion Gap 6 (5-15); Aspartate Aminotransferase 103 U/L (13-40); BUN/Creatinine Ratio 20.2 (10.0-20.0); Bilirubin, Total 0.5 mg/dL (0.2-1.0); Blood Urea Nitrogen 25 mg/dL (9-23); Calcium 9.5 mg/dL (8.5-10.1); Carbon Dioxide 27 mmol/L (20-30); Chloride 105 mmol/L (98-107); Glucose 127 mg/dL (74-106); Potassium 4.5 mmol/L (3.5-5.1); Sodium 138 mmol/L (136-145); Total Protein 6.6 g/dL (5.7-8.2)
[2023-04-27 16:56] LABS: Erythrocyte Sedimentation Rate 25 mm/hr (0-20)
[2023-04-28 07:08] LABS: Complement C3 144 mg/dL (82-167)
== END | disposition home or self-care (01) ==
LOC: LAB 14:48
PROVIDERS: ATTEND Internal Medicine Rheumatology
DX: M32.10 Systemic lupus erythematosus, organ or system involvement unspecified (principal); M05.79 Rheumatoid arthritis with rheumatoid factor of multiple sites without organ or systems involvement; Z79.899 Other long term (current) drug therapy
CPT/HCPCS: 36415; 80053; 85025; 85652; 86141; 86160

== ENCOUNTER → 2023-06-24 | Outpatient (CLI) | payer OTHER ==
[2023-06-24 12:14] LABS: Basophils # (auto) 0 10 ^3/uL (0-0.2); Basophils % (auto) 0.7 % (0.0-2.0); Eosinophils # (auto) 0.1 10 ^3/uL (0-0.8); Eosinophils % (auto) 1.6 % (0.0-7.0); Hematocrit 43.9 % (36.0-46.0); Hemoglobin 14.7 g/dL (12.2-16.2); Lymphocytes # (auto) 1.4 10 ^3/uL (0.4-5.4); Lymphocytes % (auto) 25.1 % (10.0-50.0); Mean Corpuscular Hemoglobin 33.6 pg (28.0-32.0); Mean Corpuscular Hgb Conc. 33.5 g/dL (32.0-36.0); Mean Corpuscular Volume 100.4 fL (80.0-100.0); Monocytes # (auto) 0.4 10 ^3/uL (0-1.3); Monocytes % (auto) 7.7 % (0.0-12.0); Neutrophils # (auto) 3.6 10 ^3/uL (1.6-8.6); Neutrophils % (auto) 64.9 % (37.0-80.0); Nucleated Red Blood Cells % 0.2 %; Red Blood Cells 4.37 10^6/uL (4.0-5.20); Red Cell Distribution Width 13.1 % (11.8-14.3); White Blood Cell 5.6 10^3/uL (4.4-10.8)
[2023-06-24 12:35] LABS: Alanine Aminotransferase 53 U/L (7-40); Alkaline Phosphatase 73 U/L (46-116); Anion Gap 5 (5-15); Aspartate Aminotransferase 77 U/L (13-40); BUN/Creatinine Ratio 16.5 (10.0-20.0); Blood Urea Nitrogen 20 mg/dL (9-23); Calcium 9.2 mg/dL (8.5-10.1); Carbon Dioxide 27 mmol/L (20-30); Chloride 107 mmol/L (98-107); Glucose 156 mg/dL (74-106); Potassium 4.4 mmol/L (3.5-5.1); Sodium 139 mmol/L (136-145)
[2023-06-24 12:36] LABS: Bilirubin, Total 0.7 mg/dL (0.2-1.0); Total Protein 6.9 g/dL (5.7-8.2)
[2023-06-24 12:46] LABS: Erythrocyte Sedimentation Rate 22 mm/hr (0-20)
== END | disposition home or self-care (01) ==
LOC: LAB 11:56
PROVIDERS: ATTEND Internal Medicine Rheumatology
DX: Z11.1 Encounter for screening for respiratory tuberculosis (principal); M05.79 Rheumatoid arthritis with rheumatoid factor of multiple sites without organ or systems involvement; Z79.899 Other long term (current) drug therapy
CPT/HCPCS: 36415; 80053; 85025; 85652; 86141

== ENCOUNTER → 2023-09-21 | Outpatient (CLI) | payer OTHER ==
[~2023-09-21] MED LIST changes: +POTA-215 PO; -POTA1TAB61 PO
[2023-09-21 11:46] LABS: Alanine Aminotransferase 24 U/L (7-40); Albumin 4.2 g/dL (3.2-4.8); Alkaline Phosphatase 62 U/L (46-116); Anion Gap 7 (5-15); Aspartate Aminotransferase 39 U/L (13-40); BUN/Creatinine Ratio 19.4 (10.0-20.0); Blood Urea Nitrogen 24 mg/dL (9-23); Calcium 9.5 mg/dL (8.7-10.4); Carbon Dioxide 26 mmol/L (20-30); Chloride 106 mmol/L (98-107); Glucose 144 mg/dL (74-106); Potassium 4.4 mmol/L (3.5-5.1); Sodium 139 mmol/L (136-145)
[2023-09-21 11:47] LABS: Bilirubin, Total 1.3 mg/dL (0.2-1.0)
== END | disposition home or self-care (01) ==
LOC: LAB 10:58
PROVIDERS: ATTEND Internal Medicine
DX: E11.22 Type 2 diabetes mellitus with diabetic chronic kidney disease (principal); N18.9 Chronic kidney disease, unspecified
CPT/HCPCS: 36415; 80053; 82306; 83036

== ENCOUNTER → 2023-11-02 | Outpatient (CLI) | payer OTHER | END | disposition home or self-care (01) | LOC: XYW 08:52 | PROVIDERS: ATTEND Internal Medicine | DX: R10.10 Upper abdominal pain, unspecified (principal) | CPT/HCPCS: 78226; A9537 ==

== ENCOUNTER 2023-11-07 07:16 | Emergency (ER) | payer OTHER ==
[~2023-11-07] VITALS: Ht 160 cm; Wt 106.1 kg
[2023-11-07 07:55] VITALS: BP 132/69; PULSE 92; RESP 16; TEMP 98; O2SAT 97
[2023-11-07] MEDS: FAMOTIDINE (10MG/ML) 2ML VL IV ONE (08:16)
[2023-11-07] MEDS: methylPREDNISolone SOD SUCC 125 MG/2 ML VL IV ONE (08:17)
[2023-11-07] MEDS ORDERED: FAMO20TA10 PO (09:41)
[2023-11-07] MEDS ORDERED: DIPH25CA66 PO (09:41)
[2023-11-07] MEDS ORDERED: PRED20TA2 PO (09:41)
[2023-11-07] MEDS ORDERED: FEXO-42 PO (09:41)
== END 2023-11-07 09:42 | disposition home or self-care (01) ==
LOC: ER 07:16
DX: L23.9 Allergic contact dermatitis, unspecified cause (principal); J45.909 Unspecified asthma, uncomplicated; N18.9 Chronic kidney disease, unspecified; I50.89 Other heart failure; I13.0 Hypertensive heart and chronic kidney disease with heart failure and stage 1 through stage 4 chronic kidney disease, or unspecified chronic kidney disease; Z86.73 Personal history of transient ischemic attack (TIA), and cerebral infarction without residual deficits; Z98.890 Other specified postprocedural states; Z91.013 Allergy to seafood; Z88.1 Allergy status to other antibiotic agents; Z88.2 Allergy status to sulfonamides; Z79.82 Long term (current) use of aspirin; Z79.899 Other long term (current) drug therapy
CPT/HCPCS: 96374; 96375; 99284; J2919; J3490

== ENCOUNTER → 2023-11-15 | Outpatient (CLI) | payer OTHER ==
[~2023-11-15] MED LIST changes: +DIPH25CA66 PO; +FAMO20TA10 PO; +FEXO-42 PO; +PRED20TA2 PO
[2023-11-15 09:50] LABS: Urine Bacteria None Seen /hpf (None Seen)
[2023-11-15 09:56] LABS: Basophils # (auto) 0 10 ^3/uL (0-0.2); Basophils % (auto) 0.7 % (0.0-2.0); Eosinophils # (auto) 0.2 10 ^3/uL (0-0.8); Hematocrit 43.3 % (36.0-46.0); Hemoglobin 15.1 g/dL (12.2-16.2); Lymphocytes # (auto) 1.6 10 ^3/uL (0.4-5.4); Lymphocytes % (auto) 26.9 % (10.0-50.0); Mean Corpuscular Hemoglobin 33.6 pg (28.0-32.0); Mean Corpuscular Hgb Conc. 34.9 g/dL (32.0-36.0); Mean Corpuscular Volume 96.3 fL (80.0-100.0); Monocytes # (auto) 0.4 10 ^3/uL (0-1.3); Monocytes % (auto) 6.9 % (0.0-12.0); Neutrophils # (auto) 3.6 10 ^3/uL (1.6-8.6); Neutrophils % (auto) 62.5 % (37.0-80.0); Nucleated Red Blood Cells % 0.1 %; Red Cell Distribution Width 13.4 % (11.8-14.3); White Blood Cell 5.8 10^3/uL (4.4-10.8)
[2023-11-15 10:01] LABS: Urine Blood Negative /uL (Negative); Urine Clarity Clear (Clear); Urine Color Yellow (Yellow); Urine Hyaline Cast FEW /lpf (0 - 2); Urine Mucus FEW (None Seen); Urine Protein, UAD TRACE (Negative); Urine Specific Gravity 1.023 (1.001-1.035); Urine Urobilinogen Normal (Negative); Urine WBC 10 /hpf (0 - 5)
[2023-11-15 10:29] LABS: Erythrocyte Sedimentation Rate 12 mm/hr (0-20)
[2023-11-15 10:31] LABS: Alanine Aminotransferase 44 U/L (7-40); Alkaline Phosphatase 73 U/L (46-116); Anion Gap 5 (5-15); Aspartate Aminotransferase 25 U/L (13-40); BUN/Creatinine Ratio 19.3 (10.0-20.0); Blood Urea Nitrogen 21 mg/dL (9-23); CRP High Sensitivity 0.06 mg/dL (<1.0); Calcium 9.3 mg/dL (8.5-10.1); Carbon Dioxide 27 mmol/L (20-30); Chloride 106 mmol/L (98-107); Glucose 189 mg/dL (74-106); Potassium 4.6 mmol/L (3.5-5.1); Sodium 138 mmol/L (136-145)
[2023-11-15 10:32] LABS: Bilirubin, Total 0.7 mg/dL (0.2-1.0); Total Protein 6.4 g/dL (5.7-8.2)
[2023-11-15 11:44] LABS: Protein, Urine 32.7 mg/dL (0.0-11.9)
[2023-11-15 11:47] LABS: Creatinine, Urine 230.31 mg/dL (30.0-125.0); Urine Protein/Creatinine Ratio 0.14
[2023-11-15 18:54] LABS: Free T4 (Free Thyroxine) 1.65 ng/dL (0.89-1.76)
[2023-11-16 08:06] LABS: Complement C3 134 mg/dL (82-167)
[2023-11-16 09:07] LABS: Anti-dsDNA Antibody <1 IU/mL (0-9)
== END | disposition home or self-care (01) ==
LOC: LAB 09:34
PROVIDERS: ATTEND Internal Medicine
DX: E11.22 Type 2 diabetes mellitus with diabetic chronic kidney disease (principal); N18.9 Chronic kidney disease, unspecified; E55.9 Vitamin D deficiency, unspecified; M32.10 Systemic lupus erythematosus, organ or system involvement unspecified; M05.79 Rheumatoid arthritis with rheumatoid factor of multiple sites without organ or systems involvement; Z79.899 Other long term (current) drug therapy
CPT/HCPCS: 36415; 80053; 81001; 82306; 82570; 82607; 83036; 84156; 84439; 84443; 85025; 85652; 86141; 86160; 86225; 87086

== ENCOUNTER 2023-11-20 07:46 | Inpatient (IN) | payer OTHER ==
[~2023-11-20] VITALS: Ht 160 cm; Wt 109.8 kg
[~2023-11-20 07:46] MED LIST changes: -FLUT1INH6 IN; +FLUT1INH6 INH
[2023-11-20] MEDS: SODIUM CHLORIDE 0.9% 1,000 ML IV ONE (08:53)
[2023-11-20 09:05] VITALS: PULSE 99; RESP 20; O2SAT 100
[2023-11-20 09:12] LABS: Basophils # (auto) 0 10 ^3/uL (0-0.2); Basophils % (auto) 0.5 % (0.0-2.0); Eosinophils # (auto) 0.1 10 ^3/uL (0-0.8); Eosinophils % (auto) 1.1 % (0.0-7.0); Hematocrit 39.1 % (36.0-46.0); Hemoglobin 13.3 g/dL (12.2-16.2); Lymphocytes # (auto) 0.8 10 ^3/uL (0.4-5.4); Lymphocytes % (auto) 12.9 % (10.0-50.0); Mean Corpuscular Hemoglobin 33.3 pg (28.0-32.0); Mean Corpuscular Hgb Conc. 34.1 g/dL (32.0-36.0); Mean Corpuscular Volume 97.6 fL (80.0-100.0); Monocytes # (auto) 0.5 10 ^3/uL (0-1.3); Monocytes % (auto) 8.9 % (0.0-12.0); Neutrophils # (auto) 4.7 10 ^3/uL (1.6-8.6); Neutrophils % (auto) 76.6 % (37.0-80.0); Nucleated Red Blood Cells % 0.1 %; Red Blood Cells 4.01 10^6/uL (4.0-5.20); Red Cell Distribution Width 13.2 % (11.8-14.3); White Blood Cell 6.2 10^3/uL (4.4-10.8)
[2023-11-20 09:27] LABS: Alanine Aminotransferase 20 U/L (7-40); Albumin 3.8 g/dL (3.2-4.8); Alkaline Phosphatase 70 U/L (46-116); Anion Gap 7 (5-15); Aspartate Aminotransferase 23 U/L (13-40); BUN/Creatinine Ratio 18.1 (10.0-20.0); Blood Urea Nitrogen 25 mg/dL (9-23); Calcium 8.8 mg/dL (8.5-10.1); Carbon Dioxide 23 mmol/L (20-30); Chloride 109 mmol/L (98-107); Glucose 200 mg/dL (74-106); Potassium 4.9 mmol/L (3.5-5.1); Sodium 139 mmol/L (136-145)
[2023-11-20 09:28] LABS: Bilirubin, Total 0.5 mg/dL (0.2-1.0); Total Protein 6.1 g/dL (5.7-8.2)
[2023-11-20 09:30] LABS: INR 0.96 (0.9-1.15); Partial Thromboplastin Time 24.8 SEC (24.5-34.5); Prothrombin Time 10.2 sec (9.3-11.8)
[2023-11-20] MEDS: MORPHINE SULFATE INJ 2 MG/ml SYRG IV ONE (13:29)
[2023-11-20] MEDS: ONDANSETRON HCL 4 MG/2 ML VIAL IV ONE (13:29)
[2023-11-20 14:49] LABS: Urine Bacteria None Seen /hpf (None Seen)
[2023-11-20 15:02] LABS: Urine Blood Negative /uL (Negative); Urine Clarity Clear (Clear); Urine Color Light-Yellow (Yellow); Urine Protein, UAD Negative (Negative); Urine Specific Gravity 1.021 (1.001-1.035); Urine Urobilinogen Normal (Negative); Urine WBC <1 /hpf (0 - 5)
[2023-11-20] MEDS: SODIUM CHLORIDE 0.9% 500 ML IV ONE (16:52)
[2023-11-20] MEDS ORDERED: ACETAMINOPHEN 325 MG TAB PO PRN (17:00)
[2023-11-20] MEDS ORDERED: ALBUTEROL SULF 2.5 MG/0.5ML(0.5%) NEB SOLN NEB PRN (17:00)
[2023-11-20] MEDS ORDERED: MORPHINE SULFATE INJ 2 MG/ml SYRG IV PRN (17:00)
[2023-11-20] MEDS ORDERED: NITROGLYCERIN 0.4 MG SL TAB SL PRN (17:00)
[2023-11-20 17:10] LABS: Triglycerides 198 mg/dL (< 150)
[2023-11-20 17:11] LABS: LDL Cholesterol 110 mg/dL (< 100)
[2023-11-20 17:12] LABS: HDL Cholesterol 42 mg/dL (40-59)
[2023-11-20 17:13] LABS: Cholesterol 171 mg/dL (< 200)
[2023-11-20 17:14] LABS: Amphetamine Screen, Urine Neg (NEGATIVE); Barbiturate Scree,Urine Neg (NEGATIVE); Benzodiazephine Screen, Urine Neg (NEGATIVE)
[2023-11-20 17:15] LABS: Cannabinoid Screen, Urine Neg (NEGATIVE); Cocaine Screen, Urine Neg (NEGATIVE); Opiate Scree,Urine Neg (NEGATIVE); Phencyclidine Screen, Urine Neg (NEGATIVE)
[2023-11-20] MEDS: IOHEXOL 350 MG/ML 100ML IJ ONE (17:18)
[2023-11-20 20:41] VITALS: PULSE 82; RESP 15; O2SAT 98
[2023-11-20 21:20] VITALS: O2SAT 98
[2023-11-20 21:22] VITALS: BP 97/44; PULSE 94; RESP 14; TEMP 98.8; O2SAT 98
[2023-11-20 22:57] VITALS: BP 106/47; PULSE 82; RESP 18; TEMP 98.1; O2SAT 97
[2023-11-21] VITALS (13 sets, daily range): BP systolic 90–106; BP diastolic 44–66; PULSE 20–82; RESP 16–51; TEMP 97.5–98.1; O2SAT 96–99
[2023-11-21 05:59] LABS: Basophils # (auto) 0 10 ^3/uL (0-0.2); Basophils % (auto) 0.5 % (0.0-2.0); Eosinophils # (auto) 0.1 10 ^3/uL (0-0.8); Eosinophils % (auto) 2.7 % (0.0-7.0); Hematocrit 35.4 % (36.0-46.0); Hemoglobin 12.3 g/dL (12.2-16.2); Lymphocytes % (auto) 23.4 % (10.0-50.0); Mean Corpuscular Hemoglobin 33.9 pg (28.0-32.0); Mean Corpuscular Hgb Conc. 34.9 g/dL (32.0-36.0); Mean Corpuscular Volume 97.3 fL (80.0-100.0); Monocytes # (auto) 0.5 10 ^3/uL (0-1.3); Monocytes % (auto) 10.5 % (0.0-12.0); Neutrophils # (auto) 2.8 10 ^3/uL (1.6-8.6); Neutrophils % (auto) 62.9 % (37.0-80.0); Red Blood Cells 3.64 10^6/uL (4.0-5.20); Red Cell Distribution Width 13.1 % (11.8-14.3); White Blood Cell 4.5 10^3/uL (4.4-10.8)
[2023-11-21 06:17] LABS: Alanine Aminotransferase 16 U/L (7-40); Albumin 3.4 g/dL (3.2-4.8); Alkaline Phosphatase 51 U/L (46-116); Anion Gap 3 (5-15); Aspartate Aminotransferase 22 U/L (13-40); BUN/Creatinine Ratio 22.8 (10.0-20.0); Bilirubin, Total 0.7 mg/dL (0.2-1.0); Blood Urea Nitrogen 23 mg/dL (9-23); Calcium 8.8 mg/dL (8.7-10.4); Carbon Dioxide 27 mmol/L (20-30); Chloride 111 mmol/L (98-107); Glucose 143 mg/dL (74-106); Potassium 4.4 mmol/L (3.5-5.1); Sodium 141 mmol/L (136-145); Total Protein 5.6 g/dL (5.7-8.2)
[2023-11-21] MEDS: HYDROcodone-ACET 5/325MG TAB PO PRN (09:57)
[2023-11-21] MEDS: ENOXAPARIN SOD 40 MG/0.4 ML SYRINGE SC SCH (09:57)
[2023-11-21] MEDS ORDERED: ENOXAPARIN SOD 40 MG/0.4 ML SYRINGE SC SCH (10:00)
[2023-11-22] VITALS (12 sets, daily range): BP systolic 89–149; BP diastolic 48–75; PULSE 68–86; RESP 16–20; TEMP 97.2–98.4; O2SAT 10–99
[2023-11-22] MEDS: AMIODARONE HCL 200 MG TAB PO ONE (13:44)
[2023-11-22] MEDS: SACUBITRIL-VALSARTAN 24mg/26mg TAB PO ONE (13:44)
[2023-11-22] MEDS ORDERED: ALBU108A5 INH (17:01)
[2023-11-22] MEDS ORDERED: SACU1TAB PO (17:01)
[2023-11-22] MEDS ORDERED: EMPA1TAB PO (17:01)
[2023-11-22] MEDS ORDERED: PRED20TA2 PO (17:09)
[2023-11-22] MEDS ORDERED: HYD1TP TOP (17:09)
[2023-11-22] MEDS ORDERED: METO25TA93 PO (17:09)
[2023-11-22] MEDS ORDERED: PRED1SUS4 RIGHTEYE (17:09)
[2023-11-22] MEDS ORDERED: ETAN50IN10 SUBCUT (17:09)
[2023-11-22] MEDS ORDERED: ERGO1CAP12 PO (17:09)
[2023-11-22] MEDS ORDERED: ALEN70TA74 PO (17:09)
[2023-11-22] MEDS: ACETAMINOPHEN 325 MG TAB PO PRN (20:31)
[2023-11-22] MEDS: AMIODARONE HCL 200 MG TAB PO SCH (21:41)
[2023-11-22] MEDS: SACUBITRIL-VALSARTAN 24mg/26mg TAB PO SCH (21:41)
[2023-11-22] MEDS: HYDROCORTONE 1% TOPICAL CREAM 30 GM TUBE TOP SCH (22:00)
[2023-11-22 22:12] LABS: INR 0.97 (0.9-1.15); Prothrombin Time 10.3 sec (9.3-11.8)
[2023-11-23] VITALS (14 sets, daily range): BP systolic 104–123; BP diastolic 47–74; PULSE 66–90; RESP 16–20; TEMP 97.7–98.6; O2SAT 95–99
[2023-11-23] MEDS: ATORVASTATIN 20 MG TAB PO SCH (22:00)
[2023-11-23] MEDS: SODIUM CHLORIDE 0.9% 1,000 ML IV SCH (23:29)
[2023-11-24] VITALS (14 sets, daily range): BP systolic 110–152; BP diastolic 56–85; PULSE 68–89; RESP 12–18; TEMP 97.5–98.4; O2SAT 95–98
[2023-11-24 07:30] LABS: Basophils # (auto) 0 10 ^3/uL (0-0.2); Basophils % (auto) 0.6 % (0.0-2.0); Eosinophils # (auto) 0.1 10 ^3/uL (0-0.8); Eosinophils % (auto) 3.7 % (0.0-7.0); Hematocrit 38.8 % (36.0-46.0); Hemoglobin 13.1 g/dL (12.2-16.2); Lymphocytes % (auto) 26.4 % (10.0-50.0); Mean Corpuscular Hemoglobin 32.7 pg (28.0-32.0); Mean Corpuscular Hgb Conc. 33.7 g/dL (32.0-36.0); Mean Corpuscular Volume 97.1 fL (80.0-100.0); Monocytes # (auto) 0.3 10 ^3/uL (0-1.3); Monocytes % (auto) 7.4 % (0.0-12.0); Neutrophils # (auto) 2.3 10 ^3/uL (1.6-8.6); Neutrophils % (auto) 61.9 % (37.0-80.0); Nucleated Red Blood Cells % 0.1 %; Red Blood Cells 3.99 10^6/uL (4.0-5.20); Red Cell Distribution Width 12.8 % (11.8-14.3); White Blood Cell 3.7 10^3/uL (4.4-10.8)
[2023-11-24 07:43] LABS: INR 0.97 (0.9-1.15); Partial Thromboplastin Time 27.2 SEC (24.5-34.5); Prothrombin Time 10.3 sec (9.3-11.8)
[2023-11-24 07:44] LABS: Alanine Aminotransferase 15 U/L (7-40); Albumin 3.8 g/dL (3.2-4.8); Alkaline Phosphatase 59 U/L (46-116); Anion Gap 1 (5-15); Aspartate Aminotransferase 20 U/L (13-40); Bilirubin, Total 0.8 mg/dL (0.2-1.0); Blood Urea Nitrogen 13 mg/dL (9-23); Calcium 9.2 mg/dL (8.5-10.1); Carbon Dioxide 31 mmol/L (20-30); Chloride 109 mmol/L (98-107); Glucose 132 mg/dL (74-106); Potassium 4.2 mmol/L (3.5-5.1); Sodium 141 mmol/L (136-145)
[2023-11-24] MEDS: VANCOMYCIN HCL 1000 MG VL ONE (08:06)
[2023-11-24] MEDS: MIDAZOLAM HCL 2MG/2ML 2ml VIAL (1mg/ml) ONE (08:06)
[2023-11-24] MEDS: fentaNYL CITRATE 100 MCG/2 ML VL ONE (08:06)
[2023-11-24] MEDS: VANCOMYCIN 1GM/200ML 200 ML IV ONE (08:07)
[2023-11-24] MEDS: LIDOCAINE 2%HCL (LOCAL ANESTH.) INJ 20ML MDV ONE (08:07)
[2023-11-24] MEDS: IOHEXOL 350 MG/ML 100ML IJ ONE (08:16)
[2023-11-24] MEDS ORDERED: diphenhdrAMINE HCL 50 MG/1 ML VL IM ONE (14:30)
[2023-11-24] MEDS: methylPREDNISolone SOD SUCC 40 MG/ML VL IV ONE (14:54)
[2023-11-24] MEDS: diphenhdrAMINE HCL 25 MG CAP PO ONE (14:54)
[2023-11-24] MEDS: CEPHALEXIN 250 MG CAP PO SCH (19:54)
[2023-11-25] VITALS (11 sets, daily range): BP systolic 107–139; BP diastolic 54–72; PULSE 68–91; RESP 14–19; TEMP 97.5–98.8; O2SAT 93–98
[2023-11-25] MEDS: diphenhdrAMINE HCL 25 MG CAP PO PRN (18:00)
[2023-11-26] VITALS (12 sets, daily range): BP systolic 104–121; BP diastolic 50–64; PULSE 77–86; RESP 18–20; TEMP 97.6–98.8; O2SAT 96–100
[2023-11-27] VITALS (9 sets, daily range): BP systolic 90–114; BP diastolic 49–55; PULSE 68–95; RESP 18–22; TEMP 97.6–98.1; O2SAT 93–100
[2023-11-28 05:00] VITALS: BP 115/49; PULSE 63; RESP 17; TEMP 97.5; O2SAT 98
[2023-11-28 08:00] VITALS: PULSE 76
[2023-11-28 08:20] VITALS: BP 100/55; PULSE 72; RESP 18; TEMP 98.3; O2SAT 98
[2023-11-28 10:00] VITALS: PULSE 76
[2023-11-28 10:23] VITALS: O2SAT 98
== END 2023-11-28 12:30 | disposition short-term general hospital (02) | DRG 280 ==
LOC: ER 07:46 → EDBD 07:46 → TELE 16:51 → TELE-WESTW 22:55
PROVIDERS: ADMIT Nurse Practitioner Family; ATTEND Internal Medicine
PROC: 4B02XTZ Measurement of Cardiac Defibrillator, External Approach (ICD-10-PCS; principal; 2023-11-20)
PROC: B5171ZA Fluoroscopy of Left Subclavian Vein using Low Osmolar Contrast, Guidance (ICD-10-PCS; 2023-11-24)
PROC: B5181ZA Fluoroscopy of Superior Vena Cava using Low Osmolar Contrast, Guidance (ICD-10-PCS; 2023-11-24)
DX: T82.110A Breakdown (mechanical) of cardiac electrode, initial encounter (principal); I50.43 Acute on chronic combined systolic (congestive) and diastolic (congestive) heart failure; I21.A1 Myocardial infarction type 2; I13.0 Hypertensive heart and chronic kidney disease with heart failure and stage 1 through stage 4 chronic kidney disease, or unspecified chronic kidney disease; Z68.41 Body mass index [BMI] 40.0-44.9, adult; I42.8 Other cardiomyopathies; I47.20 Ventricular tachycardia, unspecified; E11.22 Type 2 diabetes mellitus with diabetic chronic kidney disease; E66.01 Morbid (severe) obesity due to excess calories; M06.9 Rheumatoid arthritis, unspecified; J44.89 Other specified chronic obstructive pulmonary disease; M32.9 Systemic lupus erythematosus, unspecified; N18.9 Chronic kidney disease, unspecified; Z88.1 Allergy status to other antibiotic agents; Z90.710 Acquired absence of both cervix and uterus; Z86.73 Personal history of transient ischemic attack (TIA), and cerebral infarction without residual deficits; Z95.810 Presence of automatic (implantable) cardiac defibrillator; Z83.3 Family history of diabetes mellitus; Z87.440 Personal history of urinary (tract) infections; Z79.4 Long term (current) use of insulin; W18.39XA Other fall on same level, initial encounter; Y93.89 Activity, other specified; Y92.89 Other specified places as the place of occurrence of the external cause; Y99.8 Other external cause status; Y84.8 Other medical procedures as the cause of abnormal reaction of the patient, or of later complication, without mention of misadventure at the time of the procedure
CPT/HCPCS: 36010; 36415; 71045; 75827; 80053; 80061; 80307; 81001; 83735; 83880; 83930; 84443; 84484; 85025; 85379; 85610; 85730; 86850; 86900; 86901; 93005; 93306; 99152; C1769; G0378; J2250; J2405

== ENCOUNTER 2024-01-14 12:31 | Inpatient (IN) | payer OTHER ==
[~2024-01-14] VITALS: Ht 160 cm; Wt 98.0 kg
[~2024-01-14 12:31] MED LIST changes: +ALBU108A5 INH; -ALBU18 IN; +ALEN70TA74 PO; +EMPA1TAB PO; -EMPA1TAB3 PO; +ERGO1CAP12 PO; +ETAN50IN10 SUBCUT; +HYD1TP TOP; +METO25TA93 PO; +PRED1SUS4 RIGHTEYE; +SACU1TAB PO; -SACU1TAB7 PO
[2024-01-14 12:45] VITALS: PULSE 79; RESP 13; O2SAT 95
[2024-01-14 13:47] LABS: Basophils # (auto) 0 10 ^3/uL (0-0.2); Basophils % (auto) 0.6 % (0.0-2.0); Eosinophils # (auto) 0.2 10 ^3/uL (0-0.8); Eosinophils % (auto) 3.8 % (0.0-7.0); Hematocrit 37.8 % (36.0-46.0); Lymphocytes % (auto) 24.1 % (10.0-50.0); Mean Corpuscular Hgb Conc. 34.5 g/dL (32.0-36.0); Mean Corpuscular Volume 98.6 fL (80.0-100.0); Monocytes # (auto) 0.4 10 ^3/uL (0-1.3); Monocytes % (auto) 8.5 % (0.0-12.0); Neutrophils # (auto) 2.7 10 ^3/uL (1.6-8.6); Platelet Count (auto) 139 10^3/uL (140-450); Red Blood Cells 3.83 10^6/uL (4.0-5.20); Red Cell Distribution Width 13.6 % (11.8-14.3); White Blood Cell 4.3 10^3/uL (4.4-10.8)
[2024-01-14 13:55] LABS: Chloride 107 mmol/L (98-107); Potassium 4.4 mmol/L (3.5-5.1); Sodium 139 mmol/L (136-145)
[2024-01-14 13:56] LABS: Anion Gap 7 (5-15); Calcium 9.6 mg/dL (8.7-10.4); Carbon Dioxide 25 mmol/L (20-30)
[2024-01-14 14:01] LABS: BUN/Creatinine Ratio 24.2 (10.0-20.0); Blood Urea Nitrogen 29 mg/dL (9-23); Glucose 184 mg/dL (74-106)
[2024-01-14] MEDS: FUROSEMIDE 40 MG/4 ML VIAL IV ONE (16:43)
[2024-01-14 17:13] LABS: Urine Bacteria FEW /hpf (None Seen); Urine Blood Negative /uL (Negative); Urine Clarity Clear (Clear); Urine Color Light-Yellow (Yellow); Urine Mucus FEW (None Seen); Urine Protein, UAD Negative (Negative); Urine Urobilinogen Normal (Negative); Urine WBC 32 /hpf (0 - 5); Urine pH 5.5 (5.0-9.0)
[2024-01-14] MEDS ORDERED: ONDANSETRON HCL 4 MG/2 ML VIAL IV PRN (17:15)
[2024-01-14] MEDS ORDERED: NITROGLYCERIN 0.4 MG SL TAB SL PRN (17:15)
[2024-01-14] MEDS ORDERED: MORPHINE SULFATE INJ 2 MG/ml SYRG IV PRN (17:15)
[2024-01-14 19:30] VITALS: PULSE 87; RESP 12; O2SAT 97
[2024-01-14 22:10] VITALS: BP 123/72; PULSE 81; RESP 18; TEMP 97.8
[2024-01-14] MEDS: AMIODARONE HCL 200 MG TAB PO SCH (22:45)
[2024-01-14] MEDS: SACUBITRIL-VALSARTAN 24mg/26mg TAB PO SCH (22:46)
[2024-01-14] MEDS: ACETAMINOPHEN 325 MG TAB PO PRN (23:36)
[2024-01-15 01:00] VITALS: BP 108/59; PULSE 70; RESP 18; TEMP 97.7; O2SAT 95
[2024-01-15 05:10] VITALS: BP 109/59; PULSE 69; RESP 17; TEMP 97.8; O2SAT 96
[2024-01-15 06:43] LABS: Basophils # (auto) 0 10 ^3/uL (0-0.2); Eosinophils # (auto) 0.3 10 ^3/uL (0-0.8); Monocytes # (auto) 0.4 10 ^3/uL (0-1.3); Red Blood Cells 3.71 10^6/uL (4.0-5.20); Red Cell Distribution Width 13.7 % (11.8-14.3)
[2024-01-15 06:47] LABS: Basophils % (auto) 0.8 % (0.0-2.0); Eosinophils % (auto) 6.6 % (0.0-7.0); Hemoglobin 12.7 g/dL (12.2-16.2); Lymphocytes # (auto) 1.2 10 ^3/uL (0.4-5.4); Lymphocytes % (auto) 31.6 % (10.0-50.0); Mean Corpuscular Hemoglobin 34.2 pg (28.0-32.0); Mean Corpuscular Hgb Conc. 35.2 g/dL (32.0-36.0); Mean Corpuscular Volume 97.1 fL (80.0-100.0); Monocytes % (auto) 9.8 % (0.0-12.0); Neutrophils % (auto) 51.2 % (37.0-80.0); Platelet Count (auto) 120 10^3/uL (140-450)
[2024-01-15 06:54] LABS: Chloride 106 mmol/L (98-107); Sodium 139 mmol/L (136-145)
[2024-01-15 06:55] LABS: Anion Gap 6 (5-15); Calcium 9.7 mg/dL (8.7-10.4); Carbon Dioxide 27 mmol/L (20-30)
[2024-01-15 07:00] LABS: BUN/Creatinine Ratio 17.7 (10.0-20.0); Blood Urea Nitrogen 22 mg/dL (9-23); Glucose 133 mg/dL (74-106)
[2024-01-15 08:00] VITALS: PULSE 72; PULSE 84; RESP 18; O2SAT 95
[2024-01-15] MEDS: cefTRIAXone 1GM/50ML D5W 50 ML IV SCH (08:39)
[2024-01-15] MEDS: FUROSEMIDE 40 MG TAB PO SCH (08:39)
[2024-01-15] MEDS: ENOXAPARIN SOD 40 MG/0.4 ML SYRINGE SC SCH (08:40)
[2024-01-15] MEDS: METOPROLOL SUCCINATE XL 50 MG TAB PO SCH (08:40)
[2024-01-15] MEDS: EMPAGLIFLOZIN 10 MG TAB PO SCH (08:49)
[2024-01-15 09:00] VITALS: BP 98/62; PULSE 72; RESP 16; TEMP 98.9; O2SAT 94
[2024-01-15] MEDS ORDERED: FUROSEMIDE 20 MG TAB PO SCH (10:00)
[2024-01-15] MEDS: SACUBITRIL-VALSARTAN 24mg/26mg TAB PO SCH (12:33)
[2024-01-15 13:00] VITALS: BP 121/75; PULSE 78; RESP 18; TEMP 98.2; O2SAT 96
[2024-01-15 15:42] VITALS: BP 121/75; PULSE 78; RESP 18; TEMP 98.2; O2SAT 96
[2024-01-15] MEDS ORDERED: NITR50CA24 PO (16:11)
== END 2024-01-15 17:00 | disposition home or self-care (01) | DRG 314 ==
LOC: ER 12:31 → EDBD 12:31 → EDUNIT# 12:31 → TELE-WESTW 14:20 → TELE 17:16 → TELE-WESTW 22:00
PROVIDERS: ADMIT Nurse Practitioner; ATTEND Nurse Practitioner
DX: T82.118A Breakdown (mechanical) of other cardiac electronic device, initial encounter (principal); N17.0 Acute kidney failure with tubular necrosis; I13.0 Hypertensive heart and chronic kidney disease with heart failure and stage 1 through stage 4 chronic kidney disease, or unspecified chronic kidney disease; I50.22 Chronic systolic (congestive) heart failure; J44.9 Chronic obstructive pulmonary disease, unspecified; Y71.2 Prosthetic and other implants, materials and accessory cardiovascular devices associated with adverse incidents; E66.01 Morbid (severe) obesity due to excess calories; N18.9 Chronic kidney disease, unspecified; E11.22 Type 2 diabetes mellitus with diabetic chronic kidney disease; Z88.2 Allergy status to sulfonamides; Z88.1 Allergy status to other antibiotic agents; Z91.013 Allergy to seafood; Z86.73 Personal history of transient ischemic attack (TIA), and cerebral infarction without residual deficits; Z95.810 Presence of automatic (implantable) cardiac defibrillator; Z98.51 Tubal ligation status; Z83.3 Family history of diabetes mellitus; Z63.4 Disappearance and death of family member; Z79.84 Long term (current) use of oral hypoglycemic drugs; Z79.82 Long term (current) use of aspirin; Z68.38 Body mass index [BMI] 38.0-38.9, adult
CPT/HCPCS: 36415; 71045; 80048; 81001; 83880; 84484; 85025; 93005; G0378

== ENCOUNTER 2024-02-26 15:48 | Inpatient (IN) | payer OTHER ==
[~2024-02-26] VITALS: Ht 160 cm; Wt 106.6 kg
[~2024-02-26 15:48] MED LIST changes: -CYAN1TAB14 PO; -EMPA1TAB PO; -FAMO20TA10 PO; -FEXO-42 PO; -FOLI-119 PO; -METH2.5T PO; +NITR50CA24 PO; -PRED1SUS4 RIGHTEYE; -PRED20TA2 PO
[2024-02-26] MEDS: ASPirin 81 mg TAB PO ONE (16:23)
[2024-02-26 16:24] VITALS: PULSE 70; RESP 18; O2SAT 95
[2024-02-26 16:49] LABS: Basophils # (auto) 0 10 ^3/uL (0-0.2); Basophils % (auto) 0.5 % (0.0-2.0); Eosinophils # (auto) 0.1 10 ^3/uL (0-0.8); Hematocrit 39.2 % (36.0-46.0); Hemoglobin 13.8 g/dL (12.2-16.2); Lymphocytes # (auto) 1.7 10 ^3/uL (0.4-5.4); Lymphocytes % (auto) 32.6 % (10.0-50.0); Mean Corpuscular Hemoglobin 33.3 pg (28.0-32.0); Mean Corpuscular Hgb Conc. 35.2 g/dL (32.0-36.0); Mean Corpuscular Volume 94.4 fL (80.0-100.0); Monocytes # (auto) 0.4 10 ^3/uL (0-1.3); Monocytes % (auto) 7.2 % (0.0-12.0); Neutrophils # (auto) 3.1 10 ^3/uL (1.6-8.6); Neutrophils % (auto) 57.7 % (37.0-80.0); Nucleated Red Blood Cells % 0.2 %; Platelet Count (auto) 151 10^3/uL (140-450); Red Blood Cells 4.15 10^6/uL (4.0-5.20); Red Cell Distribution Width 13.1 % (11.8-14.3); White Blood Cell 5.3 10^3/uL (4.4-10.8)
[2024-02-26 17:05] LABS: Urine Bacteria None Seen /hpf (None Seen)
[2024-02-26 17:06] LABS: INR 0.98 (0.9-1.15); Partial Thromboplastin Time 27.8 SEC (24.5-34.5); Prothrombin Time 10.4 sec (9.3-11.8)
[2024-02-26 17:11] LABS: Alanine Aminotransferase 14 U/L (7-40); Alkaline Phosphatase 74 U/L (46-116); Anion Gap 9 (5-15); Aspartate Aminotransferase 21 U/L (13-40); BUN/Creatinine Ratio 26.8 (10.0-20.0); Blood Urea Nitrogen 34 mg/dL (9-23); Calcium 9.5 mg/dL (8.7-10.4); Carbon Dioxide 24 mmol/L (20-31); Chloride 104 mmol/L (98-107); Glucose 144 mg/dL (74-106); Magnesium 1.9 mg/dL (1.6-2.6); Sodium 137 mmol/L (136-145)
[2024-02-26 17:12] LABS: Albumin 4.3 g/dL (3.2-4.8); Bilirubin, Total 0.6 mg/dL (0.2-1.0); Total Protein 6.5 g/dL (5.7-8.2)
[2024-02-26 17:28] LABS: Urine Blood Negative /uL (Negative); Urine Clarity Clear (Clear); Urine Color Light-Yellow (Yellow); Urine Hyaline Cast FEW /lpf (0 - 2); Urine Protein, UAD Negative (Negative); Urine Specific Gravity 1.016 (1.001-1.035); Urine Urobilinogen Normal (Negative); Urine WBC 2 /hpf (0 - 5)
[2024-02-26 19:17] VITALS: PULSE 65; RESP 10; O2SAT 98
[2024-02-26] MEDS ORDERED: MORPHINE SULFATE INJ 2 MG/ml SYRG IV PRN (21:45)
[2024-02-26] MEDS ORDERED: ACETAMINOPHEN 325 MG TAB PO PRN (21:45)
[2024-02-26] MEDS ORDERED: ONDANSETRON HCL 4 MG/2 ML VIAL IV PRN (21:45)
[2024-02-26] MEDS ORDERED: DOCUSATE SOD 100 MG CAP PO PRN (21:45)
[2024-02-26] MEDS ORDERED: NITROGLYCERIN 0.4 MG SL TAB SL PRN (21:45)
[2024-02-26] MEDS ORDERED: FURO40TA4 PO (21:49)
[2024-02-26] MEDS: SACUBITRIL-VALSARTAN 24mg/26mg TAB PO SCH (22:16)
[2024-02-26] MEDS: SODIUM CHLOR 0.9% PF (SALINE LOCK) 10ML VIAL/SYR IV SCH (22:18)
[2024-02-26 23:55] VITALS: BP 112/54; PULSE 59; RESP 20; TEMP 97.5; O2SAT 96
[2024-02-27] VITALS (8 sets, daily range): BP systolic 113–132; BP diastolic 58–75; PULSE 59–74; RESP 15–20; TEMP 97.4–98.4; O2SAT 97–100
[2024-02-27] MEDS: HYDROcodone-ACET 5/325MG TAB PO PRN (01:33)
[2024-02-27 06:44] LABS: Basophils # (auto) 0 10 ^3/uL (0-0.2); Basophils % (auto) 0.5 % (0.0-2.0); Eosinophils # (auto) 0.2 10 ^3/uL (0-0.8); Eosinophils % (auto) 4.1 % (0.0-7.0); Hematocrit 36.5 % (36.0-46.0); Lymphocytes # (auto) 1.8 10 ^3/uL (0.4-5.4); Lymphocytes % (auto) 39.9 % (10.0-50.0); Mean Corpuscular Hemoglobin 33.8 pg (28.0-32.0); Mean Corpuscular Hgb Conc. 35.6 g/dL (32.0-36.0); Mean Corpuscular Volume 94.9 fL (80.0-100.0); Monocytes # (auto) 0.4 10 ^3/uL (0-1.3); Monocytes % (auto) 8.2 % (0.0-12.0); Neutrophils # (auto) 2.2 10 ^3/uL (1.6-8.6); Neutrophils % (auto) 47.3 % (37.0-80.0); Nucleated Red Blood Cells % 0.3 %; Platelet Count (auto) 129 10^3/uL (140-450); Red Blood Cells 3.85 10^6/uL (4.0-5.20); Red Cell Distribution Width 12.6 % (11.8-14.3); White Blood Cell 4.6 10^3/uL (4.4-10.8)
[2024-02-27 06:56] LABS: Alanine Aminotransferase 11 U/L (7-40); Albumin 3.9 g/dL (3.2-4.8); Alkaline Phosphatase 53 U/L (46-116); Anion Gap 6 (5-15); Aspartate Aminotransferase 21 U/L (13-40); BUN/Creatinine Ratio 20.9 (10.0-20.0); Blood Urea Nitrogen 23 mg/dL (9-23); Calcium 9.6 mg/dL (8.7-10.4); Carbon Dioxide 25 mmol/L (20-31); Chloride 109 mmol/L (98-107); Glucose 104 mg/dL (74-106); Potassium 4.1 mmol/L (3.5-5.1); Sodium 140 mmol/L (136-145)
[2024-02-27 06:57] LABS: Bilirubin, Total 0.6 mg/dL (0.2-1.0); Total Protein 6.2 g/dL (5.7-8.2)
[2024-02-27] MEDS: FLUTICASONE-VILANTEROL 100-25mCg INHALER IN SCH (10:00)
[2024-02-27] MEDS: METOPROLOL SUCCINATE XL 50 MG TAB PO SCH (10:46)
[2024-02-27] MEDS: ASPirin 81 mg TAB PO SCH (10:46)
[2024-02-27 18:20] LABS: Triglycerides 103 mg/dL (< 150)
[2024-02-27 18:21] LABS: LDL Cholesterol 118 mg/dL (< 100)
[2024-02-27 18:22] LABS: Cholesterol 174 mg/dL (< 200); HDL Cholesterol 43 mg/dL (40-59)
[2024-02-27] MEDS: ENOXAPARIN SOD 40 MG/0.4 ML SYRINGE SC ONE (21:31)
[2024-02-27] MEDS: SACUBITRIL-VALSARTAN 24mg/26mg TAB PO SCH (23:47)
[2024-02-28] MEDS: LORazepam 0.5 MG TAB PO PRN (01:35)
[2024-02-28 05:00] VITALS: BP 120/45; PULSE 58; RESP 20; TEMP 97.8; O2SAT 98
[2024-02-28 07:07] LABS: Anion Gap 4 (5-15); Carbon Dioxide 28 mmol/L (20-31); Chloride 108 mmol/L (98-107); Potassium 4.2 mmol/L (3.5-5.1); Sodium 140 mmol/L (136-145)
[2024-02-28 07:09] LABS: Calcium 9.7 mg/dL (8.7-10.4)
[2024-02-28 07:13] LABS: BUN/Creatinine Ratio 15.1 (10.0-20.0); Blood Urea Nitrogen 16 mg/dL (9-23); Glucose 101 mg/dL (74-106)
[2024-02-28 07:31] LABS: Basophils # (auto) 0 10 ^3/uL (0-0.2); Basophils % (auto) 0.7 % (0.0-2.0); Eosinophils # (auto) 0.2 10 ^3/uL (0-0.8); Eosinophils % (auto) 3.8 % (0.0-7.0); Hemoglobin 13.4 g/dL (12.2-16.2); Lymphocytes # (auto) 1.5 10 ^3/uL (0.4-5.4); Lymphocytes % (auto) 31.6 % (10.0-50.0); Mean Corpuscular Hemoglobin 33.5 pg (28.0-32.0); Mean Corpuscular Hgb Conc. 35.3 g/dL (32.0-36.0); Mean Corpuscular Volume 94.8 fL (80.0-100.0); Monocytes # (auto) 0.4 10 ^3/uL (0-1.3); Monocytes % (auto) 8.5 % (0.0-12.0); Neutrophils # (auto) 2.6 10 ^3/uL (1.6-8.6); Neutrophils % (auto) 55.4 % (37.0-80.0); Nucleated Red Blood Cells % 0.1 %; Platelet Count (auto) 128 10^3/uL (140-450); Red Blood Cells 4.01 10^6/uL (4.0-5.20); Red Cell Distribution Width 12.8 % (11.8-14.3); White Blood Cell 4.7 10^3/uL (4.4-10.8)
[2024-02-28 08:00] VITALS: PULSE 77; PULSE 88; RESP 20
[2024-02-28 09:00] VITALS: BP 122/68; PULSE 77; RESP 18; TEMP 97.8; O2SAT 97
[2024-02-28] MEDS: ENOXAPARIN SOD 40 MG/0.4 ML SYRINGE SC SCH (10:12)
[2024-02-28] MEDS ORDERED: IOHEXOL 350 MG/ML 100ML IJ ONE (12:21)
[2024-02-28 13:00] VITALS: BP 116/78; PULSE 75; RESP 17; TEMP 97.7; O2SAT 97
[2024-02-28 17:00] VITALS: BP 118/60; PULSE 78; RESP 16; TEMP 97.9; O2SAT 97
== END 2024-02-28 16:30 | disposition home or self-care (01) | DRG 189 ==
LOC: EDBD 15:48 → ER 15:48 → TELE 21:49 → TELE-EAST 21:49
PROVIDERS: ADMIT Internal Medicine; ATTEND Internal Medicine
DX: J96.21 Acute and chronic respiratory failure with hypoxia (principal); N17.0 Acute kidney failure with tubular necrosis; I42.8 Other cardiomyopathies; I50.42 Chronic combined systolic (congestive) and diastolic (congestive) heart failure; I25.118 Atherosclerotic heart disease of native coronary artery with other forms of angina pectoris; I11.0 Hypertensive heart disease with heart failure; J44.89 Other specified chronic obstructive pulmonary disease; M06.9 Rheumatoid arthritis, unspecified; I45.10 Unspecified right bundle-branch block; I27.20 Pulmonary hypertension, unspecified; Z86.73 Personal history of transient ischemic attack (TIA), and cerebral infarction without residual deficits; Z86.79 Personal history of other diseases of the circulatory system; Z86.718 Personal history of other venous thrombosis and embolism; Z95.0 Presence of cardiac pacemaker; Z88.1 Allergy status to other antibiotic agents; Z90.710 Acquired absence of both cervix and uterus; Z83.3 Family history of diabetes mellitus
CPT/HCPCS: 36415; 70450; 71045; 71275; 72125; 80048; 80053; 80061; 81001; 83036; 83735; 83880; 84484; 85025; 85379; 85610; 85730; 93005; 93970; 99291; G0378

== ENCOUNTER → 2024-06-26 | Outpatient (CLI) | payer OTHER ==
[~2024-06-26] MED LIST changes: -AMIO200T13 PO; -DIPH25CA66 PO; -FURO20TA3 PO; +FURO40TA4 PO; -NITR50CA24 PO
[2024-06-26 10:19] LABS: Basophils # (auto) 0 10 ^3/uL (0-0.2); Basophils % (auto) 0.8 % (0.0-2.0); Eosinophils # (auto) 0.1 10 ^3/uL (0-0.8); Eosinophils % (auto) 2.2 % (0.0-7.0); Hematocrit 40.3 % (36.0-46.0); Hemoglobin 13.9 g/dL (12.2-16.2); Lymphocytes # (auto) 1.7 10 ^3/uL (0.4-5.4); Lymphocytes % (auto) 33.2 % (10.0-50.0); Mean Corpuscular Hemoglobin 32.5 pg (28.0-32.0); Mean Corpuscular Hgb Conc. 34.5 g/dL (32.0-36.0); Mean Corpuscular Volume 94.2 fL (80.0-100.0); Monocytes # (auto) 0.3 10 ^3/uL (0-1.3); Monocytes % (auto) 5.7 % (0.0-12.0); Neutrophils % (auto) 58.1 % (37.0-80.0); Platelet Count (auto) 149 10^3/uL (140-450); Red Blood Cells 4.28 10^6/uL (4.0-5.20); Red Cell Distribution Width 13.3 % (11.8-14.3); White Blood Cell 5.2 10^3/uL (4.4-10.8)
[2024-06-26 11:20] LABS: Erythrocyte Sedimentation Rate 15 mm/hr (0-20)
[2024-06-26 12:27] LABS: Alanine Aminotransferase 13 U/L (7-40); Alkaline Phosphatase 65 U/L (46-116); Anion Gap 8 (5-15); CRP High Sensitivity 0.03 mg/dL (<1.0); Calcium 10.1 mg/dL (8.7-10.4); Carbon Dioxide 26 mmol/L (20-31); Chloride 106 mmol/L (98-107); Potassium 4.2 mmol/L (3.5-5.1); Sodium 140 mmol/L (136-145)
[2024-06-26 12:28] LABS: BUN/Creatinine Ratio 19.5 (10.0-20.0); Triglycerides 103 mg/dL (< 150)
[2024-06-26 12:29] LABS: Albumin 4.5 g/dL (3.2-4.8); Aspartate Aminotransferase 21 U/L (13-40)
[2024-06-26 12:30] LABS: Bilirubin, Total 0.6 mg/dL (0.2-1.0); Cholesterol 200 mg/dL (< 200); Total Protein 6.9 g/dL (5.7-8.2)
[2024-06-26 12:31] LABS: Blood Urea Nitrogen 24 mg/dL (9-23); Glucose 175 mg/dL (74-106)
[2024-06-26 12:36] LABS: HDL Cholesterol 52 mg/dL (40-59)
[2024-06-26 12:47] LABS: LDL Cholesterol 141 mg/dL (< 100)
[2024-06-27 09:38] LABS: Complement C3 145 mg/dL (82-167)
[2024-06-27 13:06] LABS: Anti-dsDNA Antibody 1 IU/mL (0-9)
== END | disposition home or self-care (01) ==
LOC: LAB 09:53
PROVIDERS: ATTEND Internal Medicine
DX: I13.0 Hypertensive heart and chronic kidney disease with heart failure and stage 1 through stage 4 chronic kidney disease, or unspecified chronic kidney disease (principal); I50.9 Heart failure, unspecified; N18.9 Chronic kidney disease, unspecified; E55.9 Vitamin D deficiency, unspecified; E78.5 Hyperlipidemia, unspecified; M05.79 Rheumatoid arthritis with rheumatoid factor of multiple sites without organ or systems involvement; M32.10 Systemic lupus erythematosus, organ or system involvement unspecified; R73.03 Prediabetes; Z79.899 Other long term (current) drug therapy
CPT/HCPCS: 36415; 80053; 80061; 82306; 82607; 83036; 85025; 85652; 86141; 86160; 86225

== ENCOUNTER → 2024-08-02 | Outpatient (CLI) | payer OTHER ==
[2024-08-02 14:19] LABS: Basophils # (auto) 0 10 ^3/uL (0-0.2); Basophils % (auto) 0.5 % (0.0-2.0); Eosinophils # (auto) 0.1 10 ^3/uL (0-0.8); Eosinophils % (auto) 2.1 % (0.0-7.0); Hemoglobin 14.2 g/dL (12.2-16.2); Lymphocytes # (auto) 1.7 10 ^3/uL (0.4-5.4); Lymphocytes % (auto) 23.8 % (10.0-50.0); Mean Corpuscular Hemoglobin 33.1 pg (28.0-32.0); Mean Corpuscular Hgb Conc. 35.4 g/dL (32.0-36.0); Mean Corpuscular Volume 93.4 fL (80.0-100.0); Monocytes # (auto) 0.5 10 ^3/uL (0-1.3); Monocytes % (auto) 7.7 % (0.0-12.0); Neutrophils # (auto) 4.6 10 ^3/uL (1.6-8.6); Neutrophils % (auto) 65.9 % (37.0-80.0); Platelet Count (auto) 155 10^3/uL (140-450); Red Blood Cells 4.28 10^6/uL (4.0-5.20); Red Cell Distribution Width 13.1 % (11.8-14.3)
[2024-08-02 14:43] LABS: Alanine Aminotransferase 11 U/L (7-40); Albumin 4.6 g/dL (3.2-4.8); Alkaline Phosphatase 65 U/L (46-116); Anion Gap 8 (5-15); Aspartate Aminotransferase 18 U/L (13-40); BUN/Creatinine Ratio 25.5 (10.0-20.0); Bilirubin, Total 0.5 mg/dL (0.2-1.0); Calcium 10.1 mg/dL (8.7-10.4); Carbon Dioxide 26 mmol/L (20-31); Chloride 103 mmol/L (98-107); Potassium 4.5 mmol/L (3.5-5.1); Sodium 137 mmol/L (136-145); Total Protein 7.2 g/dL (5.7-8.2)
[2024-08-02 14:46] LABS: Blood Urea Nitrogen 35 mg/dL (9-23); Glucose 184 mg/dL (74-106)
== END | disposition home or self-care (01) ==
LOC: LAB 13:59
PROVIDERS: ATTEND Internal Medicine
DX: I11.0 Hypertensive heart disease with heart failure (principal); I50.9 Heart failure, unspecified
CPT/HCPCS: 36415; 80053; 84443; 85025

== ENCOUNTER 2024-10-16 13:01 | Inpatient (IN) | payer OTHER ==
[2024-10-16] VITALS (7 sets, daily range): BP systolic 111–127; BP diastolic 62–65; PULSE 75–102; RESP 16–20; TEMP 97.9; O2SAT 94–100
[~2024-10-16] VITALS: Ht 157.5 cm; Wt 110.1 kg
--- NOTE | 2024-10-16 13:33 | ECG ---
[facility] Test Date: 2024-10-16 Test Time: 13:23:11 Pat Name: SIOBHAN ASHRAF Department: ER Room: Gender: F Dry Transfer Worker: NEREIDA : 1950 Requested By: MARI HERRON Order Number: [id number] Reading MD: Measurements Intervals [place] Rate: 102 P: 74 DC: 148 QRS: 94 QRSD: 122 T: 16 QT: 367 QTc: 479 Interpretive Statements Sinus tachycardia RBBB and LPFB Artifact in lead(s) I,II,aVR,aVL and baseline wander in lead(s) V1,V2 Please click the below link to view image of tracing.
[2024-10-16] MEDS: ASPirin 81 mg TAB PO ONE (13:57)
--- NOTE | 2024-10-16 14:10 | ED.PDOC ---
History of Present Illness HPI Comments 73-year-old female who comes in with chief complaint of shortness a breath and dizziness. The patient states that the shortness a breath started on Wednesday followed by some dizziness. The patient states that yesterday the symptoms seemed to worsened so she came to the emergency department's for evaluation. She is complaining of some left-sided chest pressure which she rates as a 9/10. There has been no fever or cough. The patient denies any vomiting or diarrhea. Chief Complaint: Shortness of Breath Time Seen by MD: 13:05 Primary Care Provider: Leonora Reviewed Notes: Nurses Notes, Medications, Allergies (Allergies listed above) Allergies: Coded Allergies: Doxycycline (Verified Allergy, Unknown, 09/19/21) Erythromycin (Verified Allergy, Unknown, 08/18/19) Fish Allergy (Verified Allergy, Unknown, 09/19/21) Nickel (Verified Allergy, Unknown, 08/18/19) Sulfa Antibiotics (Verified Allergy, Unknown, 08/18/19) Home Meds Reported Medications Etanercept (Enbrel Sureclick) 50 Mg/Ml Inj, 1 SYR SUBCUT QWEEKLY for 28 Days, #4 02/28/24 Fluticasone Furoate-Vilanterol (Breo Ellipta 200-25 Mcg/INH) 1 Inh Inh, 1 PUFF INH DAILY for 90 Days, #180 02/28/24 Furosemide (Furosemide) 40 Mg Tab, 1 TAB PO DAILY 02/26/24 Hydrocortone (Hydrocortisone 1%) 1 Applic Ap, 1 APPLIC TOP BID Apply topically to affected area twice a day. 11/22/23 Ergocalciferol (Vitamin D) 50,000 Unit Cap, 1 CP PO QWEEKLY 11/22/23 Metoprolol Succinate (Metoprolol Succinate Er) 25 Mg Tab, 0.5 TAB PO DAILY for 90 Days, #45 11/22/23 Alendronate Sodium (Alendronate Sodium) 70 Mg Tab, 1 TAB PO QWEEKLY 11/22/23 Sacubitril-Valsartan (Entresto 24-26 mg) 1 Tab Tab, 1 TAB PO BID 11/22/23 Albuterol Sulfate (Albuterol Sulfate Hfa) 108 Mcg/Act Aer, 2 PUFF INH Q4-6HR 11/22/23 Potassium Chloride (Klor-Con M10) 10 Meq Tab, 1 TAB PO DAILYPRN PRN for TAKE WITH LASIX, #30 TAB 5 Refills POTASSIUM CHLORIDE ER 08/18/19 Aspirin (Asa) 81 Mg Ch, 1 TAB PO DAILY 10/12/11 Information Source: Patient, Relative Mode of Arrival: Ambulatory Severity: Moderate Timing: Days Duration: Since onset Prehospital treatment: None Location: Left-sided chest pressure with increased shortness a breath and dizziness Associated signs and symptoms No nausea, vomiting or diarrhea Past Medical History PAST MEDICAL HISTORY: Arthritis, Asthma, CHF, COPD, HTN, TIA Surgical History: BTL, Hernia Repair, Pacemaker 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 CLERK History Family History Family History: Family hx of DM, Family hx of heart barak Social History Smoker: Non-Smoker Alcohol: Occasionally Drugs: Denies Drug Use Lives In: Home Constitutional: reports: weakness; denies: chills, diaphoresis, fatigue, fever, malaise, sweats, others EENTM: denies: blurred vision, double vision, ear bleeding, ear discharge, ear drainage, ear pain, ear ringing, eye pain, eye redness, hearing loss, mouth pain, mouth swelling, nasal discharge, nose bleeding, nose congestion, nose pain, photophobia, tearing, throat pain, throat swelling, voice changes, others Respiratory: reports: shortness of breath; denies: cough, hemoptysis, orthopnea, SOB at rest, SOB with excertion, stridor, wheezing, others Cardiovascular: denies: chest pain, dizzy spells, diaphoresis, Dyspnea on exertion, edema, irregular heart beat, left arm pain, lightheadedness, palpitations, PND, syncope, others Gastrointestinal: denies: abdomen distended, abdominal pain, blood streaked bowels, constipated, diarrhea, dysphagia, difficulty swallowing, hematemesis, melena, nausea, poor appetite, poor fluid intake, rectal bleeding, rectal pain, vomiting, others Genitourinary: denies: abnormal vagina bleeding, burning, dyspareunia, dysuria, flank pain, frequency, hematuria, incontinence, pain, , vagina discharge, urgency, others Neurological: reports: dizziness; denies: fainting, headache, left sided numbness, left sided weakness, numbness, paresthesia, pre-existing deficit, right sided numbness, right sided weakness, seizure, speech problems, tingling, tremors, weakness, others Musculoskeletal: denies: back pain, gout, joint pain, joint swelling, muscle pa in, muscle stiffness, neck pain, others Integumetry: denies: bruises, change in color, change in hair/nails, dryness, laceration, lesions, lumps, rash, wounds, others Allergic/Immunocompromised: denies: Difficulty Healing, Frequent Infections, Hives, Itching, others Hematologic/Lymphatic: denies: anemia, blood clots, easy bleeding, easy bruising, swollen glands, others Endocrine: denies: excessive hunger, excessive sweating, excessive thirst, excessive urination, flushing, intolerance to cold, intolerance to heat, unexplained weight gain, unexplained weight loss, others Psychiatric: denies: anxiety, bipolar disorder, depression, hopeless, panic disorder, schizophrenia, sleepless, suicidal, others Physical Exam General Appearance: Moderate Distress, Obese HEENT: Normal ENT Inspection, Pharynx Normal, TMs Normal Neck: Full Range of Motion, Non-Tender, Normal, Normal Inspection Respiratory: Chest Non-Tender, Lungs Clear, No Accessory Muscle Use, No Respiratory Distress, Normal Breath Sounds Cardiovascular: No Edema, No JVD, No Murmur, No Gallop, Normal Peripheral Pulses, Regular Rate/Rhythm Breast Exam: Deferred Gastrointestinal: No Organomegaly, Non Tender, No Pulsatile Mass, Normal Bowel Sounds, Soft Genitalia: Deferred Pelvic: Deferred Rectal: Deferred Extremities: No calf tenderness, Normal capillary refill, Normal inspection, Normal range of motion, Non-tender, No pedal edema Musculoskeletal : Apperance: Normal Neurologic: Alert, passenger relations representative II-XII nml as Tested, Motor Weakness, Normal Affect, Normal Mood, No Sensory Deficits Cerebellar Function: Normal Reflexes: Normal Skin: Dry, Normal Color, Warm Lymphatic: No Adenopathy Was a procedure done? Was a procedure done?: No EKG EKG : Pulse Rate (adult): 102 [place]: Normal Cardiac Rhythm: ST Block: None ST: Nonsp Differential Dx Considerations may include: Generalized weakness, shortness for breath, pneumonia, CHF, COPD X-Ray, Labs, Meds, VS Vital Signs Date Time Temp Pulse Resp B/P (MAP) Pulse Ox O2 Delivery O2 Flow Rate FiO2 10/16/24 14:10 102 10/16/24 13:26 97.9 108 18 127/62 (83) 94 97.9 10/16/24 13:23 102 Lab Test 10/16/24 15:05 10/16/24 14:45 10/16/24 14:01 Range/Units Urine Color Yellow Yellow Urine Clarity Clear Clear Urine pH 5.0 5.0-9.0 Urine Specific [place] 1.023 1.001-1.035 Urine Protein Negative Negative Urine Ketones Negative Negative Urine Blood Negative Negative /uL Urine Nitrite Negative Negative Urine Bilirubin Negative Negative Urine Urobilinogen Normal Negative mg/dL Urine Leukocyte Esterase Negative Negative /uL Urine RBC <1 0 - 4 /hpf Urine Microscopic WBC 1 0-5 /HPF Urine Squamous Epithelial Cells None seen <5 /hpf Urine Bacteria None seen None Seen /hpf Urine Hyaline Casts Few 0 - 2 /lpf Urine Glucose Trace Normal mg/dL Troponin I High Sensitivity 3 L 3 L </=34 ng/L White Blood Count 5.2 4.4-10.8 10^3/uL Red Blood Count 4.28 4.0-5.20 10^6/uL Hemoglobin 13.8 12.2-16.2 g/dL Hematocrit 39.5 36.0-46.0 % Mean Corpuscular Volume 92.3 80.0-100.0 fL Mean Corpuscular Hemoglobin 32.3 H 28.0-32.0 pg Mean Corpuscular Hemoglobin Concent 35.0 32.0-36.0 g/dL Red Cell Distribution Width 13.0 11.8-14.3 % Platelet Count 174 140-450 10^3/uL Mean Platelet Volume 7.3 6.9-10.8 fL Neutrophils (%) (Auto) 67.1 37.0-80.0 % Lymphocytes (%) (Auto) 21.9 10.0-50.0 % Monocytes (%) (Auto) 7.3 0.0-12.0 % Eosinophils (%) (Auto) 2.9 0.0-7.0 % Basophils (%) (Auto) 0.8 0.0-2.0 % Neutrophils # (Auto) 3.5 1.6-8.6 10 ^3/uL Lymphocytes # (Auto) 1.1 0.4-5.4 10 ^3/uL Monocytes # (Auto) 0.4 0-1.3 10 ^3/uL Eosinophils # (Auto) 0.2 0-0.8 10 ^3/uL Basophils # (Auto) 0 0-0.2 10 ^3/uL Nucleated Red Blood Cells 0.0 % D-Dimer, Quantitative 0.91 H 0.0-0.49 mg/L FEU Sodium Level 140 136-145 mmol/L Potassium Level 4.5 3.5-5.1 mmol/L Chloride Level 108 H 98-107 mmol/L Carbon Dioxide Level 23 20-31 mmol/L Anion Gap 9 5-15 Blood Urea Nitrogen 32 H 9-23 mg/dL Creatinine 1.28 H 0.550-1.02 mg/dL Glomerular Filtration Rate Calc 44 >90 mL/min BUN/Creatinine Ratio 25.0 H 10.0-20.0 Serum Glucose 192 H 74-106 mg/dL Calcium Level 9.3 8.7-10.4 mg/dL B-Type Natriuretic Peptide 79.90 0-100 pg/mL Current Medications Medications (Trade) Dose Ordered Sig/Kristel Route Start Time Stop Time Status Last Admin Aspirin 162 mg ONCE ONCE PO 10/16/24 13:30 10/16/24 13:32 DC 10/16/24 13:57 XY CHEST TWO VIEWS ROUTINE, IMPRESSION: No acute intrathoracic abnormality. The CBC and chemistry panel are within normal limits The BNP is within normal limits The D-dimer is 0.91 The BUN and creatinine are somewhat elevated The urine test is negative At this time, the patient is being admitted to the hospitalist The patient was given aspirin 162 mg by mouth for the chest pain Images Reviewed?: Images reviewed and evaluated by me Time of 1ST Reevaluation: 14:10 Reevaluation 1ST: Unchanged Patient Education/Counseling: Diagnosis, Treatment, Prognosis Family Education/Counseling: No Family Present Departure 1 Departure Time of Disposition: 16:30 Impression: Primary Impression: Shortness of breath Additional Impression: Autonomic dysfunction Disposition: 09 ADMITTED INPATIENT Admit to: Tele Condition: Fair Critical Care Note Critical Care Time?: Yes (45 min-critical care time only) Stability Stability form required: Yes Unstable for transfer: Telemetry monitoring (Telemetry monitoring required), ED Physician Assesment (Clinical assesment) Heart Score Heart Score: Heart Score Response (Comments) Value History Moderate Suspicious 1 EKG Repolarization Disturb 1 Age >65 2 Risk Factors >3 or Hx ASHD 2 Troponin Normal limit 0 Total 6 I personally scribed for MARI HERRON MD ([email or web address]) on 10/16/24 at 16:00. Electronically submitted by Tracy Newton ([facility]). MARI HERRON MD October 16, 2024 14:10
--- NOTE | 2024-10-16 14:11 | DVH ---
XY CHEST TWO VIEWS ROUTINE, HISTORY: cp/sob COMPARISON: None None TECHNICAL DATA: 2 view of the chest was obtained. FINDINGS: Lines and tubes: A pacer is seen. Cardiomediastinal silhouette: normal Pulmonary vasculature: normal Lung expansion: normal Lung airspace: normal Lung interstitium: normal Pleura: normal Pneumothorax: no Bones: Unremarkable Other: no IMPRESSION: No acute intrathoracic abnormality.
[2024-10-16 14:14] LABS: Basophils # (auto) 0 10 ^3/uL (0-0.2); Basophils % (auto) 0.8 % (0.0-2.0); Eosinophils # (auto) 0.2 10 ^3/uL (0-0.8); Eosinophils % (auto) 2.9 % (0.0-7.0); Hematocrit 39.5 % (36.0-46.0); Hemoglobin 13.8 g/dL (12.2-16.2); Lymphocytes # (auto) 1.1 10 ^3/uL (0.4-5.4); Lymphocytes % (auto) 21.9 % (10.0-50.0); Mean Corpuscular Hemoglobin 32.3 pg (28.0-32.0); Mean Corpuscular Volume 92.3 fL (80.0-100.0); Monocytes # (auto) 0.4 10 ^3/uL (0-1.3); Monocytes % (auto) 7.3 % (0.0-12.0); Neutrophils # (auto) 3.5 10 ^3/uL (1.6-8.6); Neutrophils % (auto) 67.1 % (37.0-80.0); Platelet Count (auto) 174 10^3/uL (140-450); Red Blood Cells 4.28 10^6/uL (4.0-5.20); White Blood Cell 5.2 10^3/uL (4.4-10.8)
[2024-10-16 14:25] LABS: Potassium 4.5 mmol/L (3.5-5.1); Sodium 140 mmol/L (136-145)
[2024-10-16 14:26] LABS: Anion Gap 9 (5-15); Carbon Dioxide 23 mmol/L (20-31)
[2024-10-16 14:27] LABS: Calcium 9.3 mg/dL (8.7-10.4)
[2024-10-16 14:32] LABS: Blood Urea Nitrogen 32 mg/dL (9-23); Chloride 108 mmol/L (98-107); Glucose 192 mg/dL (74-106)
[2024-10-16 15:53] LABS: Urine Bacteria None Seen /hpf (None Seen)
[2024-10-16 16:05] LABS: Urine Blood Negative /uL (Negative); Urine Clarity Clear (Clear); Urine Color Yellow (Yellow); Urine Hyaline Cast FEW /lpf (0 - 2); Urine Protein, UAD Negative (Negative); Urine Specific Gravity 1.023 (1.001-1.035); Urine Squamous Epithelial Cell None Seen /hpf (<5); Urine Urobilinogen Normal (Negative); Urine WBC 1 /HPF (0-5)
[2024-10-16] MEDS ORDERED: MORPHINE SULFATE INJ 2 MG/ml SYRG IV PRN ×2 (17:15)
[2024-10-16] MEDS ORDERED: ONDANSETRON HCL 4 MG/2 ML VIAL IV PRN (17:15)
[2024-10-16] MEDS ORDERED: DOCUSATE SOD 100 MG CAP PO PRN (17:15)
[2024-10-16] MEDS ORDERED: HYDROcodone-ACET 5/325MG TAB PO PRN (17:15)
[2024-10-16] MEDS ORDERED: NITROGLYCERIN 0.4 MG SL TAB SL PRN (17:15)
[2024-10-16] MEDS ORDERED: IPRATROPIUM BROM 0.5 MG/2.5ML INH SOL NEB PRN (17:30)
--- NOTE | 2024-10-16 17:32 | DVHHP2 ---
History of Present Illness Reason for Visit: Shortness of breath, History of Present Illness Laura Graham is a 73-year-old female with past medical history of COPD, CHF, arthritis, lupus, asthma, hypertension, and TIA, who came to the hospital for shortness of breath. Patient states she began experiencing shortness of george th on Wednesday with exertion. When she was resting she was good, she was able to sleep Wednesday night. On Wednesday her symptoms worsened, and Wednesday night she was not able to sleep due to the increase in her shortness of breath when laying down. This prompted her to come to the hospital today. She also states she was having left sided chest pressure with her shortness of breath. 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 Musculoskeletal: Osteoarthritis Rheumatologic: Other (Lupus) Past Surgical History: Hysterectomy, Hernia Repair Smoke: No ALCOHOL: rare Drugs: None Lives: with Family Domestic Violence: Neg Review of Systems Constitutional: No: Fever, Chills, Sweats, Weakness, Malaise, Other Eyes: No: Pain, Vision change, Conjunctivae inflammation, Eyelid inflammation, Other, Redness ENT: No: Ear pain, Ear discharge, Nose pain, Nose discharge, Nose congestion, Mouth pain, Mouth swelling, Throat pain, Throat swelling, Other Respiratory: Shortness of breath, SOB with excertion, Wheezing; No: Cough, Dry, Hemoptysis, Pleuritic Pain, Sputum, Wheezing, Other Cardiovascular: Chest Pain; No: Palpitations, Orthopnea, Paroxysmal Noc. Dyspnea, Edema, Lt Headedness, Other Gastrointestinal: No: Nausea, Vomiting, Abdominal Pain, Diarrhea, Constipation, Melena, Hematochezia, Other Genitourinary: No Dysuria, No Frequency, No Incontinence, No Hematuria, No Retention, No Other Musculoskeletal: No: other, neck pain, shoulder pain, arm pain, back pain, hand pain, leg pain, foot pain Skin: No: Rash, Lesions, Jaundice, Bruising, Other Neurological: No: Weakness, Numbness, Incoordination, Change in speech, Confusion, Seizures, Other Allergies: Coded Allergies: Doxycycline (Verified Allergy, Unknown, 09/19/21) Erythromycin (Verified Allergy, Unknown, 08/18/19) Fish Allergy (Verified Allergy, Unknown, 09/19/21) Nickel (Verified Allergy, Unknown, 08/18/19) Sulfa Antibiotics (Verified Allergy, Unknown, 08/18/19) Exam Vital Signs Vital Signs Date Time Temp Pulse Resp B/P (MAP) Pulse Ox O2 Delivery O2 Flow Rate FiO2 10/16/24 14:10 102 10/16/24 13:26 97.9 18 127/62 (83) 94 97.9 General Appearance: Alert, Oriented X3, Cooperative, mild distress HEENT: Atraumatic, PERRLA Respiratory: Other (Diminshied breath sounds) Cardiovascular: Normal S1, Normal S2, Other (SR-ST) Abdominal: Normal bowel sounds, Soft, No tenderness, No hepatospenomegaly Extremities: No clubbing, No cyanosis, Normal pulses, No tenderness/swelling, Other (bilateral lower extremity edema) Skin: No rashes, No breakdown, No significant lesion Neuro: Normal gait, Normal speech, Strength at 5/5 X4 ext Psych/Mental Status: Mental status NL, Mood NL Labs/Xrays Labs Test 10/16/24 15:05 10/16/24 14:45 10/16/24 14:01 Range/Units Urine Color Yellow Yellow Urine Clarity Clear Clear Urine pH 5.0 5.0-9.0 Urine Specific [place] 1.023 1.001-1.035 Urine Protein Negative Negative Urine Ketones Negative Negative Urine Blood Negative Negative /uL Urine Nitrite Negative Negative Urine Bilirubin Negative Negative Urine Urobilinogen Normal Negative mg/dL Urine Leukocyte Esterase Negative Negative /uL Urine RBC <1 0 - 4 /hpf Urine Microscopic WBC 1 0-5 /HPF Urine Squamous Epithelial Cells None seen <5 /hpf Urine Bacteria None seen None Seen /hpf Urine Hyaline Casts Few 0 - 2 /lpf Urine Glucose Trace Normal mg/dL Troponin I High Sensitivity 3 L </=34 ng/L White Blood Count 5.2 4.4-10.8 10^3/uL Red Blood Count 4.28 4.0-5.20 10^6/uL Hemoglobin 13.8 12.2-16.2 g/dL Hematocrit 39.5 36.0-46.0 % Mean Corpuscular Volume 92.3 80.0-100.0 fL Mean Corpuscular Hemoglobin 32.3 H 28.0-32.0 pg Mean Corpuscular Hemoglobin Concent 35.0 32.0-36.0 g/dL Red Cell Distribution Width 13.0 11.8-14.3 % Platelet Count 174 140-450 10^3/uL Mean Platelet Volume 7.3 6.9-10.8 fL Neutrophils (%) (Auto) 67.1 37.0-80.0 % Lymphocytes (%) (Auto) 21.9 10.0-50.0 % Monocytes (%) (Auto) 7.3 0.0-12.0 % Eosinophils (%) (Auto) 2.9 0.0-7.0 % Basophils (%) (Auto) 0.8 0.0-2.0 % Neutrophils # (Auto) 3.5 1.6-8.6 10 ^3/uL Lymphocytes # (Auto) 1.1 0.4-5.4 10 ^3/uL Monocytes # (Auto) 0.4 0-1.3 10 ^3/uL Eosinophils # (Auto) 0.2 0-0.8 10 ^3/uL Basophils # (Auto) 0 0-0.2 10 ^3/uL Nucleated Red Blood Cells 0.0 % D-Dimer, Quantitative 0.91 H 0.0-0.49 mg/L FEU Sodium Level 140 136-145 mmol/L Potassium Level 4.5 3.5-5.1 mmol/L Chloride Level 108 H 98-107 mmol/L Carbon Dioxide Level 23 20-31 mmol/L Anion Gap 9 5-15 Blood Urea Nitrogen 32 H 9-23 mg/dL Creatinine 1.28 H 0.550-1.02 mg/dL Glomerular Filtration Rate Calc 44 >90 mL/min BUN/Creatinine Ratio 25.0 H 10.0-20.0 Serum Glucose 192 H 74-106 mg/dL Calcium Level 9.3 8.7-10.4 mg/dL B-Type Natriuretic Peptide 79.90 0-100 pg/mL XY CHEST TWO VIEWS ROUTINE, FINDINGS: Lines and tubes: A pacer is seen. Cardiomediastinal silhouette: normal Pulmonary vasculature: normal Lung expansion: normal Lung airspace: normal Lung interstitium: normal Pleura: normal Pneumothorax: no Bones: Unremarkable Other: no IMPRESSION: No acute intrathoracic abnormality. Assessment/Plan Assessment/Plan Assessment: Shortness of breath, Chest pain/ R/O ACS, Hyperglycemia, Elevated D-dimer, CHF, COPD, Hypertension, Plan: Admit to Tele, Cardiology consult, Bilateral lower extremity ultrasound, Consider CT angio of chest, A1c, Swab for COVID, influenza A&B, Supplemental oxygen as needed, Breathing treatments as needed, IV Lasix, Home medications reconciled, Plan discussed with: Patient My Orders Orders - ZOILA JAIMES Procedure Category Date Status Time Admit ADMIT 10/16/24 Verified 17:13 Code Status CODE 10/16/24 Verified 17:13 2 Gm Sodium Diet DIET 10/16/24 Verified Dinner Sodium Chloride Lock PHA 10/16/24 Verified (Saline Lock Ns) 22:00 Hydrocodone-Acet PHA 10/16/24 Verified 5/325mg Tab ([place] 17:15 Ondansetron Hcl PHA 10/16/24 Verified (Zofran) 17:15 Docusate Sodium PHA 10/16/24 Verified Capsule ([place] 17:15 Fall Risk Precautions [facility] 10/16/[address] 17:13 Complete Blood Count LAB 10/17/24 Verified 04:00 Comprehensive LAB 10/17/24 Verified Metabolic Panel 04:00 Condition: Serious [facility] 10/16/24 Verified 17:13 Acetaminophen Tablet [facility] 10/16/24 Verified (Tylenol Tablet) 17:15 Morphine Sulfate [facility] 10/16/24 Verified Injection 17:15 Nitroglycerin [facility] 10/16/24 Verified Sublingual (Ntrostat 17:15 Morphine Sulfate [facility] 10/16/24 Verified Injection 17:15 Stat Ekg For Chest [facility] 10/16/24 Verified Pain 17:13 Notify Md Of Changes [facility] 10/16/24 Verified From Base 17:13 Contact Lens Assistant For [facility] 10/16/24 Verified 24 Hours 17:13 Emergency Dysrhythmia [facility] 10/16/24 Verified Protocol 17:13 Rhythm Strips Once [facility] 10/16/24 Verified Every Shift 17:13 Oxygen By Nasal RT 10/16/24 Verified Cannula 17:13 Aspirin Tablet [facility] 10/17/24 Verified 10:00 Sacubitril-Valsartan [facility] 10/16/24 Verified (Entresto 24-26 Mg 22:00 (Nf) Metoprolol [facility] 10/17/24 Verified Succinate (Metoprolol 10:00 Bilat Lower Dvt US 10/16/24 Verified 17:13 Date of Service: October 16, 2024 Billing Provider: ZOILA JAIMES Common Visit Codes: [id number] INP/OBS CARE (MOD) ZOILA JAIMES HELICOPTER REPAIRER October 16, 2024 17:32
--- NOTE | 2024-10-16 18:12 | DVH ---
Bilateral lower extremity venous duplex Clinical History: elevated d-dimer, short of breath Comparison: US BILAT LOWER DVT on DOS: 02/27/24 Technique: Duplex Doppler evaluation of the deep venous systems of both lower extremities from the common femora l veins to the popliteal veins including color Doppler and spectral/pulsed waveform analysis was perf ormed. Findings: RIGHT SIDE: The common femoral vein demonstrates appropriate compressibility and waveform variability. There is compressibility/patency of the great saphenous vein at the proximal thigh. The femoral vein demonstrates appropriate compressibility and waveform variability. The deep femoral vein demonstrates appropriate compressibility and waveform variability. The popliteal vein demonstrates appropriate compressibility and waveform variability. There is normal compressibility at the tibioperoneal trunk. LEFT SIDE: The common femoral vein demonstrates appropriate compressibility and waveform variability. There is compressibility/patency of the great saphenous vein at the proximal thigh. The femoral vein demonstrates appropriate compressibility and waveform variability. The deep femoral vein demonstrates appropriate compressibility and waveform variability. The popliteal vein demonstrates appropriate compressibility and waveform variability. There is normal compressibility at the tibioperoneal trunk. Impression: 1. No right or left femoropopliteal venous thrombosis.
[2024-10-16] MEDS: FUROSEMIDE 40 MG/4 ML VIAL IV ONE (18:24)
[2024-10-16 18:48] LABS: COVID19 ANTIGEN SOFIA FIA NEGATIVE (NEGATIVE); Rapid Influenza A Negative (Negative); Rapid Influenza B Negative (Negative)
[2024-10-16] MEDS: SODIUM CHLOR 0.9% PF (SALINE LOCK) 10ML VIAL/SYR IV SCH (22:00)
[2024-10-16] MEDS: SACUBITRIL-VALSARTAN 24mg/26mg TAB PO SCH (22:00)
[2024-10-17] VITALS (11 sets, daily range): BP systolic 99–120; BP diastolic 44–72; PULSE 64–88; RESP 16–20; TEMP 97.7–98.2; O2SAT 94–98
[2024-10-17] MEDS: ACETAMINOPHEN 325 MG TAB PO PRN (03:12)
[2024-10-17 06:10] LABS: Basophils # (auto) 0 10 ^3/uL (0-0.2); Basophils % (auto) 0.5 % (0.0-2.0); Eosinophils # (auto) 0.2 10 ^3/uL (0-0.8); Eosinophils % (auto) 4.2 % (0.0-7.0); Hematocrit 38.3 % (36.0-46.0); Hemoglobin 13.5 g/dL (12.2-16.2); Lymphocytes # (auto) 1.4 10 ^3/uL (0.4-5.4); Lymphocytes % (auto) 23.6 % (10.0-50.0); Mean Corpuscular Hemoglobin 32.3 pg (28.0-32.0); Mean Corpuscular Hgb Conc. 35.4 g/dL (32.0-36.0); Mean Corpuscular Volume 91.4 fL (80.0-100.0); Monocytes # (auto) 0.6 10 ^3/uL (0-1.3); Monocytes % (auto) 9.5 % (0.0-12.0); Neutrophils # (auto) 3.6 10 ^3/uL (1.6-8.6); Neutrophils % (auto) 62.2 % (37.0-80.0); Platelet Count (auto) 151 10^3/uL (140-450); Red Blood Cells 4.19 10^6/uL (4.0-5.20); Red Cell Distribution Width 13.3 % (11.8-14.3); White Blood Cell 5.8 10^3/uL (4.4-10.8)
[2024-10-17 06:36] LABS: Albumin 4.2 g/dL (3.2-4.8); Alkaline Phosphatase 49 U/L (46-116); Anion Gap 11 (5-15); Aspartate Aminotransferase 17 U/L (13-40); Bilirubin, Total 0.7 mg/dL (0.2-1.0); Calcium 9.9 mg/dL (8.7-10.4); Carbon Dioxide 23 mmol/L (20-31); Chloride 106 mmol/L (98-107); Potassium 3.9 mmol/L (3.5-5.1); Sodium 140 mmol/L (136-145); Total Protein 6.5 g/dL (5.7-8.2)
[2024-10-17 06:39] LABS: Alanine Aminotransferase < 9 U/L (7-40); Blood Urea Nitrogen 28 mg/dL (9-23); Glucose 133 mg/dL (74-106)
[2024-10-17] MEDS: FUROSEMIDE 20 MG/2 ML VIAL IV SCH (09:11)
[2024-10-17] MEDS: ASPirin 81 mg TAB PO SCH (09:12)
[2024-10-17] MEDS: METOPROLOL SUCCINATE XL 50 MG TAB PO SCH (09:12)
[2024-10-17] MEDS: FUROSEMIDE 20 MG/2 ML VIAL IV ONE (16:52)
[2024-10-17] MEDS ORDERED: DEXTROSE (50%) 50ML SYRG IV PRN (17:00)
--- NOTE | 2024-10-17 17:00 | DVHPN2 ---
Subjective Seen and examined at bedside, cont Lasix. Add Prednisone. Changes from previous H/P or p: No Changes Eyes: No Pain, No Vision change, No Conjunctivae inflammation, No Eyelid inflammation, No Other, No Redness ENT: No Ear pain, No Ear discharge, No Nose pain, No Nose discharge, No Nose congestion, No Mouth pain, No Mouth swelling, No Throat pain, No Throat swelling, No Other Cardiovascular: Chest Pain; No Palpitations, No Orthopnea, No Paroxysmal Noc. Dyspnea, No Edema, No Lt Headedness, No Other Respiratory: No Cough, No Dry; Shortness of breath, SOB with excertion, W heezing; No Hemoptysis, No Pleuritic Pain, No Sputum, No Other Gastrointestinal: No Nausea, No Vomiting, No Abdominal Pain, No Diarrhea, No Constipation, No Melena, No Hematochezia, No Other Genitourinary: No Dysuria, No Frequency, No Incontinence, No Hematuria, No Retention, No Other Musculoskeletal: No other, No neck pain, No shoulder pain, No arm pain, No back pain, No hand pain, No leg pain, No foot pain Skin: No Rash, No Lesions, No Jaundice, No Bruising, No Other Objective Vitals Vital Signs Date Time Temp Pulse Resp B/P (MAP) Pulse Ox O2 Delivery O2 Flow Rate FiO2 10/17/24 16:52 112/54 10/17/24 16:51 98.0 75 20 95 98.0 10/17/24 10:00 Room Air* 0 21 Intake/Output Intake and Output 10/17/24 07:00 Intake Total 600 ml Balance 600 ml Intake Oral 600 ml # Voids 3 General Appearance: Alert, Oriented X3, Cooperative Lungs: Clear to auscultation Cardiovascular: Regular rate, Normal S1, Normal S2 Abdomen: Normal bowel sounds, Soft Psych/Mental Status: Mental status NL Medications Current Medications Medications Dose Ordered Sig/Kristel Route Start Time Stop Time Status Last Admin Dose Admin Sodium Chloride 10 ml Q8HR IV 10/16/24 22:00 10/17/24 13:28 10 ML Acetaminophen/ Hydrocodone Bitart 1 tab Q4HP PRN PO 10/16/24 17:15 Ondansetron HCl 4 mg Q4HP PRN IV 10/16/24 17:15 Docusate Sodium 100 mg BIDPRN PRN PO 10/16/24 17:15 Acetaminophen 650 mg Q6HP PRN PO 10/16/24 17:15 10/17/24 03:12 650 MG Morphine Sulfate 2 mg Q4HPRN PRN IV 10/16/24 17:15 Nitroglycerin 0.4 mg Q5MINP PRN SL 10/16/24 17:15 Morphine Sulfate 2 mg Q30M PRN IV 10/16/24 17:15 Aspirin 81 mg DAILY PO 10/17/24 10:00 10/17/24 09:12 81 MG Sacubitril/ Valsartan 1 tab BID PO 10/16/24 22:00 10/17/24 09:12 1 TAB Metoprolol Succinate 25 mg DAILY PO 10/17/24 10:00 10/17/24 09:12 25 MG Albuterol 2.5 mg Q4HPRN PRN NEB 10/16/24 17:30 Ipratropium [place] 0.5 mg Q4HPRN PRN NEB 10/16/24 17:30 Furosemide 20 mg DAILY IV 10/17/24 10:00 10/17/24 09:11 20 MG Laboratory Results Laboratory Tests 10/17/24 05:28 Chemistry Test 10/17/24 05:28 Albumin 4.2 g/dL (3.2-4.8) Calcium Level 9.9 mg/dL (8.7-10.4) Total Protein 6.5 g/dL (5.7-8.2) LFT Test 10/17/24 05:28 Alanine Aminotransferase (ALT) < 9 U/L (7-40) Alkaline Phosphatase 49 U/L (46-116) Aspartate Amino Transferase (AST) 17 U/L (13-40) Total Bilirubin 0.7 mg/dL (0.2-1.0) Urinalysis Test 10/16/24 15:05 Urine Color Yellow (Yellow) Urine Clarity Clear (Clear) Urine pH 5.0 (5.0-9.0) Urine Specific [place] 1.023 (1.001-1.035) Urine Protein Negative (Negative) Urine Ketones Negative (Negative) Urine Blood Negative /uL (Negative) Urine Nitrite Negative (Negative) Urine Bilirubin Negative (Negative) Urine Urobilinogen Normal mg/dL (Negative) Urine Leukocyte Esterase Negative /uL (Negative) Urine RBC <1 /hpf (0 - 4) Urine Microscopic WBC 1 /HPF (0-5) Urine Squamous Epithelial Cells None seen /hpf (<5) Urine Bacteria None seen /hpf (None Seen) Urine Hyaline Casts Few /lpf (0 - 2) Urine Glucose Trace mg/dL (Normal) Assessment/Plan Assessment/Plan Shortness of breath possibly due to COPD Exacerbation???- Prednisone Acute Systolic CHF- Lasix COPD, Hypertension, Plan discussed with: Patient, Spouse My Orders Orders - WILLIAM MCCLURE MD Procedure Category Date Status Time Pt Request For Service PT 10/17/24 Logged 14:01 Oob To Chair [facility] 10/17/24 In Process 14:01 Date of Service: October 17, 2024 Billing Provider: WILLIAM MCCLURE MD Common Visit Codes: [id number] INP/OBS CARE(HIGH) WILLIAM MCCLURE MD October 17, 2024 17:00
[2024-10-17] MEDS: InsuLIN REG 1unit/0.01ml Soln (100units/ml) SC SCH ×2 (17:53→22:02)
[2024-10-17] MEDS: ACCU-CHEK COMFORT CURVE STRIP VI SCH (17:53)
[2024-10-17] MEDS: predniSONE 20 MG TAB PO ONE (17:54)
--- NOTE | 2024-10-17 19:45 | DVHCONRES ---
Date Seen: October 17, 2024 Resident Creating Document: LUCIA MORAN RESIDENT History of Present Illness 73-year-old female with past medical history of COPD, CHF, lupus, rheumatoid arthritis, asthma, hypertension and TIA presented with complaints of shortness of breath that started Wednesday. Patient had shortness of breath on minimal activity, associated with mild chest heaviness. Patient was treated with IV Lasix in the ER. Patient is currently on room air, able to talk without any distress. Last echo done showed ejection fraction of 60% in June 2024, had left heart catheterization done in 2021 which was not showing evidence of significant coronary artery disease Patient had AICD placed because she was mentioning her ejection fraction was 20% and then it improved to 40-45% and is currently 60% Family history Breast cancer in sister at the age of 63 Rheumatoid arthritis in multiple family members Diabetes mellitus in mother Heart condition in multiple family members Medication history Aspirin 81 mg Etanercept Lasix Metoprolol Entresto Social history Denied smoking, alcohol, marijuana or any other drug intake Family History: Diabetes mellitus G8 BROTHER FH: rheumatic fever G8 MOTHER ( WITH RHEUMATIC FEVER DURING CHILD ) FHx: heart disease G8 MOTHER Allergies: Coded Allergies: Doxycycline (Verified Allergy, Unknown, 09/19/21) Erythromycin (Verified Allergy, Unknown, 08/18/19) Fish Allergy (Verified Allergy, Unknown, 09/19/21) Nickel (Verified Allergy, Unknown, 08/18/19) Sulfa Antibiotics (Verified Allergy, Unknown, 08/18/19) Home Meds Reported Medications Etanercept (Enbrel Sureclick) 50 Mg/Ml Inj, 1 SYR SUBCUT QWEEKLY for 28 Days, #4 02/28/24 Furosemide (Furosemide) 40 Mg Tab, 1 TAB PO DAILY 02/26/24 Hydrocortone (Hydrocortisone 1%) 1 Applic Ap, 1 APPLIC TOP BID Apply topically to affected area twice a day. 11/22/23 Ergocalciferol (Vitamin D) 50,000 Unit Cap, 1 CP PO QWEEKLY 11/22/23 Metoprolol Succinate (Metoprolol Succinate Er) 25 Mg Tab, 0.5 TAB PO DAILY for 90 Days, #45 11/22/23 Alendronate Sodium (Alendronate Sodium) 70 Mg Tab, 1 TAB PO QWEEKLY 11/22/23 Sacubitril-Valsartan (Entresto 24-26 mg) 1 Tab Tab, 1 TAB PO BID 11/22/23 Albuterol Sulfate (Albuterol Sulfate Hfa) 108 Mcg/Act Aer, 2 PUFF INH Q4-6HR 11/22/23 Potassium Chloride (Klor-Con M10) 10 Meq Tab, 1 TAB PO DAILYPRN PRN for TAKE WITH LASIX, #30 TAB 5 Refills POTASSIUM CHLORIDE ER 08/18/19 Aspirin (Asa) 81 Mg Ch, 1 TAB PO DAILY 10/12/11 Current Medications Current Medications Medications (Trade) Dose Ordered Sig/Kristel Route PRN Reason Start Time Stop Time Status Last Admin Sodium Chloride (Saline Lock Ns) 10 ml Q8HR IV 10/16/24 22:00 10/17/24 13:28 Aspirin 81 mg DAILY PO 10/17/24 10:00 10/17/24 09:12 Sacubitril/ Valsartan (Entresto 24-26 Mg tab) 1 tab BID PO 10/16/24 22:00 10/17/24 09:12 Metoprolol Succinate (Toprol Xl) 25 mg DAILY PO 10/17/24 10:00 10/17/24 09:12 Furosemide (Lasix Injection) 20 mg DAILY IV 10/17/24 10:00 10/17/24 09:11 Prednisone 40 mg DAILY PO 10/18/24 10:00 Diagnostic Test (Pha) (Accu-Chek Comfort Curve T) 1 strip ACHS 10/17/24 17:00 10/17/24 17:53 Insulin Human Regular (InsuLIN R) HS SC 10/17/24 22:00 Insulin Human Regular (InsuLIN R) AC SC 10/17/24 17:00 Dextrose 50 ml UD PRN IV Blood Sugar LESS THAN 60 10/17/24 17:00 Review of Systems As described in the HPI Vital Signs Vital Signs Date Time Temp Pulse Resp B/P (MAP) Pulse Ox O2 Delivery O2 Flow Rate FiO2 10/17/24 16:52 112/54 10/17/24 16:51 98.0 75 20 95 98.0 10/17/24 10:00 Room Air* 0 21 Physical Exam Examination General Appearance: Alert, Oriented X3, Cooperative, No acute distress HEENT: EOMI Respiratory: Clear to auscultation, Normal air movement Cardiovascular: Regular rate, Normal S1, Normal S2 Abdominal: Normal bowel sounds Extremities: No cyanosis, No edema, Normal pulses, No tenderness/swelling Skin: No rashes, No breakdown Neuro: Normal gait, Normal speech, Strength at 5/5 X4 ext, Normal tone, Sensation intact, Cranial nerves 3-12 NL, Reflexes 2+ Psych/Mental Status: Mental status NL, Mood NL Labs/Diagnostic Data Labs Test 10/17/24 17:34 10/17/24 05:28 10/16/24 17:54 10/16/24 15:05 Range/Units POC Glucose 145 H 70-106 mg/dl White Blood Count 5.8 4.4-10.8 10^3/uL Red Blood Count 4.19 4.0-5.20 10^6/uL Hemoglobin 13.5 12.2-16.2 g/dL Hematocrit 38.3 36.0-46.0 % Mean Corpuscular Volume 91.4 80.0-100.0 fL Mean Corpuscular Hemoglobin 32.3 H 28.0-32.0 pg Mean Corpuscular Hemoglobin Concent 35.4 32.0-36.0 g/dL Red Cell Distribution Width 13.3 11.8-14.3 % Platelet Count 151 140-450 10^3/uL Mean Platelet Volume 7.2 6.9-10.8 fL Neutrophils (%) (Auto) 62.2 37.0-80.0 % Lymphocytes (%) (Auto) 23.6 10.0-50.0 % Monocytes (%) (Auto) 9.5 0.0-12.0 % Eosinophils (%) (Auto) 4.2 0.0-7.0 % Basophils (%) (Auto) 0.5 0.0-2.0 % Neutrophils # (Auto) 3.6 1.6-8.6 10 ^3/uL Lymphocytes # (Auto) 1.4 0.4-5.4 10 ^3/uL Monocytes # (Auto) 0.6 0-1.3 10 ^3/uL Eosinophils # (Auto) 0.2 0-0.8 10 ^3/uL Basophils # (Auto) 0 0-0.2 10 ^3/uL Nucleated Red Blood Cells 0.0 % Sodium Level 140 136-145 mmol/L Potassium Level 3.9 3.5-5.1 mmol/L Chloride Level 106 98-107 mmol/L Carbon Dioxide Level 23 20-31 mmol/L Anion Gap 11 5-15 Blood Urea Nitrogen 28 H 9-23 mg/dL Creatinine 1.22 H 0.550-1.02 mg/dL Glomerular Filtration Rate Calc 47 >90 mL/min BUN/Creatinine Ratio 23.0 H 10.0-20.0 Serum Glucose 133 H 74-106 mg/dL Calcium Level 9.9 8.7-10.4 mg/dL Total Bilirubin 0.7 0.2-1.0 mg/dL Aspartate Amino Transferase (AST) 17 13-40 U/L Alanine Aminotransferase (ALT) < 9 7-40 U/L Alkaline Phosphatase 49 46-116 U/L Total Protein 6.5 5.7-8.2 g/dL Albumin 4.2 3.2-4.8 g/dL Influenza Type A Antigen Negative Negative Influenza Type B Antigen Negative Negative SARS-CoV-2 Antigen (Rapid) Negative NEGATIVE Urine Color Yellow Yellow Urine Clarity Clear Clear Urine pH 5.0 5.0-9.0 Urine Specific [place] 1.023 1.001-1.035 Urine Protein Negative Negative Urine Ketones Negative Negative Urine Blood Negative Negative /uL Urine Nitrite Negative Negative Urine Bilirubin Negative Negative Urine Urobilinogen Normal Negative mg/dL Urine Leukocyte Esterase Negative Negative /uL Urine RBC <1 0 - 4 /hpf Urine Microscopic WBC 1 0-5 /HPF Urine Squamous Epithelial Cells None seen <5 /hpf Urine Bacteria None seen None Seen /hpf Urine Hyaline Casts Few 0 - 2 /lpf Urine Glucose Trace Normal mg/dL Test 10/16/24 14:45 10/16/24 14:01 Range/Units Troponin I High Sensitivity 3 L </=34 ng/L D-Dimer, Quantitative 0.91 H 0.0-0.49 mg/L FEU B-Type Natriuretic Peptide 79.90 0-100 pg/mL Microbiology Date/Time Source Procedure Growth Status 10/16/24 18:11 Blood Blood Culture - Preliminary NO GROWTH AFTER 24 HOURS OF INCUBATION. Resulted Plan/Recommendation Assessment/plan # acute exacerbation of heart failure with preserved ejection fraction, pr eviously HFrEF -s/p AICD -Last Echo 60% EF Jun 2024 -EKG : no significant ST Changes -normal trops -BNP 79.90 #S/P AICD #? COPD exacerbation # SLE, questionable flare-up # rheumatoid arthritis, questionable flare-up #Hypertension #History of TIA Plan Continue with IV diuresis, 20 mg daily Continue with GDMT will repeat echo to evaluate the EF, and decide for ischaemic workup after Echo results Case was discussed with Dr Nunes Plan discussed with: Patient, Other LUCIA MORAN RESIDENT October 17, 2024 19:45
[2024-10-18] VITALS (10 sets, daily range): BP systolic 94–117; BP diastolic 48–63; PULSE 71–82; RESP 17–20; TEMP 97.9–98.1; O2SAT 93–99
[2024-10-18] MEDS: ALBUTEROL SULF 2.5 MG/0.5ML(0.5%) NEB SOLN NEB PRN (06:33)
[2024-10-18] MEDS ORDERED: PRED20TA2 PO (08:18)
--- NOTE | 2024-10-18 08:22 | DVHDS2 ---
Discharge Summary Date of Admission October 16, 2024 at 17:13 Date of Discharge: October 18, 2024 Labs/Diagnostic Data: Laboratory Results Test 10/18/24 05:47 10/17/24 05:28 10/16/24 17:54 10/16/24 15:05 POC Glucose 207 mg/dl (70-106) White Blood Count 5.8 10^3/uL (4.4-10.8) Red Blood Count 4.19 10^6/uL (4.0-5.20) Hemoglobin 13.5 g/dL (12.2-16.2) Hematocrit 38.3 % (36.0-46.0) Mean Corpuscular Volume 91.4 fL (80.0-100.0) Mean Corpuscular Hemoglobin 32.3 pg (28.0-32.0) Mean Corpuscular Hemoglobin Concent 35.4 g/dL (32.0-36.0) Red Cell Distribution Width 13.3 % (11.8-14.3) Platelet Count 151 10^3/uL (140-450) Mean Platelet Volume 7.2 fL (6.9-10.8) Neutrophils (%) (Auto) 62.2 % (37.0-80.0) Lymphocytes (%) (Auto) 23.6 % (10.0-50.0) Monocytes (%) (Auto) 9.5 % (0.0-12.0) Eosinophils (%) (Auto) 4.2 % (0.0-7.0) Basophils (%) (Auto) 0.5 % (0.0-2.0) Neutrophils # (Auto) 3.6 10 ^3/uL (1.6-8.6) Lymphocytes # (Auto) 1.4 10 ^3/uL (0.4-5.4) Monocytes # (Auto) 0.6 10 ^3/uL (0-1.3) Eosinophils # (Auto) 0.2 10 ^3/uL (0-0.8) Basophils # (Auto) 0 10 ^3/uL (0-0.2) Nucleated Red Blood Cells 0.0 % Sodium Level 140 mmol/L (136-145) Potassium Level 3.9 mmol/L (3.5-5.1) Chloride Level 106 mmol/L (98-107) Carbon Dioxide Level 23 mmol/L (20-31) Anion Gap 11 (5-15) Blood Urea Nitrogen 28 mg/dL (9-23) Creatinine 1.22 mg/dL (0.550-1.02) Glomerular Filtration Rate Calc 47 mL/min (>90) BUN/Creatinine Ratio 23.0 (10.0-20.0) Serum Glucose 133 mg/dL (74-106) Calcium Level 9.9 mg/dL (8.7-10.4) Total Bilirubin 0.7 mg/dL (0.2-1.0) Aspartate Amino Transferase (AST) 17 U/L (13-40) Alanine Aminotransferase (ALT) < 9 U/L (7-40) Alkaline Phosphatase 49 U/L (46-116) Total Protein 6.5 g/dL (5.7-8.2) Albumin 4.2 g/dL (3.2-4.8) Influenza Type A Antigen Negative (Negative) Influenza Type B Antigen Negative (Negative) SARS-CoV-2 Antigen (Rapid) Negative (NEGATIVE) Urine Color Yellow (Yellow) Urine Clarity Clear (Clear) Urine pH 5.0 (5.0-9.0) Urine Specific D Hanis 1.023 (1.001-1.035) Urine Protein Negative (Negative) Urine Ketones Negative (Negative) Urine Blood Negative /uL (Negative) Urine Nitrite Negative (Negative) Urine Bilirubin Negative (Negative) Urine Urobilinogen Normal mg/dL (Negative) Urine Leukocyte Esterase Negative /uL (Negative) Urine RBC <1 /hpf (0 - 4) Urine Microscopic WBC 1 /HPF (0-5) Urine Squamous Epithelial Cells None seen /hpf (<5) Urine Bacteria None seen /hpf (None Seen) Urine Hyaline Casts Few /lpf (0 - 2) Urine Glucose Trace mg/dL (Normal) Test 10/16/24 14:45 10/16/24 14:01 Troponin I High Sensitivity 3 ng/L (</=34) D-Dimer, Quantitative 0.91 mg/L FEU (0.0-0.49) B-Type Natriuretic Peptide 79.90 pg/mL (0-100) Other Laboratory Tests 10/17/24 05:28 Brief Hx & Hospital Course: 73-year-old female with past medical history of COPD, CHF, lupus, rheumatoid arthritis, asthma, hypertension and TIA presented with complaints of shortness of breath that started Wednesday. Patient had shortness of breath on minimal activity, Patient was treated with IV Lasix Patient is currently on room air, able to talk without any distress. Last echo done showed ejection fraction of 60% in June 2024, had left heart catheterization done in 2021 which was not showing evidence of significant coronary artery disease Patient had AICD placed because she was mentioning her ejection fraction was 20% and then it improved to 40-45% and is currently 60%. Patient will have an ECHO done today, will see Dr. Nunes in this office this week. Patient will be discharged with Prednisone for 3 day for possible COPD Exacerbation. Will see me in the office in 2 weeks. Patient advised to monitor BP at home, BP lower side advised to HOLD Entresto till seen by Dr. Nunes Condition at Discharge: Poor Final Diagnosis/Problems List COPD Exacerbation Possible Acute Systolic CHF Morbidly Obese RA Discharge Disposition: Home Discharge Instruct/Medications Diet: Cardiac 2g Na,low cholest Activity: Light activity Follow Up/Referral: Dr. Nunes in 2-3 days Medications: Prednisone Discharge Statement: "Patient was advised to return to the ER or call 911 if any headaches, dizziness, shortness of breath, chest pain, abdominal pain, bleeding, fevers, or worsening of medical condition. Patient was counseled about treatment plan, medications, possible side effects, patientverbalized understanding. All questions were answered to the best of my ability. This discharge took greater then 30 minutes in planning, reviewing documentation, counseling the patient, and discussing with other team members." ASSESSMENT ASSESSMENT Assessment Date of Service: October 18, 2024 Billing Provider: WILLIAM MCCLURE MD Common Visit Codes: 16143-XLA/OBS DISCH DAY >30min WILLIAM MCCLURE MD October 18, 2024 08:22
[2024-10-18] MEDS: predniSONE 20 MG TAB PO SCH (09:39)
--- NOTE | 2024-10-19 07:57 | ECG ---
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
--- NOTE | 2024-10-19 11:47 | DVHSR ---
APPROVED REPORT EXAM: Two-dimensional and M-mode echocardiogram with Doppler and color Doppler. Blood Pressure: 98/55 mmHg INDICATION CHF Surgery/Intervention Pacemaker: RISK FACTORS Obesity: Height: 5'2, Weight: 242 DIMENSIONS LVDd4.2 (3.8-5.7cm)LA (2D) (1.9-4.0cm)Aortic Root3.1 (2.0-3.7cm) LVDs2.9 (2.5-4.0cm)LA (MM) (1.9-4.0cm)Aortic Cusp Exc1.5 (1.5-2.0cm) EF (%) 60.0 (55-70%)Rt. Atrium3.8 (1.9-4.0cm)Asc. Aorta cm IVSd1.1 (0.7-1.1cm)RV (D) (1.8-2.4cm) PWd1.0 (0.7-1.1cm) Mitral Valve MitralMitral Stenosis E wave0.61m/sMV Mean GR.mmHg A wave0.86m/sMV Peak GR.25mmHg E/A ratio0.72D MVAcm2 DECEL [id number] 1/2 [place] Aortic Valve Aortic ValveAortic Stenosis V10.89m/Rocky Mean GR.5mmHg V21.46m/[place] Peak GR.9mmHg LVOT Diameter2.2 (1.8-2.4cm)Doppler AVA2.32cm2 Pulmonic Valve V21.08m/s Tricuspid Valve TR Velocity2.46m/s [id number] Conclusion lvef 55% by visual estimate normal RV function left atrium enlarged mild no severe valve abnormalities noted pacing lead in RA
== END 2024-10-18 16:25 | disposition home or self-care (01) | DRG 291 ==
LOC: ER 13:04 → OVERFLOW 17:13 → TELE-WESTW 21:32
PROVIDERS: ADMIT Internal Medicine; ATTEND Internal Medicine
DX: I11.0 Hypertensive heart disease with heart failure (principal); I50.21 Acute systolic (congestive) heart failure; J44.1 Chronic obstructive pulmonary disease with (acute) exacerbation; Z68.42 Body mass index [BMI] 45.0-49.9, adult; J44.89 Other specified chronic obstructive pulmonary disease; R73.9 Hyperglycemia, unspecified; E66.01 Morbid (severe) obesity due to excess calories; Z20.822 Contact with and (suspected) exposure to COVID-19; G90.9 Disorder of the autonomic nervous system, unspecified; M06.9 Rheumatoid arthritis, unspecified; Z83.3 Family history of diabetes mellitus; Z86.73 Personal history of transient ischemic attack (TIA), and cerebral infarction without residual deficits; Z88.1 Allergy status to other antibiotic agents; Z90.710 Acquired absence of both cervix and uterus; Z79.82 Long term (current) use of aspirin; Z91.013 Allergy to seafood; Z88.2 Allergy status to sulfonamides; Z91.048 Other nonmedicinal substance allergy status; Z80.3 Family history of malignant neoplasm of breast; Z82.69 Family history of other diseases of the musculoskeletal system and connective tissue
CPT/HCPCS: 36415; 71046; 80048; 80053; 81001; 82962; 83036; 83880; 84484; 85025; 85379; 87040; 87426; 87804; 93005; 93306; 93970; 94640; 99291; G0378; J1815

== ENCOUNTER 2024-10-25 01:49 | Inpatient (IN) | payer OTHER ==
[2024-10-25] VITALS (14 sets, daily range): BP systolic 108–119; BP diastolic 50–70; PULSE 64–91; RESP 8–20; TEMP 97.7–97.9; O2SAT 94–100
[~2024-10-25] VITALS: Ht 157.5 cm; Wt 108.3 kg
[~2024-10-25 01:49] MED LIST changes: -FLUT1INH6 INH; +PRED20TA2 PO; -SACU1TAB PO
--- NOTE | 2024-10-25 02:10 | ED.PDOC ---
History of Present Illness HPI Comments 73-year-old female with a prior history of congestive heart failure and pacemaker/defibrillator placement now complains of some chest tightness/chest pain with a feeling of shortness of breath for the last 2 hours. Unprovoked. Chief Complaint: Shortness of Breath Time Seen by MD: 01:56 Primary Care Provider: Leonora Allergies: Coded Allergies: Doxycycline (Verified Allergy, Unknown, 09/19/21) Erythromycin (Verified Allergy, Unknown, 08/18/19) Fish Allergy (Verified Allergy, Unknown, 09/19/21) Nickel (Verified Allergy, Unknown, 08/18/19) Sulfa Antibiotics (Verified Allergy, Unknown, 08/18/19) Home Meds Active Scripts Prednisone (Prednisone) 20 Mg Tab, 20 MG PO DAILY for 3 Days, #3 TAB Prov:WILLIAM MCCLURE MD 10/18/24 Reported Medications Etanercept (Enbrel Sureclick) 50 Mg/Ml Inj, 1 SYR SUBCUT QWEEKLY for 28 Days, #4 02/28/24 Furosemide (Furosemide) 40 Mg Tab, 1 TAB PO DAILY 02/26/24 Hydrocortone (Hydrocortisone 1%) 1 Applic Ap, 1 APPLIC TOP BID Apply topically to affected area twice a day. 11/22/23 Ergocalciferol (Vitamin D) 50,000 Unit Cap, 1 CP PO QWEEKLY 11/22/23 Metoprolol Succinate (Metoprolol Succinate Er) 25 Mg Tab, 0.5 TAB PO DAILY for 90 Days, #45 11/22/23 Alendronate Sodium (Alendronate Sodium) 70 Mg Tab, 1 TAB PO QWEEKLY 11/22/23 Albuterol Sulfate (Albuterol Sulfate Hfa) 108 Mcg/Act Aer, 2 PUFF INH Q4-6HR 11/22/23 Potassium Chloride (Klor-Con M10) 10 Meq Tab, 1 TAB PO DAILYPRN PRN for TAKE WITH LASIX, #30 TAB 5 Refills POTASSIUM CHLORIDE ER 08/18/19 Aspirin (Asa) 81 Mg Ch, 1 TAB PO DAILY 10/12/11 Discontinued Reported Medications Sacubitril-Valsartan (Entresto 24-26 mg) 1 Tab Tab, 1 TAB PO BID 11/22/23 Information Source: Patient, Emergency Med Personnel Mode of Arrival: EMS Severity: Moderate Timing: Hours Duration: Since onset Past Medical History PAST MEDICAL HISTORY: Arthritis, Asthma, CHF, COPD, HTN, TIA Surgical History: BTL, Hernia Repair, Pacemaker ACCOUNT SPECIALIST History: No Pertinent ACCOUNT SPECIALIST History Family History Family History: Family hx of DM, Family hx of heart barak Social History Smoker: Non-Smoker Alcohol: Occasionally Drugs: Denies Drug Use Lives In: Home Constitutional: reports: malaise Respiratory: reports: shortness of breath Cardiovascular: reports: chest pain Neurological: reports: dizziness All Other Systems: Reviewed and Negative Physical Exam General Appearance: Mild Distress, Obese HEENT: Normal ENT Inspection, Pharynx Normal, TMs Normal Neck: Full Range of Motion, Non-Tender, Normal, Normal Inspection Respiratory: Decreased Breath Sounds, No Accessory Muscle Use Cardiovascular: No Edema, No JVD, No Murmur, No Gallop, Normal Peripheral Pulses, Regular Rate/Rhythm Breast Exam: Deferred Gastrointestinal: No Organomegaly, Non Tender, No Pulsatile Mass, Normal Bowel Sounds, Soft Genitalia: Deferred Pelvic: Deferred Rectal: Deferred Extremities: No calf tenderness, Normal capillary refill, Normal inspection, Normal range of motion, Non-tender, No pedal edema Musculoskeletal : Apperance: Normal Neurologic: Alert, skates operator II-XII nml as Tested, No Motor Deficits, Normal Affect, Normal Mood, No Sensory Deficits Cerebellar Function: Normal Reflexes: Normal Skin: Dry, Normal Color, Warm Lymphatic: No Adenopathy Was a procedure done? Was a procedure done?: No Differential Dx Considerations may include: Differential diagnosis includes but is not limited to: asthma, pneumonia, congestive heart failure, pleural effusion, empyema, pulmonary embolus, and others X-Ray, Labs, Meds, VS Vital Signs Date Time Temp Pulse Resp B/P (MAP) Pulse Ox O2 Delivery O2 Flow Rate FiO2 10/25/24 02:21 90 10/25/24 02:20 90 8 94 Room Air* 0 21 10/25/24 02:20 98.7 90 8 128/67 (87) 94 98.7 10/25/24 01:57 98.5 108 15 139/76 (97) 97 98.5 10/25/24 01:50 105 Lab Test 10/25/24 03:05 10/25/24 02:13 Range/Units Troponin I High Sensitivity 3 L 4 </=34 ng/L White Blood Count 6.9 4.4-10.8 10^3/uL Red Blood Count 4.03 4.0-5.20 10^6/uL Hemoglobin 13.0 12.2-16.2 g/dL Hematocrit 37.2 36.0-46.0 % Mean Corpuscular Volume 92.4 80.0-100.0 fL Mean Corpuscular Hemoglobin 32.3 H 28.0-32.0 pg Mean Corpuscular Hemoglobin Concent 35.0 32.0-36.0 g/dL Red Cell Distribution Width 13.0 11.8-14.3 % Platelet Count 145 140-450 10^3/uL Mean Platelet Volume 7.7 6.9-10.8 fL Neutrophils (%) (Auto) 64.2 37.0-80.0 % Lymphocytes (%) (Auto) 24.9 10.0-50.0 % Monocytes (%) (Auto) 7.3 0.0-12.0 % Eosinophils (%) (Auto) 2.7 0.0-7.0 % Basophils (%) (Auto) 0.9 0.0-2.0 % Neutrophils # (Auto) 4.4 1.6-8.6 10 ^3/uL Lymphocytes # (Auto) 1.7 0.4-5.4 10 ^3/uL Monocytes # (Auto) 0.5 0-1.3 10 ^3/uL Eosinophils # (Auto) 0.2 0-0.8 10 ^3/uL Basophils # (Auto) 0.1 0-0.2 10 ^3/uL Nucleated Red Blood Cells 0.1 % Prothrombin Time 10.3 9.3-11.8 sec Prothrombin Time INR 0.97 0.9-1.15 Activated Partial Thromboplast Time 25.7 24.5-34.5 SEC Sodium Level 137 136-145 mmol/L Potassium Level 3.7 3.5-5.1 mmol/L Chloride Level 105 98-107 mmol/L Carbon Dioxide Level 20 20-31 mmol/L Anion Gap 12 5-15 Blood Urea Nitrogen 29 H 9-23 mg/dL Creatinine 1.35 H 0.550-1.02 mg/dL Glomerular Filtration Rate Calc 42 >90 mL/min BUN/Creatinine Ratio 21.5 H 10.0-20.0 Serum Glucose 201 H 74-106 mg/dL Calcium Level 9.2 8.7-10.4 mg/dL Total Bilirubin 0.6 0.2-1.0 mg/dL Aspartate Amino Transferase (AST) 16 13-40 U/L Alanine Aminotransferase (ALT) < 9 7-40 U/L Alkaline Phosphatase 52 46-116 U/L B-Type Natriuretic Peptide 34.30 0-100 pg/mL Total Protein 6.3 5.7-8.2 g/dL Albumin 4.1 3.2-4.8 g/dL Time of 1ST Reevaluation: 02:09 Reevaluation 1ST: Unchanged Patient Education/Counseling: Diagnosis, Treatment Family Education/Counseling: No Family Present Departure 1 Departure Time of Disposition: 05:01 Impression: Primary Impression: CHF (congestive heart failure) Additional Impression: ACS (acute coronary syndrome) Disposition: 09 ADMITTED INPATIENT Admit to: [facility] Condition: Guarded Comments Chest Pain and Shortness of Breath in 73-year-old Female with History of CHF Chief Complaint: Chest pain and shortness of breath History of Present Illness: 73-year-old female with known history of congestive heart failure and pacemaker placement presents to the Emergency Department with chest tightness, chest pain, and shortness of breath that began approximately two hours prior to arrival. The patient is currently requiring supplemental oxygen for symptom management. 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 Congestive Heart Failure 2. Cardiac conduction disorder requiring pacemaker Physical Exam: Respiratory: - Diminished breath sounds at bilateral bases - Requiring supplemental oxygen Lab Results: CBC: Within normal limits BUN/Creatinine: Acute kidney injury with creatinine 1.35 Troponin: Normal at 4 BNP: Normal at 34 Imaging and Other Relevant Results: Chest X-ray: No acute pathology Medical Decision Making: Summary Statement: 73-year-old female with history of CHF presenting with acute onset chest pain and shortness of breath, requiring oxygen supplementation. Problem List: 1. Acute chest pain 2. Shortness of breath 3. Acute kidney injury 4. Congestive heart failure Differential Diagnosis: 1. Acute coronary syndrome 2. Acute decompensated heart failure 3. Pulmonary embolism 4. Acute kidney injury ED Course: Patient presented with chest pain and shortness of breath. Initial workup included cardiac enzymes, BNP, renal function, and chest imaging. Patient was given aspirin and requires oxygen supplementation. Decision made to admit for further evaluation of possible acute coronary syndrome. Assessment and Plan: 1. Acute chest pain/Possible Acute Coronary Syndrome: - Admit to hospital for further evaluation and management - Initiated aspirin - Continuous cardiac monitoring - Serial troponins 2. Acute Kidney Injury: - Monitor renal function - Careful fluid management considering cardiac history 3. Respiratory Status: - Continue oxygen supplementation as needed - Monitor oxygen saturation Billing Information: ICD-10: R07.9 - Chest pain, unspecified ICD-10: R06.02 - Shortness of breath ICD-10: I50.9 - Heart failure, unspecified ICD-10: N17.9 - Acute kidney failure, unspecified Critical Care Note Critical Care Time?: Yes (35 min-critical care time only) Critical care comment: Total critical care time: Approximately 36 minutes Due to a high probability of clinically significant, life threatening deterioration, the patient required my highest level of preparedness to intervene emergently and I personally spent this critical care time directly and personally managing the patient. This critical care time included obtaining a history; examining the patient; pulse oximetry; ordering and review of studies; arranging urgent treatment with development of a management plan; evaluation of patient's response to treatment; frequent reassessment; and, discussions with other providers. This critical care time was performed to assess and manage the high probability of imminent, life-threatening deterioration that could result in multi-organ failure. It was exclusive of separately billable procedures and treating other patients. Stability Stability form required: No Heart Score Heart Score: Heart Score Response (Comments) Value History Moderate Suspicious 1 EKG Repolarization Disturb 1 Age >65 2 Risk Factors 1 or 2 risk factors 1 Troponin Normal limit 0 Total 5 FEI FELIZ MD Oct 25, 2024 02:10
[2024-10-25 02:30] LABS: Basophils # (auto) 0.1 10 ^3/uL (0-0.2); Basophils % (auto) 0.9 % (0.0-2.0); Eosinophils # (auto) 0.2 10 ^3/uL (0-0.8); Eosinophils % (auto) 2.7 % (0.0-7.0); Hematocrit 37.2 % (36.0-46.0); Lymphocytes # (auto) 1.7 10 ^3/uL (0.4-5.4); Lymphocytes % (auto) 24.9 % (10.0-50.0); Mean Corpuscular Hemoglobin 32.3 pg (28.0-32.0); Mean Corpuscular Volume 92.4 fL (80.0-100.0); Monocytes # (auto) 0.5 10 ^3/uL (0-1.3); Monocytes % (auto) 7.3 % (0.0-12.0); Neutrophils # (auto) 4.4 10 ^3/uL (1.6-8.6); Neutrophils % (auto) 64.2 % (37.0-80.0); Nucleated Red Blood Cells % 0.1 %; Platelet Count (auto) 145 10^3/uL (140-450); Red Blood Cells 4.03 10^6/uL (4.0-5.20); White Blood Cell 6.9 10^3/uL (4.4-10.8)
[2024-10-25 02:52] LABS: Albumin 4.1 g/dL (3.2-4.8); Alkaline Phosphatase 52 U/L (46-116); Anion Gap 12 (5-15); Aspartate Aminotransferase 16 U/L (13-40); BUN/Creatinine Ratio 21.5 (10.0-20.0); Bilirubin, Total 0.6 mg/dL (0.2-1.0); Calcium 9.2 mg/dL (8.7-10.4); Carbon Dioxide 20 mmol/L (20-31); Chloride 105 mmol/L (98-107); Potassium 3.7 mmol/L (3.5-5.1); Sodium 137 mmol/L (136-145); Total Protein 6.3 g/dL (5.7-8.2)
[2024-10-25 02:58] LABS: Alanine Aminotransferase < 9 U/L (7-40); Blood Urea Nitrogen 29 mg/dL (9-23); Glucose 201 mg/dL (74-106)
[2024-10-25 03:01] LABS: INR 0.97 (0.9-1.15); Partial Thromboplastin Time 25.7 SEC (24.5-34.5); Prothrombin Time 10.3 sec (9.3-11.8)
--- NOTE | 2024-10-25 04:23 | ECG ---
[facility] Test Date: 2024-10-25 Test Time: 01:50:51 Pat Name: SIOBHAN ASHRAF Department: ED Room: 1009- Gender: F Change Director: HALIE : 1950 Requested By: FEI FELIZ Order Number: [id number] Reading MD: James Nunes Measurements Intervals [place] Rate: 105 P: 75 SD: 145 QRS: 31 QRSD: 131 T: -15 QT: 371 QTc: 491 Interpretive Statements Sinus tachycardia Right bundle branch block Electronically Signed On 10-25-2024 15:00:14 PDT by James Nunes Please click the below link to view image of tracing.
--- NOTE | 2024-10-25 04:24 | DVH ---
CHEST RADIOGRAPH Indication: SOB Technique: Single frontal view of the chest was obtained Comparison: XY CHEST PORTABLE on DOS: 02/26/24 FINDINGS: Lines and Tubes: None Lungs: No focal consolidation. Pleura: No effusion. No pneumothorax. Cardiomediastinal contours: AICD noted. Bones: No acute osseous abnormality. IMPRESSION: 1. No acute cardiopulmonary disease.
[2024-10-25] MEDS ORDERED: DEXTROSE (50%) 50ML SYRG IV PRN (06:15)
[2024-10-25] MEDS: LEVALBUTEROL HCL 1.25 MG/3 ML NEB NEB SCH ×2 (06:24→18:26)
--- NOTE | 2024-10-25 06:24 | DVHHPRES ---
History of Present Illness Resident Creating Document: MERE DAVALOS RESIDENT History of Present Illness Patient is a 73-year-old female with a past medical history of asthma, heart failure with improved ejection fraction, arthritis, lupus was brought in by EMS after she complained of shortness of breath at home. Patient reported that she was recently discharged from the hospital after being admitted for similar complaint of shortness of breath and was discharged on prednisolone and inhalers Breo Ellipta and rescue inhalers albuterol. Yesterday in the evening she had an episode of shortness of breath which did not improve on taking the nebulizer and the patient felt very weak and was not able to breathe and had associated chest heaviness in the middle and left chest, was nonradiating following which she called the EMS. Patient is not on oxygen at home. Last week she was taken off of her medications which were Entresto, metoprolol succinate and Lasix. She reports yesterday she had leg swelling following which she took Lasix tablet 20 mg following which the swelling improved. Patient has been having a dry cough without any phlegm in the last week, no fever and chills, no sick contacts. She also reports of urinary frequency since the last 2 days. Past medical history: asthma, heart failure with improved ejection fraction, ar thritis, lupus Past surgical history: Hysterectomy, hernia repair, AICD placement Social history: Patient lives with the and denies smoking, alcohol, drug use Home medications: Aspirin, Lasix 40 mg, metoprolol succinate 25 mg, Entresto 24-261 tab b.i.d. with the medications were stopped 1 week ago apparently for patient having low blood pressure Breo Ellipta inhaler, albuterol rescue inhaler, infusion therapy for arthritis and lupus with Dr. Mclain PCP Dr. Mcclure Review of Systems Review of Systems Seen and examined at the bedside Patient is currently on oxygen at 1 L/min and reports shortness of breath has improved Denies chest pain/pressure, palpitations, cough or phlegm Feels weak Allergies: Coded Allergies: Doxycycline (Verified Allergy, Unknown, 09/19/21) Erythromycin (Verified Allergy, Unknown, 08/18/19) Fish Allergy (Verified Allergy, Unknown, 09/19/21) Nickel (Verified Allergy, Unknown, 08/18/19) Sulfa Antibiotics (Verified Allergy, Unknown, 08/18/19) Exam Vital Signs Vital Signs Date Time Temp Pulse Resp B/P (MAP) Pulse Ox O2 Delivery O2 Flow Rate FiO2 10/25/24 02:21 90 10/25/24 02:20 8 94 Room Air* 0 21 10/25/24 02:20 98.7 128/67 (87) 98.7 Exam Gen - no pallor, no icterus, no cyanosis, no clubbing, no LAD, no edema . Skin - Patients skin is warm and dry. HEENT - normocephalic, atraumatic, moist mucous membranes. Neck - full ROM, no LAD, no JVD Pulmonary - B/L equal air entry with slightly diminished breath sounds, no crackles, no wheezing, no stridor. cardiovascular - regular S1,S2 heard, no added sounds, no murmurs heard. peripheral pulses normal radial 2+, pedal 2+. capillary refill normal <2 secs. GI - soft, mild generalized discomfort on palpation of abdomen. no hepatospleenomegaly. Bowel sounds normoactive Neurological - Patient is A/O X 3 . Bilateral upper extremity strength 5/5, bilateral lower extremity strength 4/5, no facial droop, normal speech, no tremor, no sensory deficiets. Labs/Xrays Labs Test 10/25/24 03:05 10/25/24 02:13 Range/Units Troponin I High Sensitivity 3 L </=34 ng/L White Blood Count 6.9 4.4-10.8 10^3/uL Red Blood Count 4.03 4.0-5.20 10^6/uL Hemoglobin 13.0 12.2-16.2 g/dL Hematocrit 37.2 36.0-46.0 % Mean Corpuscular Volume 92.4 80.0-100.0 fL Mean Corpuscular Hemoglobin 32.3 H 28.0-32.0 pg Mean Corpuscular Hemoglobin Concent 35.0 32.0-36.0 g/dL Red Cell Distribution Width 13.0 11.8-14.3 % Platelet Count 145 140-450 10^3/uL Mean Platelet Volume 7.7 6.9-10.8 fL Neutrophils (%) (Auto) 64.2 37.0-80.0 % Lymphocytes (%) (Auto) 24.9 10.0-50.0 % Monocytes (%) (Auto) 7.3 0.0-12.0 % Eosinophils (%) (Auto) 2.7 0.0-7.0 % Basophils (%) (Auto) 0.9 0.0-2.0 % Neutrophils # (Auto) 4.4 1.6-8.6 10 ^3/uL Lymphocytes # (Auto) 1.7 0.4-5.4 10 ^3/uL Monocytes # (Auto) 0.5 0-1.3 10 ^3/uL Eosinophils # (Auto) 0.2 0-0.8 10 ^3/uL Basophils # (Auto) 0.1 0-0.2 10 ^3/uL Nucleated Red Blood Cells 0.1 % Prothrombin Time 10.3 9.3-11.8 sec Prothrombin Time INR 0.97 0.9-1.15 Activated Partial Thromboplast Time 25.7 24.5-34.5 SEC Sodium Level 137 136-145 mmol/L Potassium Level 3.7 3.5-5.1 mmol/L Chloride Level 105 98-107 mmol/L Carbon Dioxide Level 20 20-31 mmol/L Anion Gap 12 5-15 Blood Urea Nitrogen 29 H 9-23 mg/dL Creatinine 1.35 H 0.550-1.02 mg/dL Glomerular Filtration Rate Calc 42 >90 mL/min BUN/Creatinine Ratio 21.5 H 10.0-20.0 Serum Glucose 201 H 74-106 mg/dL Calcium Level 9.2 8.7-10.4 mg/dL Total Bilirubin 0.6 0.2-1.0 mg/dL Aspartate Amino Transferase (AST) 16 13-40 U/L Alanine Aminotransferase (ALT) < 9 7-40 U/L Alkaline Phosphatase 52 46-116 U/L B-Type Natriuretic Peptide 34.30 0-100 pg/mL Total Protein 6.3 5.7-8.2 g/dL Albumin 4.1 3.2-4.8 g/dL Assessment/Plan Assessment/Plan Acute on chronic hypoxic respiratory failure Possible Asthma exacerbation Possible pneumonitis due to viral/gram +/- bacterial - duo nebs q.6 hours - Solu-Medrol 40 mg daily - COVID and influenza pending - MRSA screen pending - IV ceftriaxone Acute on chronic Heart failure with improved ejection fraction AICD - for the last 1 week patient has not been taking her medications which include Entresto, metoprolol succinate, Lasix - echo from September 2024 shows LVEF 55% with normal RV function, no severe valve abnormalities - 12 lead ECG shows sinus tachycardia with a RBBB no ST or T-wave changes - started on Lasix 40 mg IV daily (pulmonary vascular congestion seen on chest x-ray compared to previous) VALE on CKD stage 3 likely due to be VMN Possible UTI - symptoms of UTI, urinalysis pending - patient is on ceftriaxone Type 2 diabetes mellitus with hyperglycemia - newly diagnosed at last admission with a HbA1c 7% ( September 2024) - mild ISS DVT prophylaxis: Enoxaparin PUD prophylaxis: Protonix Goals of care discussed with the patient for over 23 minutes. Full code Time Spent: 37 minutes Plan discussed with Dr. Mcclure Plan discussed with: Patient My Orders Orders - MERE DAVALOS Procedure Category Date Status Time Admit ADMIT 10/25/24 Verified 05:39 Oxygen By Nasal RT 10/25/24 Verified Cannula 05:39 Stat Ekg For Chest SONU 10/25/24 Verified Pain 05:39 Rapid Influenza A&B LAB 10/25/24 Verified 05:39 Covid19 Antigen Cheryl LAB 10/25/24 Verified Ipratropium Medneb PHA 10/25/24 Verified (Atrovent Medneb) 06:00 Methylprednisolone PHA 10/25/24 Verified Sod Succ (Solu Medrol 10:00 Mrsa Screen JARED 10/25/24 Verified 05:39 Furosemide Injection PHA 10/25/24 Verified (Lasix Injection) 05:45 Doxycycline Tablet PHA 10/25/24 Verified (Vibramycin Tablet) 10:00 Levalbuterol Hcl PHA 10/25/24 Verified (Xopenex Medneb) 06:00 Acetaminophen Tablet PHA 10/25/24 Verified (Tylenol Tablet) 05:45 Furosemide Injection PHA 10/26/24 Verified (Lasix Injection) 10:00 Date of Service: Oct 25, 2024 Billing Provider: WILLIAM MCCLURE MD Common Visit Codes: 42586-CGJHGNG INP/OBS CARE (HIGH) Secondary Visit Codes: 04302-[id number] CARE PLAN 30 MINUTES MERE DAVALOS RESIDENT Oct 25, 2024 06:24
[2024-10-25] MEDS: IPRATROPIUM BROM 0.5 MG/2.5ML INH SOL NEB SCH ×2 (06:25→18:26)
[2024-10-25] MEDS: FUROSEMIDE 40 MG/4 ML VIAL IV ONE (06:28)
[2024-10-25 06:54] LABS: COVID19 ANTIGEN SOFIA FIA NEGATIVE (NEGATIVE); Rapid Influenza A Negative (Negative); Rapid Influenza B Negative (Negative)
[2024-10-25] MEDS: InsuLIN REG 1unit/0.01ml Soln (100units/ml) SC SCH (06:58)
[2024-10-25] MEDS: ACCU-CHEK COMFORT CURVE STRIP VI SCH (06:58)
[2024-10-25 08:26] LABS: Urine Bacteria None Seen /hpf (None Seen)
[2024-10-25 08:34] LABS: Urine Blood Negative /uL (Negative); Urine Clarity Clear (Clear); Urine Color Colorless (Yellow); Urine Protein, UAD Negative (Negative); Urine Specific Gravity 1.005 (1.001-1.035); Urine Squamous Epithelial Cell None Seen /hpf (<5); Urine Urobilinogen Normal (Negative); Urine pH 5.5 (5.0-9.0)
[2024-10-25] MEDS ORDERED: DOXYCYCLINE 100 MG TAB/CAP PO SCH (10:00)
[2024-10-25] MEDS: methylPREDNISolone SOD SUCC 40 MG/ML VL IV SCH (10:36)
[2024-10-25] MEDS: cefTRIAXone 1GM/50ML D5W 50 ML IV SCH (10:36)
[2024-10-25] MEDS: ENOXAPARIN SOD 40 MG/0.4 ML SYRINGE SC SCH (10:37)
--- NOTE | 2024-10-25 16:58 | DVHPNRES ---
Progress Note Date Seen: Oct 25, 2024 Resident Creating Document: NICOLE PHILIPPE RESIDENT Medical Necessity Reason Pt with a Central, PICC or Fol: No Subjective Review of Systems 73 YO F with a history of heart failure, asthma, rheumatoid arthritis, and lupus affecting her kidneys, presents to the hospital with acute shortness of breath and dizziness. She was discharged from the hospital one week ago and had been managing her condition at home with breathing treatments. The patient reports that yesterday she experienced some dizziness but was otherwise stable. However, last night she woke up with severe difficulty breathing. She had not performed her usual evening breathing treatment. Her attempted to assist her with a breathing treatment, but afterwards she found herself unable to walk and felt she would pass out if she tried to lie down. Concerned by her symptoms, her called paramedics. The patient's medical history is significant for heart failure, diagnosed in 2019. She has an implantable cardioverter-defibrillator (ICD) and reports a complex history with this device, including a malfunction that required replacement of a lead wire at [facility]. She also has a history of asthma, which appears to be exacerbated in the current episode. Regarding substance use, Ms. Graham denies any history of smoking and reports only occasional wine consumption. She lives with her , who appears to be involved in her care. Patient is currently on oxygen at 2 L/min and reports shortness of breath has improved Denies chest pain/pressure, palpitations, cough or phlegm Objective vital signs Vital Sign Date Time Temp Pulse Resp B/P (MAP) Pulse Ox O2 Delivery O2 Flow Rate FiO2 10/25/24 15:15 88 18 96 Nasal Cannula* 2 28 10/25/24 15:15 97.7 108/60 (76) 97.7 medications Current Medications Medications Dose Ordered Sig/Kristel Route Start Time Stop Time Status Last Admin Dose Admin Methylprednisolone Sodium Succinate 40 mg DAILY IV 10/25/24 10:00 10/25/24 10:36 40 MG Acetaminophen 650 mg Q6HP PRN PO 10/25/24 05:45 Ceftriaxone Sodium 50 ml @ 100 mls/hr DAILY@09 IV 10/25/24 09:00 10/25/24 10:36 100 MLS/HR Enoxaparin Sodium 40 mg DAILY SC 10/25/24 10:00 10/25/24 10:37 40 MG Pantoprazole Sodium 40 mg DAILY@0600 PO 10/26/24 06:00 Diagnostic Test (Pha) 1 strip ACHS 10/25/24 07:00 10/25/24 16:21 1 STRIP Insulin Human Regular ACHS SC 10/25/24 07:00 10/25/24 16:19 8 UNITS Dextrose 50 ml UD PRN IV 10/25/24 06:15 Ipratropium [place] 0.5 mg Q4HR NEB 10/25/24 18:00 Levalbuterol HCl 0.625 mg Q4HR NEB 10/25/24 18:00 Examination Gen - no pallor, no icterus, no cyanosis, no clubbing, no LAD, no edema . Skin - Patients skin is warm and dry. HEENT - normocephalic, atraumatic, moist mucous membranes. Neck - full ROM, no LAD, no JVD Pulmonary - B/L equal air entry with slightly diminished breath sounds, no crackles, no wheezing, no stridor. cardiovascular - regular S1,S2 heard, no added sounds, no murmurs heard. peripheral pulses normal radial 2+, pedal 2+. capillary refill normal <2 secs. GI - soft, mild generalized discomfort on palpation of abdomen. no hepatospleenomegaly. Bowel sounds normoactive Neurological - Patient is A/O X 3 . laboratory and microbiology Laboratory Tests 10/25/24 02:13 Test 10/25/24 02:13 Range/Units Serum Glucose 201 H 74-106 mg/dL Microbiology Date/Time Source Procedure Growth Status 10/25/24 06:06 Nose MRSA Screen - Final Complete Problem List/Assessment/Plan Problem List/Assessment/Plan # Acute on chronic hypoxic respiratory failure # Possible Asthma exacerbation # Possible pneumonitis due to viral/gram +/- bacterial - duo nebs q.4 hours - Solu-Medrol 40 mg daily - COVID and influenza negative - IV ceftriaxone. 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 Full code Plan discussed with Dr. Grigsby Plan discussed with: Patient My Orders My Orders Orders - NICOLE PHILIPPE RESIDENT Procedure Category Date Status Time Ipratropium Medneb PHA 10/25/24 In Process (Atrovent Medneb) 18:00 Levalbuterol Hcl PHA 10/25/24 In Process (Xopenex Medneb) 18:00 NICOLE PHILIPPE RESIDENT Oct 25, 2024 16:58
[2024-10-25] MEDS: ACETAMINOPHEN 325 MG TAB PO PRN (18:18)
[2024-10-26] VITALS (16 sets, daily range): BP systolic 93–103; BP diastolic 47–67; PULSE 63–88; RESP 14–18; TEMP 97.4–98.8; O2SAT 95–100
[2024-10-26] MEDS: PANTOPRAZOLE 40 MG TAB PO SCH (06:15)
[2024-10-26 06:35] LABS: Basophils # (auto) 0.1 10 ^3/uL (0-0.2); Basophils % (auto) 0.7 % (0.0-2.0); Eosinophils # (auto) 0 10 ^3/uL (0-0.8); Eosinophils % (auto) 0.5 % (0.0-7.0); Hematocrit 36.7 % (36.0-46.0); Lymphocytes # (auto) 0.5 10 ^3/uL (0.4-5.4); Lymphocytes % (auto) 6.9 % (10.0-50.0); Mean Corpuscular Hemoglobin 32.6 pg (28.0-32.0); Mean Corpuscular Hgb Conc. 35.5 g/dL (32.0-36.0); Mean Corpuscular Volume 91.9 fL (80.0-100.0); Monocytes # (auto) 0.3 10 ^3/uL (0-1.3); Monocytes % (auto) 4.5 % (0.0-12.0); Neutrophils # (auto) 6.6 10 ^3/uL (1.6-8.6); Neutrophils % (auto) 87.4 % (37.0-80.0); Nucleated Red Blood Cells % 0.1 %; Platelet Count (auto) 143 10^3/uL (140-450); Red Blood Cells 3.99 10^6/uL (4.0-5.20); Red Cell Distribution Width 13.3 % (11.8-14.3); White Blood Cell 7.5 10^3/uL (4.4-10.8)
[2024-10-26 06:37] LABS: Anion Gap 11 (5-15); Carbon Dioxide 23 mmol/L (20-31); Chloride 104 mmol/L (98-107); Potassium 3.9 mmol/L (3.5-5.1); Sodium 138 mmol/L (136-145)
[2024-10-26 06:38] LABS: Calcium 9.1 mg/dL (8.7-10.4)
[2024-10-26 06:43] LABS: BUN/Creatinine Ratio 21.8 (10.0-20.0)
[2024-10-26 06:45] LABS: Blood Urea Nitrogen 26 mg/dL (9-23); Glucose 220 mg/dL (74-106)
[2024-10-26 07:56] LABS: Platelet Estimate Adequate
[2024-10-26] MEDS ORDERED: FUROSEMIDE 40 MG/4 ML VIAL IV SCH (10:00)
[2024-10-26] MEDS ORDERED: AZITHROMYCIN 500MG/ 250ML 250 ML IV ONE (10:30)
[2024-10-26] MEDS ORDERED: LEVO500T91 PO (15:24)
[2024-10-26] MEDS ORDERED: MECL1TAB42 PO (15:24)
[2024-10-26] MEDS ORDERED: PRED20TA2 PO (15:24)
--- NOTE | 2024-10-26 17:13 | DVHDSRES ---
Discharge Summary Date of Admission Resident Creating Document: NICOLE PHILIPPE RESIDENT Oct 25, 2024 at 05:39 Date of Discharge: Oct 26, 2024 Admitting Diagnosis Acute hypoxic respiratory failure Labs/Diagnostic Data: Laboratory Results Test 10/26/24 05:46 10/26/24 05:36 10/25/24 08:05 10/25/24 06:06 POC Glucose 207 mg/dl (70-106) White Blood Count 7.5 10^3/uL (4.4-10.8) Red Blood Count 3.99 10^6/uL (4.0-5.20) Hemoglobin 13.0 g/dL (12.2-16.2) Hematocrit 36.7 % (36.0-46.0) Mean Corpuscular Volume 91.9 fL (80.0-100.0) Mean Corpuscular Hemoglobin 32.6 pg (28.0-32.0) Mean Corpuscular Hemoglobin Concent 35.5 g/dL (32.0-36.0) Red Cell Distribution Width 13.3 % (11.8-14.3) Platelet Count 143 10^3/uL (140-450) Mean Platelet Volume 8.2 fL (6.9-10.8) Neutrophils (%) (Auto) 87.4 % (37.0-80.0) Lymphocytes (%) (Auto) 6.9 % (10.0-50.0) Monocytes (%) (Auto) 4.5 % (0.0-12.0) Eosinophils (%) (Auto) 0.5 % (0.0-7.0) Basophils (%) (Auto) 0.7 % (0.0-2.0) Neutrophils # (Auto) 6.6 10 ^3/uL (1.6-8.6) Lymphocytes # (Auto) 0.5 10 ^3/uL (0.4-5.4) Monocytes # (Auto) 0.3 10 ^3/uL (0-1.3) Eosinophils # (Auto) 0 10 ^3/uL (0-0.8) Basophils # (Auto) 0.1 10 ^3/uL (0-0.2) Nucleated Red Blood Cells 0.1 % Platelet Estimate Adequate Sodium Level 138 mmol/L (136-145) Potassium Level 3.9 mmol/L (3.5-5.1) Chloride Level 104 mmol/L (98-107) Carbon Dioxide Level 23 mmol/L (20-31) Anion Gap 11 (5-15) Blood Urea Nitrogen 26 mg/dL (9-23) Creatinine 1.19 mg/dL (0.550-1.02) Glomerular Filtration Rate Calc 48 mL/min (>90) BUN/Creatinine Ratio 21.8 (10.0-20.0) Serum Glucose 220 mg/dL (74-106) Calcium Level 9.1 mg/dL (8.7-10.4) Urine Color Colorless (Yellow) Urine Clarity Clear (Clear) Urine pH 5.5 (5.0-9.0) Urine Specific [place] 1.005 (1.001-1.035) Urine Protein Negative (Negative) Urine Ketones Negative (Negative) Urine Blood Negative /uL (Negative) Urine Nitrite Negative (Negative) Urine Bilirubin Negative (Negative) Urine Urobilinogen Normal mg/dL (Negative) Urine Leukocyte Esterase Negative /uL (Negative) Urine RBC <1 /hpf (0 - 4) Urine Microscopic WBC /HPF (0-5) Urine Squamous Epithelial Cells None seen /hpf (<5) Urine Bacteria None seen /hpf (None Seen) Urine Glucose Normal mg/dL (Normal) Influenza Type A Antigen Negative (Negative) Influenza Type B Antigen Negative (Negative) SARS-CoV-2 Antigen (Rapid) Negative (NEGATIVE) Test 10/25/24 05:19 10/25/24 02:13 Troponin I High Sensitivity 3 ng/L (</=34) Prothrombin Time 10.3 sec (9.3-11.8) Prothrombin Time INR 0.97 (0.9-1.15) Activated Partial Thromboplast Time 25.7 SEC (24.5-34.5) Total Bilirubin 0.6 mg/dL (0.2-1.0) Aspartate Amino Transferase (AST) 16 U/L (13-40) Alanine Aminotransferase (ALT) < 9 U/L (7-40) Alkaline Phosphatase 52 U/L (46-116) B-Type Natriuretic Peptide 34.30 pg/mL (0-100) Total Protein 6.3 g/dL (5.7-8.2) Albumin 4.1 g/dL (3.2-4.8) Other Laboratory Tests 10/26/24 05:36 Brief Hx & Hospital Course: HPI: 73 YO F with a history of heart failure, asthma, rheumatoid arthritis, and lupus affecting her kidneys, presents to the hospital with acute shortness of breath and dizziness. She was discharged from the hospital one week ago and had been managing her condition at home with breathing treatments. The patient reports that yesterday she experienced some dizziness but was otherwise stable. However, last night she woke up with severe difficulty breathing. She had not performed her usual evening breathing treatment. Her attempted to assist her with a breathing treatment, but afterwards she found herself unable to walk and felt she would pass out if she tried to lie down. Concerned by her symptoms, her called paramedics. The patient's medical history is significant for heart failure, diagnosed in 2019. She has an implantable cardioverter-defibrillator (ICD) and reports a complex history with this device, including a malfunction that required replacement of a lead wire at [facility]. She also has a history of asthma, which appears to be exacerbated in the current episode. Regarding substance use, Ms. Graham denies any history of smoking and reports only occasional wine consumption. She lives with her , who appears to be involved in her care. Summary: Patient was diagnosed with acute on chronic hypoxic respiratory failure due to possible asthma exacerbation or possible pneumonitis due to g positive/Gram-negative bacteria, patient was treated with breathing treatment one dose of Solu-Medrol 40 mg and IV ceftriaxone, patient also has SLE and rheumatoid arthritis and on steroid and she is following with outpatient staff educator. Two the patient is feeling better, off oxygen, patient is hemodynamically stable and going to be discharged home with levofloxacin. Advised patient to follow up with PCP in 1-2 weeks. Condition at Discharge: Fair Final Diagnosis/Problems List # Acute on chronic hypoxic respiratory failure # Acute Asthma exacerbation # Possible pneumonitis due to viral/gram +/- bacterial # Acute on chronic Heart failure with improved ejection fraction # AICD # VALE on CKD stage 3 likely due to be VMN # ruled out UTI # Type 2 diabetes mellitus with hyperglycemia # SLE # rheumatoid arthritis Discharge Disposition: Home SNF Discharge Will this Physician continue t: No Discharge Instruct/Medications Diet: Cardiac 2g Na,low cholest Activity: Light activity Follow Up/Referral: pcp Medications: below Care Plan: - levaquin 500mg x 5days - prednisone taper 20mg tablets (1 tab daily x 5 days, then 1/2 tab daily for 6 days) - meclicine for dizziness - continue other home medications - follow-up with PCP to review symptom resolution and discharge review. 1-2 week follow-up. Discharge Statement: "Patient was advised to return to the ER or call 911 if any headaches, dizziness, shortness of breath, chest pain, abdominal pain, bleeding, fevers, or worsening of medical condition. Patient was counseled about treatment plan, medications, possible side effects, patientverbalized understanding. All questions were answered to the best of my ability. This discharge took greater then 30 minutes in planning, reviewing documentation, counseling the patient, and discussing with other team members." ASSESSMENT ASSESSMENT Assessment Acute on chronic hypoxic respiratory failure, acute asthma exacerbation NICOLE PHILIPPE RESIDENT Oct 26, 2024 17:13
== END 2024-10-26 18:00 | disposition home or self-care (01) | DRG 177 ==
LOC: ER 01:49 → EDBD 01:49 → EDSEX 01:49 → OVERFLOW 05:39 → EAST 15:10
PROVIDERS: ADMIT Student in an Organized Health Care Education/Training Program; ATTEND Student in an Organized Health Care Education/Training Program
DX: J15.69 Pneumonia due to other Gram-negative bacteria (principal); J96.21 Acute and chronic respiratory failure with hypoxia; N17.0 Acute kidney failure with tubular necrosis; J45.901 Unspecified asthma with (acute) exacerbation; J44.0 Chronic obstructive pulmonary disease with (acute) lower respiratory infection; I24.9 Acute ischemic heart disease, unspecified; E11.65 Type 2 diabetes mellitus with hyperglycemia; J12.9 Viral pneumonia, unspecified; N18.30 Chronic kidney disease, stage 3 unspecified; I11.0 Hypertensive heart disease with heart failure; I50.9 Heart failure, unspecified; M32.14 Glomerular disease in systemic lupus erythematosus; M06.9 Rheumatoid arthritis, unspecified; Z88.1 Allergy status to other antibiotic agents; Z91.013 Allergy to seafood; Z88.2 Allergy status to sulfonamides; Z91.048 Other nonmedicinal substance allergy status; Z79.82 Long term (current) use of aspirin; Z86.73 Personal history of transient ischemic attack (TIA), and cerebral infarction without residual deficits; Z79.899 Other long term (current) drug therapy; Z83.3 Family history of diabetes mellitus; Z95.0 Presence of cardiac pacemaker
CPT/HCPCS: 36415; 71045; 80048; 80053; 81001; 82962; 83880; 84484; 85025; 85610; 85730; 87081; 87426; 87804; 93005; 94640; 97163; 99291; G0378; J1815

== ENCOUNTER 2024-11-03 10:12 | Outpatient (CLI) | payer OTHER ==
[~2024-11-03 10:12] MED LIST changes: +LEVO500T91 PO; +MECL1TAB42 PO
[2024-11-03 11:18] LABS: Sodium 143 mmol/L (136-145)
[2024-11-03 11:19] LABS: Anion Gap 11 (5-15); Carbon Dioxide 24 mmol/L (20-31)
[2024-11-03 11:27] LABS: Blood Urea Nitrogen 24 mg/dL (9-23); Chloride 108 mmol/L (98-107); Glucose 178 mg/dL (74-106)
== END 2024-11-03 17:00 | disposition home or self-care (01) ==
LOC: LAB 10:12
PROVIDERS: ATTEND Internal Medicine
DX: N18.31 Chronic kidney disease, stage 3a (principal); E55.9 Vitamin D deficiency, unspecified
CPT/HCPCS: 36415; 80048; 82306

== ENCOUNTER → 2024-12-01 | Outpatient (CLI) | payer OTHER ==
[2024-12-01 11:50] LABS: Albumin 4.5 g/dL (3.2-4.8); Alkaline Phosphatase 47 U/L (46-116); Anion Gap 8 (5-15); BUN/Creatinine Ratio 20.2 (10.0-20.0); Calcium 10.0 mg/dL (8.7-10.4); Carbon Dioxide 24 mmol/L (20-31); Potassium 4.4 mmol/L (3.5-5.1); Sodium 140 mmol/L (136-145); Total Protein 6.9 g/dL (5.7-8.2)
[2024-12-01 11:51] LABS: Alanine Aminotransferase 9 U/L (7-40); Bilirubin, Total 0.6 mg/dL (0.2-1.0); Blood Urea Nitrogen 25 mg/dL (9-23); Chloride 108 mmol/L (98-107); Glucose 195 mg/dL (74-106)
[2024-12-01 11:54] LABS: Free T3 3.02 pg/mL (2.3-4.2)
== END | disposition home or self-care (01) ==
LOC: LAB 10:51
PROVIDERS: ATTEND Internal Medicine
DX: I13.10 Hypertensive heart and chronic kidney disease without heart failure, with stage 1 through stage 4 chronic kidney disease, or unspecified chronic kidney disease (principal); E11.22 Type 2 diabetes mellitus with diabetic chronic kidney disease; I50.9 Heart failure, unspecified; N18.9 Chronic kidney disease, unspecified
CPT/HCPCS: 36415; 80053; 83036; 84443; 84480; 84481

== ENCOUNTER 2024-12-12 11:17 | Emergency (ER) | payer OTHER ==
[~2024-12-12] VITALS: Ht 160 cm; Wt 100.0 kg
--- NOTE | 2024-12-12 11:52 | ED.PDOC ---
Musculoskeletal HPI Comments 74 y/o F, with PMHx of R.A, CHF, COPD, asthma, and lupus presents to the ED for CC of bilateral leg pain. Patient states, she has been experiencing bilateral leg pain with associated shortness of breath onset, last night (12/11/24). Patient reports, pain to be worse in her left than her right and has been unable to bear weight onto her left extremity since, start of symptoms. Patient has no visible swelling or erythema to bilateral lower extremities at this time. Patient denies trauma, injury, or fall. No other associated symptoms, modifiers, recent injuries or sick contacts present at this time. Chief Complaint: Lower Extremity Time Seen by MD: 11:40 Primary Care Provider: [facility] Reviewed Notes: Nurses Notes, Medications, Allergies Allergies: Coded Allergies: Doxycycline (Verified Allergy, Unknown, 09/19/21) Erythromycin (Verified Allergy, Unknown, 08/18/19) Fish Allergy (Verified Allergy, Unknown, 09/19/21) Nickel (Verified Allergy, Unknown, 08/18/19) Sulfa Antibiotics (Verified Allergy, Unknown, 08/18/19) Home Meds Active Scripts Amoxicillin Trihydrate (Amoxicillin) 500 Mg Tab, 1 TAB PO TID for 7 Days, #21 TAB Prov:ENRIQUE NOEL MD 12/12/24 Prednisone (Prednisone) 10 Mg Tab, 10 MG PO DAILY for 7 Days, #7 MG Prov:ENRIQUE NOEL MD 12/12/24 Meclizine HCl (Meclizine 25) 25 Mg Tab, 25 MG PO BIDP PRN for 5 Days, #10 TAB 0 Refills Prov:LEONEL CAICEDO MD 10/26/24 Prednisone (Prednisone) 20 Mg Tab, 20 MG PO DAILY for 11 Days, #8 MG taper. 1 tab x5 days, half tab x6 days Prov:LEONEL CAICEDO MD 10/26/24 Levofloxacin Hemihydrate (LEVOFLOXACIN) 500 Mg Tab, 1 TAB PO DAILY for 5 Days, #5 TAB Prov:LEONEL CAICEDO MD 10/26/24 Prednisone (Prednisone) 20 Mg Tab, 20 MG PO DAILY for 3 Days, #3 TAB Prov:WILLIAM MCCLURE MD 10/18/24 Reported Medications Etanercept (Enbrel Sureclick) 50 Mg/Ml Inj, 1 SYR SUBCUT QWEEKLY for 28 Days, #4 02/28/24 Furosemide (Furosemide) 40 Mg Tab, 1 TAB PO DAILY 02/26/24 Hydrocortone (Hydrocortisone 1%) 1 Applic Ap, 1 APPLIC TOP BID Apply topically to affected area twice a day. 11/22/23 Ergocalciferol (Vitamin D) 50,000 Unit Cap, 1 CP PO QWEEKLY 11/22/23 Metoprolol Succinate (Metoprolol Succinate Er) 25 Mg Tab, 0.5 TAB PO DAILY for 90 Days, #45 11/22/23 Alendronate Sodium (Alendronate Sodium) 70 Mg Tab, 1 TAB PO QWEEKLY 11/22/23 Albuterol Sulfate (Albuterol Sulfate Hfa) 108 Mcg/Act Aer, 2 PUFF INH Q4-6HR 11/22/23 Potassium Chloride (Klor-Con M10) 10 Meq Tab, 1 TAB PO DAILYPRN PRN for TAKE WITH LASIX, #30 TAB 5 Refills POTASSIUM CHLORIDE ER 08/18/19 Aspirin (Asa) 81 Mg Ch, 1 TAB PO DAILY 10/12/11 Information Source: Patient Mode of Arrival: Wheelchair Location: Bilateral Extremity Location: Leg Timing: Hours Prehospital treatment: None Severity: Moderate Able to Move Extremity: Yes Bear Weight: No Pain: Moderate Mechanism: Spontaneous Circumstances: Spontaneous Onset of Symptoms: Spontaneous Symptoms: Pain DVT Risk Factors: CHF Last Tetanus: Unknown History of: Arthritis Associated signs and symptoms: Leg pain Past Medical History PAST MEDICAL HISTORY: Arthritis, Asthma, CHF, COPD, HTN, TIA Surgical History: BTL, Hernia Repair, Pacemaker 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 Family History Family History: Family hx of DM, Family hx of heart barak Social History Smoker: Non-Smoker Alcohol: Occasionally Drugs: Denies Drug Use Lives In: Home Constitutional: denies: chills, diaphoresis, fatigue, fever, malaise, sweats, weakness, others EENTM: denies: blurred vision, double vision, ear bleeding, ear discharge, ear drainage, ear pain, ear ringing, eye pain, eye redness, hearing loss, mouth pain, mouth swelling, nasal discharge, nose bleeding, nose congestion, nose pain, photophobia, tearing, throat pain, throat swelling, voice changes, others Respiratory: denies: cough, hemoptysis, orthopnea, SOB at rest, shortness of breath, SOB with excertion, stridor, wheezing, others Cardiovascular: denies: chest pain, dizzy spells, diaphoresis, Dyspnea on exertion, edema, irregular heart beat, left arm pain, lightheadedness, palpitations, PND, syncope, others Gastrointestinal: denies: abdomen distended, abdominal pain, blood streaked bowels, constipated, diarrhea, dysphagia, difficulty swallowing, hematemesis, melena, nausea, poor appetite, poor fluid intake, rectal bleeding, rectal pain, vomiting, others Genitourinary: denies: abnormal vagina bleeding, burning, dyspareunia, dysuria, flank pain, frequency, hematuria, incontinence, pain, , vagina discharge, urgency, others Neurological: denies: dizziness, fainting, headache, left sided numbness, left sided weakness, numbness, paresthesia, pre-existing deficit, right sided nu mbness, right sided weakness, seizure, speech problems, tingling, tremors, weakness, others Musculoskeletal: reports: others (leg pain); denies: back pain, gout, joint pain, joint swelling, muscle pain, muscle stiffness, neck pain Integumetry: denies: bruises, change in color, change in hair/nails, dryness, laceration, lesions, lumps, rash, wounds, others Allergic/Immunocompromised: denies: Difficulty Healing, Frequent Infections, Hives, Itching, others Hematologic/Lymphatic: denies: anemia, blood clots, easy bleeding, easy b ruising, swollen glands, others Endocrine: denies: excessive hunger, excessive sweating, excessive thirst, excessive urination, flushing, intolerance to cold, intolerance to heat, unexplained weight gain, unexplained weight loss, others Psychiatric: denies: anxiety, bipolar disorder, depression, hopeless, panic disorder, schizophrenia, sleepless, suicidal, others All Other Systems: Reviewed and Negative Physical Exam General Appearance: Moderate Distress HEENT: Normal ENT Inspection, Pharynx Normal, TMs Normal Neck: Full Range of Motion, Non-Tender, Normal, Normal Inspection Respiratory: Chest Non-Tender, Lungs Clear, No Accessory Muscle Use, No Respiratory Distress, Normal Breath Sounds Cardiovascular: No Edema, No JVD, No Murmur, No Gallop, Normal Peripheral Pulses, Regular Rate/Rhythm Breast Exam: Deferred Gastrointestinal: No Organomegaly, Non Tender, No Pulsatile Mass, Normal Bowel Sounds, Soft Genitalia: Deferred Pelvic: Deferred Rectal: Deferred Extremities: No calf tenderness, Pedal edema Musculoskeletal : Apperance: Normal Neurologic: Alert, No Motor Deficits, No Sensory Deficits Cerebellar Function: NOT DONE Reflexes: NOT DONE Skin: Dry, Normal Color, Warm Peripheral Pulses: 3+ Radial (R), 3+ Radial (L) Lymphatic: No Adenopathy Was a procedure done? Was a procedure done?: No Differential Diagnosis EXT Differential Diagnosis: Cellulitis, CHF, Deep Vein Thrombosis, Rheumatoid, Arthritis X-Ray, Labs, Meds, VS Vital Signs Date Time Temp Pulse Resp B/P (MAP) Pulse Ox O2 Delivery O2 Flow Rate FiO2 12/12/24 13:11 98.3 89 18 148/86 (106) 96 98.3 12/12/24 13:11 18 96 Room Air* 0 21 12/12/24 11:21 97.6 102 20 140/82 (101) 96 97.6 Current Medications Medications (Trade) Dose Ordered Sig/Kristel Route Start Time Stop Time Status Last Admin Methylprednisolone Sodium Succinate (Solu Medrol) 125 mg ONCE ONCE IM 12/12/24 12:00 12/12/24 12:01 DC 12/12/24 13:10 Acetaminophen/ Hydrocodone Bitart ([place] 10/325MG Tab) 1 tab ONCE ONCE PO 12/12/24 12:00 12/12/24 12:01 DC 12/12/24 13:05 Patient alert pain Came in because of left lower extremity pain. DVT study reviewed does not show any acute process. Vitals stable. Answering questions. History of rheumatoid arthritis. Was given steroid. Was given pain medication. Heart rate within normal limits pain Saturation pristine on room air. Chest x-ray reviewed does not show any acute changes. Early pneumonitis. Was given prescription of prednisolone amoxicillin antibiotic. Explained to the patient. Was told to follow up with her primary care physician. Was told to come back if there is any problem. [facility] [id number] [place] [id number] Ph: [phone] DIAGNOSTIC IMAGING Diagnostic Imaging Report : [id number] Signed PATIENT: SIOBHAN ASHRAF AACCT: [id number] UNIT: [id number] : 1950 LOC: ER ROOM / BED: / AGE / SEX: 74 / F ADM STATUS: REG ER SERVICE 1150 ORDERING PHYSICIAN: ENRIQUE NOEL MD PROCEDURE(s): LLDVT - LT Lower DVT REASON: dvt ORDER NUMBER(s): [id number], ACCESSION NUMBER(s): [id number] Left lower extremity venous duplex Clinical History: edema Comparison: US BILAT LOWER DVT on DOS: 10/16/24, US BILAT LOWER DVT on DOS: 02/27/24 Findings: Duplex Doppler evaluation of the deep venous system of the left lower extremity from the common femoral vein to the popliteal vein including color Doppler and spectral/pulsed waveform analysis was performed. The common femoral vein demonstrates appropriate compressibility and waveform variability. There is compressibility/patency of the great saphenous vein at the proximal thigh. The femoral vein demonstrates appropriate compressibility and waveform variability. The deep femoral vein demonstrates appropriate compressibility and waveform variability. The popliteal vein demonstrates appropriate compressibility and waveform variability. There is normal compressibility at the tibioperoneal trunk. 5 cm left popliteal cyst. Impression: No left femoropopliteal venous thrombosis. If clinical concern/symptoms persist or worsen, short-interval follow-up study i s suggested. ATED BY: FRAN HUERTA MD DICTATED DATE/TIME: 12/12/24 1300 SIGNED BY: FRAN HUERTA MD SIGNED DATE/TIME: 12/12/24 1300 CC: [place] [id number] Ph: [phone] DIAGNOSTIC IMAGING Diagnostic Imaging Report : [id number] Signed PATIENT: SIOBHAN ASHRAF AACCT: [id number] UNIT: [id number] : 1950 LOC: ER ROOM / BED: / AGE / SEX: 74 / F ADM STATUS: REG ER SERVICE 1150 ORDERING PHYSICIAN: ENRIQUE NOEL MD PROCEDURE(s): CXRP - CHEST PORTABLE REASON: sob ORDER NUMBER(s): [id number], ACCESSION NUMBER(s): [id number] EXAM: XY CHEST PORTABLE Indication: sob Technique: Single frontal view of the chest was obtained Comparison: XY CHEST PORTABLE on DOS: 10/25/24, XY CHEST PORTABLE on DOS: 02/26/24, XY CHEST PORTABLE on DOS: 01/14/24, XY CHEST XRAY 1 VIEW on DOS: 11/25/23, XY CHEST PORTABLE on DOS: 11/20/23 FINDINGS: Lines and Tubes: Cardiac pacemaker projects over left chest wall. Lungs: No focal consolidation. Pleura: No effusion. No pneumothorax. Cardiomediastinal contours: Unremarkable. Atherosclerotic vascular calcific ations of the thoracic aorta are noted. Bones: No acute osseous abnormality. IMPRESSION: No acute cardiopulmonary disease. ATED BY: BRENDA ZURITA MD DICTATED DATE/TIME: 12/12/24 1224 SIGNED BY: BRENDA ZURITA MD SIGNED DATE/TIME: 12/12/24 1224 CC: Time of 1ST Reevaluation: 12:10 Reevaluation 1ST: Improved Patient Education/Counseling: Diagnosis, Treatment Family Education/Counseling: Diagnosis, Treatment Departure 1 Departure Time of Disposition: 13:22 Impression: Primary Impression: Pneumonitis Additional Impression: Arthritis of joint of lower extremity Disposition: 01 HOME / SELF CARE / HOMELESS Condition: Good e-Prescriptions Amoxicillin Trihydrate (Amoxicillin) 500 Mg Tab 1 TAB PO TID for 7 Days, #21 TAB Prov: ENRIQUE NOEL MD 12/12/24 Prednisone (Prednisone) 10 Mg Tab 10 MG PO DAILY for 7 Days, #7 MG Prov: ENRIQUE NOEL MD 12/12/24 Discharged With: Self Critical Care Note Critical Care Time?: No Stability Stability form required: No Heart Score Heart Score: Heart Score Response (Comments) Value History N/A 0 EKG N/A 0 Age N/A 0 Risk Factors N/A 0 Troponin N/A 0 Total 0 I personally scribed for ENRIQUE NOEL MD ([email or web address]) on 12/12/24 at 11:52. Electronically submitted by Marci Oneil ([email or web address]). I personally scribed for ENRIQUE NOEL MD ([email or web address]) on 12/12/24 at 13:30. Electronically submitted by Marci Oneil ([email or web address]). I personally scribed for ENRIQUE NOEL MD ([email or web address]) on 12/12/24 at 13:33. Electronically submitted by Marci Oneil ([email or web address]). ENRIQUE NOEL MD Dec 12, 2024 11:52
--- NOTE | 2024-12-12 12:26 | DVH ---
EXAM: XY CHEST PORTABLE Indication: sob Technique: Single frontal view of the chest was obtained Comparison: XY CHEST PORTABLE on DOS: 10/25/24, XY CHEST PORTABLE on DOS: 02/26/24, XY CHEST PORTABLE on DOS: 01/14/24, XY CHEST XRAY 1 VIEW on DOS: 11/25/23, XY CHEST PORTABLE on DOS: 11/20/23 FINDINGS: Lines and Tubes: Cardiac pacemaker projects over left chest wall. Lungs: No focal consolidation. Pleura: No effusion. No pneumothorax. Cardiomediastinal contours: Unremarkable. Atherosclerotic vascular calcifications of the thoracic ao rta are noted. Bones: No acute osseous abnormality. IMPRESSION: No acute cardiopulmonary disease.
--- NOTE | 2024-12-12 13:02 | DVH ---
Left lower extremity venous duplex Clinical History: edema Comparison: US BILAT LOWER DVT on DOS: 10/16/24, US BILAT LOWER DVT on DOS: 02/27/24 Findings: Duplex Doppler evaluation of the deep venous system of the left lower extremity from the common femor al vein to the popliteal vein including color Doppler and spectral/pulsed waveform analysis was perfo rmed. The common femoral vein demonstrates appropriate compressibility and waveform variability. There is compressibility/patency of the great saphenous vein at the proximal thigh. The femoral vein demonstrates appropriate compressibility and waveform variability. The deep femoral vein demonstrates appropriate compressibility and waveform variability. The popliteal vein demonstrates appropriate compressibility and waveform variability. There is normal compressibility at the tibioperoneal trunk. 5 cm left popliteal cyst. Impression: No left femoropopliteal venous thrombosis. If clinical concern/symptoms persist or worsen, short-interval follow-up study is suggested.
[2024-12-12] MEDS: HYDROcodone-ACET 10/325MG TAB PO ONE (13:05)
[2024-12-12] MEDS: methylPREDNISolone SOD SUCC 125 MG/2 ML VL IM ONE (13:10)
[2024-12-12 13:11] VITALS: BP 148/86; PULSE 89; RESP 18; TEMP 98.3; O2SAT 96
[2024-12-12] MEDS ORDERED: PRED10TA PO (13:23)
[2024-12-12] MEDS ORDERED: AMOX500T3 PO (13:25)
== END 2024-12-12 13:46 | disposition home or self-care (01) ==
LOC: ER 11:17
DX: J98.4 Other disorders of lung (principal); M19.90 Unspecified osteoarthritis, unspecified site; J44.0 Chronic obstructive pulmonary disease with (acute) lower respiratory infection; I11.0 Hypertensive heart disease with heart failure; I50.9 Heart failure, unspecified; Z86.73 Personal history of transient ischemic attack (TIA), and cerebral infarction without residual deficits; Z95.0 Presence of cardiac pacemaker; Z88.2 Allergy status to sulfonamides; Z88.1 Allergy status to other antibiotic agents; Z79.899 Other long term (current) drug therapy
CPT/HCPCS: 71045; 93971; 96372; 99285; J2919

== ENCOUNTER 2024-12-14 11:37 | Outpatient (CLI) | payer OTHER ==
[~2024-12-14 11:37] MED LIST changes: +AMOX500T3 PO; +PRED10TA PO
[2024-12-14 12:05] LABS: Hematocrit 42.3 % (36.0-46.0); Hemoglobin 14.7 g/dL (12.2-16.2); Mean Corpuscular Hemoglobin 32.6 pg (28.0-32.0); Mean Corpuscular Volume 93.9 fL (80.0-100.0); Nucleated Red Blood Cells % 0.1 %
[2024-12-14 12:29] LABS: Alanine Aminotransferase 11 U/L (7-40); Albumin 4.7 g/dL (3.2-4.8); Alkaline Phosphatase 46 U/L (46-116); Anion Gap 8 (5-15); BUN/Creatinine Ratio 23.1 (10.0-20.0); Bilirubin, Total 0.5 mg/dL (0.2-1.0); Calcium 10.0 mg/dL (8.7-10.4); Carbon Dioxide 27 mmol/L (20-31); Chloride 105 mmol/L (98-107); Potassium 4.2 mmol/L (3.5-5.1); Sodium 140 mmol/L (136-145); Total Protein 6.9 g/dL (5.7-8.2)
[2024-12-14 12:35] LABS: Blood Urea Nitrogen 28 mg/dL (9-23); Glucose 212 mg/dL (74-106)
[2024-12-15 08:07] LABS: Immunoglobulin A 261 mg/dL (64-422); Immunoglobulin G, Serum 730 mg/dL (586-1602); Immunoglobulin M 42 mg/dL (26-217)
== END 2024-12-14 17:00 | disposition home or self-care (01) ==
LOC: LAB 11:37
PROVIDERS: ATTEND Internal Medicine Rheumatology
DX: E55.9 Vitamin D deficiency, unspecified (principal); M32.10 Systemic lupus erythematosus, organ or system involvement unspecified; M05.79 Rheumatoid arthritis with rheumatoid factor of multiple sites without organ or systems involvement; Z79.899 Other long term (current) drug therapy
CPT/HCPCS: 36415; 80053; 82306; 82784; 85025; 85652; 86141

== ENCOUNTER 2025-01-16 14:56 | Outpatient (CLI) | payer OTHER ==
[2025-01-16] MEDS ORDERED: ALBUTEROL SULF 2.5 MG/0.5ML(0.5%) NEB SOLN ONE (15:15)
== END 2025-01-16 17:00 | disposition home or self-care (01) ==
LOC: RT 14:56
PROVIDERS: ATTEND Internal Medicine Pulmonary Disease
DX: J44.9 Chronic obstructive pulmonary disease, unspecified (principal)
CPT/HCPCS: 94060; 94727; 94729

== ENCOUNTER 2025-02-21 12:51 | Outpatient (CLI) | payer OTHER ==
[2025-02-21 13:21] LABS: Hematocrit 42.5 % (36.0-46.0); Hemoglobin 14.5 g/dL (12.2-16.2); Mean Corpuscular Hemoglobin 31.5 pg (28.0-32.0); Mean Corpuscular Volume 91.9 fL (80.0-100.0); Nucleated Red Blood Cells % 0.0 %
[2025-02-21 13:45] LABS: Alanine Aminotransferase 10 U/L (7-40); Albumin 4.5 g/dL (3.2-4.8); Alkaline Phosphatase 52 U/L (46-116); Anion Gap 11 (5-15); BUN/Creatinine Ratio 17.4 (10.0-20.0); Bilirubin, Total 0.5 mg/dL (0.2-1.0); Blood Urea Nitrogen 21 mg/dL (9-23); Calcium 9.3 mg/dL (8.7-10.4); Carbon Dioxide 24 mmol/L (20-31); Chloride 106 mmol/L (98-107); Potassium 4.2 mmol/L (3.5-5.1); Sodium 141 mmol/L (136-145); Total Protein 7.1 g/dL (5.7-8.2)
[2025-02-21 13:46] LABS: Glucose 173 mg/dL (74-106)
[2025-02-22 08:07] LABS: Immunoglobulin A 245 mg/dL (64-422); Immunoglobulin G, Serum 718 mg/dL (586-1602); Immunoglobulin M 44 mg/dL (26-217)
== END 2025-02-22 17:00 | disposition home or self-care (01) ==
LOC: LAB 12:51
PROVIDERS: ATTEND Internal Medicine Rheumatology
DX: R94.5 Abnormal results of liver function studies (principal); M05.79 Rheumatoid arthritis with rheumatoid factor of multiple sites without organ or systems involvement; M32.10 Systemic lupus erythematosus, organ or system involvement unspecified
CPT/HCPCS: 36415; 80053; 82784; 85025; 85652; 86141

== ENCOUNTER 2025-03-11 15:22 | Inpatient (IN) | payer OTHER ==
[~2025-03-11] VITALS: Ht 157.5 cm; Wt 104.0 kg
--- NOTE | 2025-03-11 15:29 | ECG ---
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
[2025-03-11 15:49] LABS: Hematocrit 42.4 % (36.0-46.0); Hemoglobin 14.5 g/dL (12.2-16.2); Mean Corpuscular Hemoglobin 31.4 pg (28.0-32.0); Mean Corpuscular Volume 91.9 fL (80.0-100.0); Nucleated Red Blood Cells % 0.1 %
--- NOTE | 2025-03-11 15:49 | ED.PDOC ---
HPI Comments CARDOZ: CP, PALPITATION EKG here in the ED shows sinus rhythm rate of 84 right bundle-branch block. Otherwise unremarkable. HPI: Poor Historian. 74-year-old female brought in by ambulance from home for evaluation of few week history of intermittent palpitations and 30 minutes prior to arrival left-sided chest pain nonradiating nonspecific. No alleviating or precipitating factors. Patient was started on amiodarone recently by her doctor which she states compliance with it. She is not on blood thinners except aspirin. She also takes Lasix and metoprolol. She said she took all her medications this morning. Pre-hospital course vital signs were stable. Patient received aspirin and two rounds of nitroglycerin which improved her chest discomfort. Her main complaint at this time on arrival is palpitations. Past Medical History: Past Surgical History: REVIEW OF SYSTEMS: CONSTITUTIONAL: Denies acute: fever, diaphoresis, chills, generalized weakness. HEAD: Denies acute: headache, photophobia Eyes: Denies acute: Double vision, vision loss, eye pain, eye discharge. EARS: Denies acute: tinnitus, hearing loss, ear discharge, ear pain, THROAT: Denies acute: sore throat, swelling, difficulty swallowing , pain with swa llowing, change in voice. NECK: Denies acute: neck pain, neck swelling, stiff neck. HEART: Denies acute : LUNGS: Denies acute: SOB, wheezing, cough, hemoptysis ABDOMEN: Denies acute: abdominal pain, Nausea, Vomiting, diarrhea, melena , hematemesis, hematochezia SKIN: Denies acute: rash, redness, lesions, itchiness. EXTREMITIES: Denies acute: calf pain, numbness, tingling, weakness, denies pain in extremity. Denies acute: Low back pain. Neuro: Denies acute: focal neurological deficit, motor or sensory focal neurological deficit, tremors, seizure like activity, confusion, dizziness, change in mental status, loss of bowel or bladder function, cauda equina like symptoms. : Denies acute: dysuria, hematuria, flank pain, increase in urinary frequency. PSYCH: Denies acute: hallucination, suicidal ideation, homicidal ideation. FEMALE: Denies acute: abnormal vaginal bleeding, foul odor, unusual discharge. PHYSICAL EXAM: General: ---mild-----acute distress, awake and alert. Head: normocephalic, atraumatic. Neck: supple, trachea is midline, no swelling. Throat: Normal phonation. Eyes:, no erythema, no purulent discharge, no proptosis, no icterus. Heart: regular rate, regular rhythm, no significant murmur appreciated. Lungs: no apparent respiratory distress, Able to speak in full sentences. No wheezing, no rhonchi, no crackles. No stridors Clear to auscultation bilaterally. Abdomen: non tender to palpation, non distended, soft, no guarding, no rebound, + bowel sounds. Obese Neuro: Awake, Alert, oriented to name, self, situation, follows commands GCS=15. Speech is normal. Skin: no petechia, no purpura, no cyanosis, non-pale, not jaundice. Lower extremities: --trace bilateral- Pitting edema. Patient is on Lasix no deformity, no focal swelling, no calf TTP. Makes eye contact. moves all four extremities. Face: no apparent facial droop. ED COURSE: DISCLAIMER: This medical document was created using an electronic medical record system with voice recognition software and computerized dictation system. Although this document has been carefully reviewed, there might still be some phonetic and typographical errors. Occasional wrong-word or "sound-alike" substitutions may have occurred due to the inherent limitations of voice recognition software. These areas are purely typographical due to imperfections of the software programs and do not reflect any compromise in the patient's medical care. Please read the chart carefully and recognize, using context, where these substitutions have occurred. Chief Complaint: Chest Pain Time Seen by MD: 15:24 Primary Care Provider: [facility]ME Allergies: Coded Allergies: Doxycycline (Verified Allergy, Unknown, 09/19/21) Erythromycin (Verified Allergy, Unknown, 08/18/19) Fish Allergy (Verified Allergy, Unknown, 09/19/21) Nickel (Verified Allergy, Unknown, 08/18/19) Sulfa Antibiotics (Verified Allergy, Unknown, 08/18/19) Home Meds Active Scripts Amoxicillin Trihydrate (Amoxicillin) 500 Mg Tab, 1 TAB PO TID for 7 Days, #21 TAB Prov:ENRIQUE NOEL MD 12/12/24 Prednisone (Prednisone) 10 Mg Tab, 10 MG PO DAILY for 7 Days, #7 MG Prov:ENRIQUE NOEL MD 12/12/24 Meclizine HCl (Meclizine 25) 25 Mg Tab, 25 MG PO BIDP PRN for 5 Days, #10 TAB 0 Refills Prov:LEONEL CAICEDO MD 10/26/24 Prednisone (Prednisone) 20 Mg Tab, 20 MG PO DAILY for 11 Days, #8 MG taper. 1 tab x5 days, half tab x6 days Prov:LEONEL CAICEDO MD 10/26/24 Levofloxacin Hemihydrate (LEVOFLOXACIN) 500 Mg Tab, 1 TAB PO DAILY for 5 Days, #5 TAB Prov:LEONEL CAICEDO MD 10/26/24 Prednisone (Prednisone) 20 Mg Tab, 20 MG PO DAILY for 3 Days, #3 TAB Prov:WILLIAM MCCLURE MD 10/18/24 Reported Medications Etanercept (Enbrel Sureclick) 50 Mg/Ml Inj, 1 SYR SUBCUT QWEEKLY for 28 Days, #4 02/28/24 Furosemide (Furosemide) 40 Mg Tab, 1 TAB PO DAILY 02/26/24 Hydrocortone (Hydrocortisone 1%) 1 Applic Ap, 1 APPLIC TOP BID Apply topically to affected area twice a day. 11/22/23 Ergocalciferol (Vitamin D) 50,000 Unit Cap, 1 CP PO QWEEKLY 11/22/23 Metoprolol Succinate (Metoprolol Succinate Er) 25 Mg Tab, 0.5 TAB PO DAILY for 90 Days, #45 11/22/23 Alendronate Sodium (Alendronate Sodium) 70 Mg Tab, 1 TAB PO QWEEKLY 11/22/23 Albuterol Sulfate (Albuterol Sulfate Hfa) 108 Mcg/Act Aer, 2 PUFF INH Q4-6HR 11/22/23 Potassium Chloride (Klor-Con M10) 10 Meq Tab, 1 TAB PO DAILYPRN PRN for TAKE WITH LASIX, #30 TAB 5 Refills POTASSIUM CHLORIDE ER 08/18/19 Aspirin (Asa) 81 Mg Ch, 1 TAB PO DAILY 10/12/11 Mode of Arrival: EMS Past Medical History PAST MEDICAL HISTORY: Arthritis, Asthma, CHF, COPD, HTN, TIA Surgical History: BTL, Hernia Repair, Pacemaker 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 History Family History Family History: Family hx of DM, Family hx of heart barak Social History Smoker: Non-Smoker Alcohol: Occasionally Drugs: Denies Drug Use Lives In: Home X-Ray, Labs, Meds, VS Vital Signs Date Time Temp Pulse Resp B/P (MAP) Pulse Ox O2 Delivery O2 Flow Rate FiO2 03/11/25 15:32 98.7 83 18 141/86 99 98.7 03/11/25 15:28 84 Lab Test 03/11/25 16:32 03/11/25 15:38 Range/Units Troponin I High Sensitivity 4 < 3 L </=34 ng/L White Blood Count 6.1 4.4-10.8 10^3/uL Red Blood Count 4.61 4.0-5.20 10^6/uL Hemoglobin 14.5 12.2-16.2 g/dL Hematocrit 42.4 36.0-46.0 % Mean Corpuscular Volume 91.9 80.0-100.0 fL Mean Corpuscular Hemoglobin 31.4 28.0-32.0 pg Mean Corpuscular Hemoglobin Concent 34.2 32.0-36.0 g/dL Red Cell Distribution Width 13.9 11.8-14.3 % Platelet Count 164 140-450 10^3/uL Mean Platelet Volume 7.5 6.9-10.8 fL Neutrophils (%) (Auto) 72.8 37.0-80.0 % Lymphocytes (%) (Auto) 18.1 10.0-50.0 % Monocytes (%) (Auto) 6.6 0.0-12.0 % Eosinophils (%) (Auto) 1.8 0.0-7.0 % Basophils (%) (Auto) 0.7 0.0-2.0 % Neutrophils # (Auto) 4.4 1.6-8.6 10 ^3/uL Lymphocytes # (Auto) 1.1 0.4-5.4 10 ^3/uL Monocytes # (Auto) 0.4 0-1.3 10 ^3/uL Eosinophils # (Auto) 0.1 0-0.8 10 ^3/uL Basophils # (Auto) 0 0-0.2 10 ^3/uL Nucleated Red Blood Cells 0.1 % Sodium Level 140 136-145 mmol/L Potassium Level 4.3 3.5-5.1 mmol/L Chloride Level 107 98-107 mmol/L Carbon Dioxide Level 22 20-31 mmol/L Anion Gap 11 5-15 Blood Urea Nitrogen 21 9-23 mg/dL Creatinine 1.14 H 0.550-1.02 mg/dL Glomerular Filtration Rate Calc 51 >90 mL/min BUN/Creatinine Ratio 18.4 10.0-20.0 Serum Glucose 151 H 74-106 mg/dL Calcium Level 9.3 8.7-10.4 mg/dL Total Bilirubin 0.4 0.2-1.0 mg/dL Aspartate Amino Transferase (AST) 22 13-40 U/L Alanine Aminotransferase (ALT) 16 7-40 U/L Alkaline Phosphatase 61 46-116 U/L Total Protein 6.9 5.7-8.2 g/dL Albumin 4.4 3.2-4.8 g/dL Departure 1 Departure Time of Disposition: 17:24 Impression: Primary Impression: Chest pain Additional Impression: Palpitation Disposition: ADMITTED INPATIENT Admit to: Tele Condition: Guarded Discharged With: Self CIARAN NIX DO Mar 11, 2025 15:49
[2025-03-11 16:06] LABS: Alanine Aminotransferase 16 U/L (7-40); Albumin 4.4 g/dL (3.2-4.8); Alkaline Phosphatase 61 U/L (46-116); Anion Gap 11 (5-15); BUN/Creatinine Ratio 18.4 (10.0-20.0); Bilirubin, Total 0.4 mg/dL (0.2-1.0); Blood Urea Nitrogen 21 mg/dL (9-23); Calcium 9.3 mg/dL (8.7-10.4); Carbon Dioxide 22 mmol/L (20-31); Potassium 4.3 mmol/L (3.5-5.1); Sodium 140 mmol/L (136-145); Total Protein 6.9 g/dL (5.7-8.2)
[2025-03-11 16:08] LABS: Chloride 107 mmol/L (98-107); Glucose 151 mg/dL (74-106)
--- NOTE | 2025-03-11 16:10 | DVH ---
CHEST RADIOGRAPH Indication: cp Technique: Single frontal view of the chest was obtained Comparison: XY CHEST PORTABLE on DOS: 12/12/24, XY CHEST PORTABLE on DOS: 10/25/24, XY CHEST PORTABLE on DOS: 02/26/24 FINDINGS: Lines and Tubes: None Lungs: No focal consolidation. Pleura: No effusion. No pneumothorax. Cardiomediastinal contours: Unremarkable Bones: No acute osseous abnormality. IMPRESSION: 1. Pacemaker in place over the left chest with leads unchanged from 12/12/2024.
--- NOTE | 2025-03-11 16:55 | ECG ---
[facility] Test Date: 2025-03-11 Test Time: 16:53:05 Pat Name: SIOBHAN ASHRAF Department: ED Room: Gender: F Ssds Mk 2 Advanced Operator: : 1950 Requested By: CIARAN NIX Order Number: [id number] Reading MD: James Nunes Measurements Intervals [place] Rate: 84 P: 70 MI: 149 QRS: 29 QRSD: 126 T: 31 QT: 410 QTc: 485 Interpretive Statements Sinus rhythm Right bundle branch block Electronically Signed On 03-11-2025 17:04:40 PDT by aJmes Nunes Please click the below link to view image of tracing.
--- NOTE | 2025-03-11 19:29 | ECG ---
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
[2025-03-11] MEDS ORDERED: MORPHINE SULFATE INJ 2 MG/ml SYRG IV PRN (20:00)
[2025-03-11] MEDS ORDERED: TEMAZEPAM 15 MG CAP PO PRN (20:00)
[2025-03-11] MEDS ORDERED: ALBUTEROL SULF 2.5 MG/0.5ML(0.5%) NEB SOLN NEB PRN (20:00)
[2025-03-11] MEDS ORDERED: ONDANSETRON HCL 4 MG/2 ML VIAL IV PRN (20:00)
[2025-03-11] MEDS ORDERED: NITROGLYCERIN 0.4 MG SL TAB SL PRN (20:00)
[2025-03-11 21:06] VITALS: O2SAT 99
[2025-03-11 21:07] VITALS: BP 141/86; PULSE 83; RESP 18; TEMP 98.7; O2SAT 99
--- NOTE | 2025-03-11 22:14 | DVHHP2 ---
History of Present Illness Reason for Visit: High blood pressure History of Present Illness 74-year-old female presents for evaluation of elevated blood pressure. Patient reports developing high blood pressure since yesterday. She also developed left-sided chest pain with palpitations today. Denies any fever or chills. No other acute complaints reported. Past Medical History Asthma, CHF, COPD, hypertension Past Surgical History Hernia repair, pacemaker, BTL Family History Noncontributory Smoke: No ALCOHOL: none Drugs: None Lives: with Family Review of Systems Review of Systems Review of systems are currently negative otherwise addressed in HPI. Allergies: Coded Allergies: Doxycycline (Verified Allergy, Unknown, 09/19/21) Erythromycin (Verified Allergy, Unknown, 08/18/19) Fish Allergy (Verified Allergy, Unknown, 09/19/21) Nickel (Verified Allergy, Unknown, 08/18/19) Sulfa Antibiotics (Verified Allergy, Unknown, 08/18/19) Medications Current Medications Medications Dose Ordered Sig/Kristel Route Start Time Stop Time Status Last Admin Dose Admin Nitroglycerin 0.4 mg Q5MINP PRN SL 03/11/25 20:00 Morphine Sulfate 2 mg Q30M PRN IV 03/11/25 20:00 Albuterol 2.5 mg Q6HPRN PRN NEB 03/11/25 20:00 Aspirin 81 mg DAILY PO 03/12/25 10:00 Furosemide 40 mg DAILY PO 03/12/25 10:00 Metoprolol Succinate 12.5 mg DAILY PO 03/12/25 10:00 Temazepam 15 mg QHSP PRN PO 03/11/25 20:00 Ondansetron HCl 4 mg Q4HP PRN IV 03/11/25 20:00 Acetaminophen 650 mg Q6HP PRN PO 03/11/25 20:00 Exam Vital Signs Vital Signs Date Time Temp Pulse Resp B/P (MAP) Pulse Ox O2 Delivery O2 Flow Rate FiO2 03/11/25 21:07 98.7 83 18 141/86 99 0.0 21 98.7 03/11/25 21:06 Room Air Exam Gen: 74-year-old female in mild distress., morbidly obese Skin: Warm, dry, normal color and texture, no rash. HEENT: Normocephalic atraumatic, mucous membranes moist and pink. Neck: Cervical and supraclavicular nodes normal without enlargement, trachea is midline, thyroid gland is normal without masses. Pulmonary: Clear to auscultation and percussion bilaterally. Cardiac: Regular rate and rhythm. No murmur Abdomen: Soft, nontender, nondistended, bowel sounds present all 4 quadrants, no guarding, no rigidity, no organomegaly. Extremities: No cyanosis, clubbing, no edema Neuro: Cranial nerves II through XII grossly intact, normal affect and speech, no focal motor deficits. Labs/Xrays ORDERING PHYSICIAN: LUCIA MORAN RESIDENT PROCEDURE(s): ECIDC - ECHO 2D MODE CARDIAC DOP REASON: CHF ORDER NUMBER(s): [id number], ACCESSION NUMBER(s): [id number] APPROVED REPORT EXAM: Two-dimensional and M-mode echocardiogram with Doppler and color Doppler. Blood Pressure: 98/55 mmHg INDICATION CHF Surgery/Intervention Pacemaker: RISK FACTORS Obesity: Height: 5'2, Weight: 242 DIMENSIONS LVDd 4.2 (3.8-5.7cm) LA (2D) (1.9-4.0cm) Aortic Root 3.1 (2.0- 3.7cm) LVDs 2.9 (2.5-4.0cm) LA (MM) (1.9-4.0cm) Aortic Cusp Exc 1.5 (1.5- 2.0cm) EF (%) 60.0 (55-70%) Rt. Atrium 3.8 (1.9-4.0cm) Asc. Aorta cm IVSd 1.1 (0.7-1.1cm) RV (D) (1.8-2.4cm) PWd 1.0 (0.7-1.1cm) Mitral Valve Mitral Mitral Stenosis E wave 0.61m/s MV Mean GR. mmHg A wave 0.86m/s MV Peak GR. 25mmHg E/A ratio 0.7 2D MVA cm2 DECEL Time 261ms PRESS 1/2 Time ms Aortic Valve Aortic Valve Aortic Stenosis V1 0.89m/s AO Mean GR. 5mmHg V2 1.46m/s AO Peak GR. 9mmHg LVOT Diameter 2.2 (1.8-2.4cm) Doppler GLORY 2.32cm2 Pulmonic Valve V2 1.08m/s Tricuspid Valve TR Velocity 2.46m/s RVSP 28mmHg Conclusion lvef 55% by visual estimate normal RV function left atrium enlarged mild no severe valve abnormalities noted pacing lead in RA SIGNED BY: ESCOBAR ESTEBAN MD ORDERING PHYSICIAN: CIARAN NIX DO PROCEDURE(s): CXRP - CHEST PORTABLE REASON: cp ORDER NUMBER(s): [id number], ACCESSION NUMBER(s): [id number] CHEST RADIOGRAPH Indication: cp Technique: Single frontal view of the chest was obtained Comparison: XY CHEST PORTABLE on DOS: 12/12/24, XY CHEST PORTABLE on DOS: 10/25/24, XY CHEST PORTABLE on DOS: 02/26/24 FINDINGS: Lines and Tubes: None Lungs: No focal consolidation. Pleura: No effusion. No pneumothorax. Cardiomediastinal contours: Unremarkable Bones: No acute osseous abnormality. IMPRESSION: 1. Pacemaker in place over the left chest with leads unchanged from 12/12/2024. Labs Test 03/11/25 16:32 03/11/25 15:38 Range/Units Troponin I High Sensitivity 4 </=34 ng/L White Blood Count 6.1 4.4-10.8 10^3/uL Red Blood Count 4.61 4.0-5.20 10^6/uL Hemoglobin 14.5 12.2-16.2 g/dL Hematocrit 42.4 36.0-46.0 % Mean Corpuscular Volume 91.9 80.0-100.0 fL Mean Corpuscular Hemoglobin 31.4 28.0-32.0 pg Mean Corpuscular Hemoglobin Concent 34.2 32.0-36.0 g/dL Red Cell Distribution Width 13.9 11.8-14.3 % Platelet Count 164 140-450 10^3/uL Mean Platelet Volume 7.5 6.9-10.8 fL Neutrophils (%) (Auto) 72.8 37.0-80.0 % Lymphocytes (%) (Auto) 18.1 10.0-50.0 % Monocytes (%) (Auto) 6.6 0.0-12.0 % Eosinophils (%) (Auto) 1.8 0.0-7.0 % Basophils (%) (Auto) 0.7 0.0-2.0 % Neutrophils # (Auto) 4.4 1.6-8.6 10 ^3/uL Lymphocytes # (Auto) 1.1 0.4-5.4 10 ^3/uL Monocytes # (Auto) 0.4 0-1.3 10 ^3/uL Eosinophils # (Auto) 0.1 0-0.8 10 ^3/uL Basophils # (Auto) 0 0-0.2 10 ^3/uL Nucleated Red Blood Cells 0.1 % Sodium Level 140 136-145 mmol/L Potassium Level 4.3 3.5-5.1 mmol/L Chloride Level 107 98-107 mmol/L Carbon Dioxide Level 22 20-31 mmol/L Anion Gap 11 5-15 Blood Urea Nitrogen 21 9-23 mg/dL Creatinine 1.14 H 0.550-1.02 mg/dL Glomerular Filtration Rate Calc 51 >90 mL/min BUN/Creatinine Ratio 18.4 10.0-20.0 Serum Glucose 151 H 74-106 mg/dL Calcium Level 9.3 8.7-10.4 mg/dL Total Bilirubin 0.4 0.2-1.0 mg/dL Aspartate Amino Transferase (AST) 22 13-40 U/L Alanine Aminotransferase (ALT) 16 7-40 U/L Alkaline Phosphatase 61 46-116 U/L Total Protein 6.9 5.7-8.2 g/dL Albumin 4.4 3.2-4.8 g/dL SEPSIS Sepsis Screen Date sepsis recognized/suspect: Mar 11, 2025 Time Sepsis recognized/suspect: 6 Recent Procedure: No On Antibiotic Therapy: No Respiratory Rate >20: No Heart Rate >90: No Temp<36 C (96.8 F) or >38.3 C: No SBP <90 or MAP <65 mmHG: No New Acute Mental Status Change: No Is the patient on CPAP, BIPAP,: No Physician Orders Electrocardigram (03/11/25 15:24) Electrocardigram (03/11/25 16:24) Multimedia Programmer (03/11/25 ) Chest Portable (03/11/25 15:27) Electrocardigram (03/11/25 10:35) Electrocardigram (03/11/25 12:35) Admit (03/11/25 19:52) Nitroglycerin Sublingual (Ntrostat Subli (03/11/25 20:00) Morphine Sulfate Injection (03/11/25 20:00) Stat Ekg For Chest Pain (03/11/25:52) Notify Of Changes From Base (03/11/25:52) Principal Security Architect For 24 Hours (03/11/25:52) Emergency Dysrhythmia Protocol (03/11/25:52) Rhythm Strips Once Every Shift (03/11/25:52) Oxygen By Nasal Cannula (03/11/25:52) Albuterol Medneb (Ventolin Medneb) (03/11/25 20:00) Aspirin Tablet (03/12/25 10:00) Furosemide Tablet (Lasix Tablet) (03/12/25 10:00) Metoprolol Xl Succinate (Toprol Xl) (03/12/25 10:00) Basic Metabolic Panel (03/12/25 04:00) Temazepam (Restoril) (03/11/25 20:00) Ondansetron Hcl (Zofran) (03/11/25 20:00) Cardiac Diet-2gna,Lofat,Lochol (03/12/25 Breakfast) Condition: Fair (03/11/25 19:59) Acetaminophen Tablet (Tylenol Tablet) (03/11/25 20:00) Bedrest With Bathroom Privileg (03/11/25 19:59) Vital Signs Date Time Temp Pulse Resp B/P (MAP) Pulse Ox O2 Delivery O2 Flow Rate FiO2 03/11/25 21:07 98.7 83 18 141/86 99 0.0 21 98.7 03/11/25 21:06 99 Room Air 0.0 03/11/25 21:06 99 Room Air* 0 21 03/11/25 15:32 98.7 83 18 141/86 99 98.7 03/11/25 15:28 84 Laboratory Tests Test 03/11/25 15:38 White Blood Count 6.1 10^3/uL (4.4-10.8) Assessment/Plan Assessment/Plan Assessment Hypertensive crisis Chest pain Palpitations Acute kidney injury Status post pacemaker Plan Admit the patient to telemetry to the hospitalist As needed antihypertensives Resume home medications Continue treatment per orders Plan discussed with: Patient My Orders Orders - DOE,GERRY AGACNP Procedure Category Date Status Time Admit ADMIT 03/11/25 Transmitted 19:52 Nitroglycerin PHA 03/11/25 In Process Sublingual (Ntrostat 20:00 Morphine Sulfate PHA 03/11/25 In Process Injection 20:00 Stat Ekg For Chest [facility] 03/11/25 In Process Pain 19:52 Notify Of Changes [facility] 03/11/25 In Process From Base 19:52 Principal Security Architect For [facility] 03/11/25 In Process 24 Hours 19:52 Emergency Dysrhythmia [facility] 03/11/25 In Process Protocol 19:52 Rhythm Strips Once [facility] 03/11/25 In Process Every Shift 19:52 Oxygen By Nasal RT 03/11/25 Transmitted Cannula 19:52 Albuterol Medneb PHA 03/11/25 In Process (Ventolin Medneb) 20:00 Aspirin Tablet PHA 03/12/25 In Process 10:00 Furosemide Tablet PHA 03/12/25 In Process (Lasix Tablet) 10:00 Metoprolol Xl PHA 03/12/25 In Process Succinate (Toprol Xl) 10:00 Basic Metabolic Panel LAB 03/12/25 Verified 04:00 Temazepam (Restoril) PHA 03/11/25 In Process 20:00 Ondansetron Hcl PHA 03/11/25 In Process (Zofran) 20:00 Cardiac DIET 03/12/25 Transmitted Diet-2gna,Lofat,Lochol Breakfast Condition: Fair [facility] 03/11/25 In Process 19:59 Acetaminophen Tablet PHA 03/11/25 In Process (Tylenol Tablet) 20:00 Bedrest With Bathroom [facility] 03/11/25 In Process Privileg 19:59 Date of Service: Mar 11, 2025 Billing Provider: MANUEL DOE Common Visit Codes: [id number] INP/OBS CARE (HIGH) MANUEL DOE Mar 11, 2025 22:14
[2025-03-12 05:00] VITALS: BP 131/65; PULSE 82; RESP 20; TEMP 98.4; O2SAT 99
[2025-03-12] MEDS ORDERED: AMIO200T33 PO (05:21)
[2025-03-12] MEDS ORDERED: FURO20TA3 PO (05:21)
[2025-03-12] MEDS ORDERED: EMPA1TAB PO (05:21)
[2025-03-12] MEDS ORDERED: POTA-228 PO (05:22)
[2025-03-12] MEDS ORDERED: SACU1TAB PO (05:23)
[2025-03-12] MEDS ORDERED: FLUT1INH6 IN (05:23)
[2025-03-12] MEDS ORDERED: CYA100I PO (05:24)
[2025-03-12] MEDS: ACETAMINOPHEN 325 MG TAB PO PRN (05:32)
[2025-03-12 05:37] LABS: Potassium 4.0 mmol/L (3.5-5.1); Sodium 140 mmol/L (136-145)
[2025-03-12 05:38] LABS: Anion Gap 12 (5-15); Calcium 9.6 mg/dL (8.7-10.4); Carbon Dioxide 21 mmol/L (20-31)
[2025-03-12 05:43] LABS: BUN/Creatinine Ratio 19.1 (10.0-20.0); Blood Urea Nitrogen 22 mg/dL (9-23)
[2025-03-12 05:51] LABS: Chloride 107 mmol/L (98-107); Glucose 147 mg/dL (74-106)
[2025-03-12] MEDS: METOPROLOL SUCCINATE XL 50 MG TAB PO SCH (08:18)
[2025-03-12] MEDS: FUROSEMIDE 40 MG TAB PO SCH (08:19)
[2025-03-12 09:01] VITALS: BP 140/59; PULSE 70; RESP 11; TEMP 97.7; O2SAT 98
[2025-03-12 09:38] VITALS: O2SAT 99
[2025-03-12 10:00] VITALS: O2SAT 98
[2025-03-12 13:00] VITALS: BP 100/44; PULSE 78; RESP 17; TEMP 97.7; O2SAT 98
--- NOTE | 2025-03-12 14:16 | DVHDS2 ---
Discharge Summary Date of Admission Mar 11, 2025 at 19:52 Date of Discharge: Mar 12, 2025 Labs/Diagnostic Data: Laboratory Results Test 03/12/25 04:35 03/11/25 16:32 03/11/25 15:38 Sodium Level 140 mmol/L (136-145) Potassium Level 4.0 mmol/L (3.5-5.1) Chloride Level 107 mmol/L (98-107) Carbon Dioxide Level 21 mmol/L (20-31) Anion Gap 12 (5-15) Blood Urea Nitrogen 22 mg/dL (9-23) Creatinine 1.15 mg/dL (0.550-1.02) Glomerular Filtration Rate Calc 50 mL/min (>90) BUN/Creatinine Ratio 19.1 (10.0-20.0) Serum Glucose 147 mg/dL (74-106) Calcium Level 9.6 mg/dL (8.7-10.4) Troponin I High Sensitivity 4 ng/L (</=34) White Blood Count 6.1 10^3/uL (4.4-10.8) Red Blood Count 4.61 10^6/uL (4.0-5.20) Hemoglobin 14.5 g/dL (12.2-16.2) Hematocrit 42.4 % (36.0-46.0) Mean Corpuscular Volume 91.9 fL (80.0-100.0) Mean Corpuscular Hemoglobin 31.4 pg (28.0-32.0) Mean Corpuscular Hemoglobin Concent 34.2 g/dL (32.0-36.0) Red Cell Distribution Width 13.9 % (11.8-14.3) Platelet Count 164 10^3/uL (140-450) Mean Platelet Volume 7.5 fL (6.9-10.8) Neutrophils (%) (Auto) 72.8 % (37.0-80.0) Lymphocytes (%) (Auto) 18.1 % (10.0-50.0) Monocytes (%) (Auto) 6.6 % (0.0-12.0) Eosinophils (%) (Auto) 1.8 % (0.0-7.0) Basophils (%) (Auto) 0.7 % (0.0-2.0) Neutrophils # (Auto) 4.4 10 ^3/uL (1.6-8.6) Lymphocytes # (Auto) 1.1 10 ^3/uL (0.4-5.4) Monocytes # (Auto) 0.4 10 ^3/uL (0-1.3) Eosinophils # (Auto) 0.1 10 ^3/uL (0-0.8) Basophils # (Auto) 0 10 ^3/uL (0-0.2) Nucleated Red Blood Cells 0.1 % Total Bilirubin 0.4 mg/dL (0.2-1.0) Aspartate Amino Transferase (AST) 22 U/L (13-40) Alanine Aminotransferase (ALT) 16 U/L (7-40) Alkaline Phosphatase 61 U/L (46-116) Total Protein 6.9 g/dL (5.7-8.2) Albumin 4.4 g/dL (3.2-4.8) Other Laboratory Tests 03/12/25 04:35 03/11/25 15:38 Final Diagnosis/Problems List htn urgency Discharge Disposition: Home Discharge Instruct/Medications Diet: Consistent carbohydrate, Cardiac 2g Na,low cholest Activity: No Restrictions, As Tolerated Follow Up/Referral: [facility] clinic w/ dr lott Medications: resume home Scheduled Albuterol Sulfate (Albuterol Sulfate Hfa), 2 PUFF INH Q4-6HR, (Reported) Alendronate Sodium (Alendronate Sodium), 1 TAB PO QWEEKLY, (Reported) Amiodarone Hcl (Amiodarone Hcl), 200 MG PO BID, (Reported) Amoxicillin Trihydrate (Amoxicillin), 1 TAB PO TID Aspirin (Asa), 1 TAB PO DAILY, (Reported) Empagliflozin (Jardiance), 10 MG PO DAILY, (Reported) Ergocalciferol (Vitamin D), 1 CP PO QWEEKLY, (Reported) Etanercept (Enbrel Sureclick), 1 SYR SUBCUT QWEEKLY, (Reported) Fluticasone Furoate-Vilanterol (Breo Ellipta 200-25 Mcg/INH), 1 INH IN DAILY, (Reported) Furosemide (Furosemide), 1 TAB PO DAILY, (Reported) Furosemide (Furosemide), 1 TAB PO DAILY, (Reported) Hydrocortone (Hydrocortisone 1%), 1 APPLIC TOP BID, (Reported) Levofloxacin Hemihydrate (Levofloxacin), 1 TAB PO DAILY Metoprolol Succinate (Metoprolol Succinate Er), 0.5 TAB PO DAILY, (Reported) Potassium Chloride (Potassium Chloride ER), 10 MEQ PO EOD, (Reported) Prednisone (Prednisone), 20 MG PO DAILY Prednisone (Prednisone), 20 MG PO DAILY Prednisone (Prednisone), 10 MG PO DAILY Sacubitril-Valsartan (Entresto 24-26 mg), 0.5 TAB PO BID, (Reported) Vitamin B12 (Vitamin B-12), 1,000 MCG PO DAILY, (Reported) Scheduled PRN Meclizine HCl (Meclizine 25), 25 MG PO BIDP PRN Potassium Chloride (Klor-Con M10), 1 TAB PO DAILYPRN PRN for TAKE WITH LASIX, (Reported) Discharge Statement: "Patient was advised to return to the ER or call 911 if any headaches, dizziness, shortness of breath, chest pain, abdominal pain, bleeding, fevers, or worsening of medical condition. Patient was counseled about treatment plan, medications, possible side effects, patientverbalized understanding. All questions were answered to the best of my ability. This discharge took greater then 30 minutes in planning, reviewing documentation, counseling the patient, and discussing with other team members." ASSESSMENT ASSESSMENT Assessment htn urgency Date of Service: Mar 12, 2025 Billing Provider: BRADEN BOWEN MD Common Visit Codes: [id number]/[id number] DISCH DAY >30min BRADEN BOWEN MD Mar 12, 2025 14:16
== END 2025-03-12 14:43 | disposition home or self-care (01) | DRG 305 ==
LOC: EDUNIT# 15:22 → EDBD 15:22 → ER 15:22 → OVERFLOW 19:52 → EEVIPCON 19:52
PROVIDERS: ADMIT Student in an Organized Health Care Education/Training Program; ATTEND Student in an Organized Health Care Education/Training Program
DX: I16.0 Hypertensive urgency (principal); N17.9 Acute kidney failure, unspecified; J44.89 Other specified chronic obstructive pulmonary disease; I50.9 Heart failure, unspecified; I11.0 Hypertensive heart disease with heart failure; Z88.2 Allergy status to sulfonamides; Z88.1 Allergy status to other antibiotic agents; Z91.013 Allergy to seafood; Z86.73 Personal history of transient ischemic attack (TIA), and cerebral infarction without residual deficits; Z95.0 Presence of cardiac pacemaker; Z83.3 Family history of diabetes mellitus; Z82.49 Family history of ischemic heart disease and other diseases of the circulatory system; Z98.51 Tubal ligation status
CPT/HCPCS: 36415; 71045; 80048; 80053; 84484; 85025; 93005; G0378

== ENCOUNTER 2025-05-11 11:47 | Day surgery (SDC) | payer OTHER ==
[2025-05-09 11:21] LABS: Hematocrit 43.4 % (36.0-46.0); Hemoglobin 15.1 g/dL (12.2-16.2); Mean Corpuscular Hemoglobin 32.3 pg (28.0-32.0); Mean Corpuscular Volume 92.5 fL (80.0-100.0); Nucleated Red Blood Cells % 0.3 %
[2025-05-09 11:36] LABS: INR 0.97 (0.9-1.15); Partial Thromboplastin Time 28.7 SEC (24.5-34.5); Prothrombin Time 10.3 sec (9.3-11.8)
[2025-05-09 12:00] LABS: Alanine Aminotransferase 10 U/L (7-40); Albumin 4.5 g/dL (3.2-4.8); Alkaline Phosphatase 59 U/L (46-116); Anion Gap 9 (5-15); BUN/Creatinine Ratio 15.4 (10.0-20.0); Blood Urea Nitrogen 19 mg/dL (9-23); Calcium 9.9 mg/dL (8.7-10.4); Carbon Dioxide 26 mmol/L (20-31); Chloride 104 mmol/L (98-107); Potassium 4.5 mmol/L (3.5-5.1); Sodium 139 mmol/L (136-145); Total Protein 7.2 g/dL (5.7-8.2)
[2025-05-09 12:01] LABS: Bilirubin, Total 0.6 mg/dL (0.2-1.0); Glucose 174 mg/dL (74-106)
[2025-05-11] VITALS (7 sets, daily range): BP systolic 128–136; BP diastolic 69–83; PULSE 70–82; RESP 12–14; O2SAT 96–98
[~2025-05-11] VITALS: Ht 157.5 cm; Wt 101.6 kg
[~2025-05-11 11:47] MED LIST changes: +AMIO200T33 PO; -AMOX500T3 PO; +CYA100I PO; +EMPA1TAB PO; -ETAN50IN10 SUBCUT; +FLUT1INH6 IN; +FURO20TA3 PO; -LEVO500T91 PO; +POTA-228 PO; -PRED10TA PO; -PRED20TA2 PO; +SACU1TAB PO
[2025-05-11] MEDS ORDERED: IODIXANOL 320MG/ML 100ML BTL IV ONE (16:30)
[2025-05-11] MEDS ORDERED: VERAPAMIL 2.5MG/ML INJ 2ML VIAL IV ONE (16:38)
[2025-05-11] MEDS ORDERED: ANGIOMAX 250 MG VIAL IV ONE (16:38)
[2025-05-11] MEDS ORDERED: HEPARIN SODIUM (PORCINE) 5000 UNITS/ML 1ML VIAL ONE (16:38)
[2025-05-11] MEDS ORDERED: LIDOCAINE 2%HCL (LOCAL ANESTH.) INJ 20ML MDV ONE (16:39)
[2025-05-11] MEDS ORDERED: fentaNYL CITRATE 100 MCG/2 ML VL ONE (16:39)
[2025-05-11] MEDS ORDERED: MIDAZOLAM HCL 2MG/2ML 2ml VIAL (1mg/ml) ONE (16:39)
[2025-05-11] MEDS ORDERED: SODIUM CHL 0.9% 0 ML ONE (16:39)
--- NOTE | 2025-05-11 17:41 | DVHOP2 ---
Operative Report - 2 Report Details Date: 05/11/25 Preop Diagnosis: CAD Postop Diagnosis: Status post ICD. Coronary artery disease. Cardiomyopathy. Surgeon: Pearl Nunes MD Anesthesiologist: Conscious sedation. I personally ordered and supervised the administration of conscious sedation. The procedure lasted about 20 minutes. I personally supervised and evaluated the patient throughout the procedure. Anesthesia: Mac, Local Consent: The patient was informed of the risks and benefits of the procedure. These include but are not limited to complications of anesthesia, postoperative infection, incomplete relief of symptoms, recurrence of symptoms, damage to blood vessels, nerves and tendons, deep venous thrombosis, pulmonary embolism and possible need for repeat surgery in the future. Complications: No complications Findings: Mild CAD. Mild cardiomyopathy. Indications for Surgery: Chest pain. Abnormal stress test. Name of Procedure Performed Left heart catheterization. Bilateral cine coronary angiography. Left ventriculography. Procedure Details Procedure Details: Prior local anesthesia with 2% lidocaine to the right wrist and full informed consent obtained patient was prepped and draped in usual fashion with ultrasound and fluoroscopic guidance we placed a sheath into the ulnar artery given the radial artery had difficult in tortuous anatomy. The sheath was placed into the ulnar artery as mentioned and a tiger catheter was used for ventriculography and cannulation both right and left coronary ostia without complications Hemodynamics: Aortic blood pressure was 110/70. End-diastolic pressure was eight. There was no gradient across the aortic valve on pullback. Coronary anatomy the RCA is a large vessel it is normal in its proximal mid and distal segments. The PDA and posterolateral branches are normal. Left main is large and normal. Left anterior descending is a large vessel it is normal in its proximal mid and distal segments with only mild 15% stenosis in the mid section of the LAD.. Diagonals are free of significant disease. The circumflex is a large vessel it is nondominant giving off small marginal branches free of significant disease Ventriculography in the FERNANDEZ projection shows an EF of 40%. Impression: Mild CAD. Mild cardiomyopathy. Normal end-diastolic pressures. Recommendations: Medical therapy to continue. Risk factor modification ensues. Condition Good Disposition Home Date of Service: May 11, 2025 Billing Provider: PEARL NUNES Sr., MD Cardiology Common Codes: [id number] INP/OBS CARE (High) Cardiology Procedure Codes: [id number] HEART CATH W/INTRA INJ PEARL NUNES Sr., MD May 11, 2025 17:41
== END 2025-05-11 19:45 | disposition home or self-care (01) ==
LOC: CATH 11:47
PROVIDERS: ATTEND Internal Medicine
DX: R94.39 Abnormal result of other cardiovascular function study (principal); I25.10 Atherosclerotic heart disease of native coronary artery without angina pectoris; I25.9 Chronic ischemic heart disease, unspecified; I50.9 Heart failure, unspecified; J44.9 Chronic obstructive pulmonary disease, unspecified; F41.9 Anxiety disorder, unspecified; F32.A Depression, unspecified; Z88.1 Allergy status to other antibiotic agents; Z88.2 Allergy status to sulfonamides; Z91.013 Allergy to seafood; Z79.82 Long term (current) use of aspirin; Z79.899 Other long term (current) drug therapy; Z90.710 Acquired absence of both cervix and uterus; Z98.51 Tubal ligation status
CPT/HCPCS: 36415; 80053; 85025; 85610; 85730; 93458; C1769; C1894; J1644; J2250; J3010; Q9967; 99152; 99153